=== PATIENT | female | born 1965 | race Caucasian/White ===

== ENCOUNTER 2020-07-29 16:05 | Observation (INO) ==
--- NOTE | 2020-07-29 16:35 | Emergency Department Note ---
History of Present Illness General Chief Complaint: Cardiac Assessment Stated Complaint: PAIN LOWER BACK, CHEST PAIN, DR TROY Time Seen by Provider: 07/29/20 16:21 History of Present Illness Provider Complaint: chest pain Onset (ago): day(s) 3 Duration: intermittent Onset: during exertion Pain Location: substernal Pain Radiation: none Severity: moderate Maximum Pain Intensity: 7 Current Pain Intensity: 7 Quality: + aching Relieved By: + nothing Exacerbated By: + exertion and + inspiration Context: no recent illness, no recent surgery, no recent immobilization, no recent travel and no history of DVT/PE Associated symptoms: no nausea, no vomiting, no diaphoresis, no dyspnea, no syncope, no palpitations, no fever, no cough and no leg swelling Home Medications Medication Instructions Recorded Confirmed Type albuterol sulfate 2 puff INHALATION QID PRN 07/29/20 07/29/20 History alprazolam 1 mg PO QID PRN 07/29/20 07/29/20 History atorvastatin 40 mg PO DAILY 07/29/20 07/29/20 History budesonide-formoterol [Symbicort] 2 puff INHALATION BID 07/29/20 07/29/20 History citalopram 10 mg PO QAM 07/29/20 07/29/20 History citalopram 40 mg PO QAM 07/29/20 07/29/20 History epinephrine 0.3 mg IM Q4H PRN 07/29/20 07/29/20 History losartan 25 mg PO DAILY 07/29/20 07/29/20 History mirtazapine 30 mg PO HS 07/29/20 07/29/20 History montelukast [Singulair] 10 mg PO PM 07/29/20 07/29/20 History pantoprazole [Protonix] 20 mg PO DAILY 07/29/20 07/29/20 History quetiapine [Seroquel] 400 mg PO QPM 07/29/20 07/29/20 History tiotropium bromide [Spiriva with 1 cap INHALATION DAILY 07/29/20 07/29/20 History HandiHaler] topiramate 100 mg PO BID 07/29/20 07/29/20 History zolpidem 10 mg PO HS PRN 07/29/20 07/29/20 History Allergies Allergy/AdvReac Type Severity Reaction Status Date / Time aspirin Allergy Unknown UNKNOWN Unverified 07/29/20 18:09 bee venom protein (honey bee) Allergy Unknown UNKNOWN Unverified 07/29/20 18:09 Cipro Allergy Unknown UNKNOWN Unverified 03/24/17 21:04 ciprofloxacin [Cipro] Allergy Unknown UNKNOWN Unverified 07/29/20 18:09 propoxyphene Allergy Unknown UNKNOWN Unverified 07/29/20 18:10 Past Med/Surg History Medical History (Updated 07/29/20 @ 18:44 by Mando Bello) Anxiety Bipolar 1 disorder COPD (chronic obstructive pulmonary disease) HLD (hyperlipidemia) HTN (hypertension) Surgical History (Updated 07/29/20 @ 16:38 by Mando Bello) No pertinent past surgical history Family History (Updated 07/29/20 @ 16:38 by Mando Bello) Grandmother Myocardial infarction Other Hypertension Social History (Updated 07/29/20 @ 18:15 by Sylwia Toledo MD) Smoking Status: Former smoker Number of Years Since Quit: 4; Review of Systems A total of 10 systems reviewed and were otherwise negative Physical Exam Vital Signs Vital Signs - 24 hr 07/29/20 16:10 07/29/20 16:36 07/29/20 16:43 Temperature 36.7 C Temperature Source Oral Pulse Rate 88 87 Pulse Rate [Finger] Pulse Rate from SpO2 Sensor Pulse Rhythm Regular Pulse Rhythm [Finger] Respiratory Rate 18 24 17 Respiratory Effort / Characteristics Respiratory Pattern Blood Pressure 155/84 H Blood Pressure [Left Arm] Blood Pressure Mean 107 Blood Pressure Mean [Left Arm] Blood Pressure Position [Left Arm] Pulse Oximetry 98 96 Oxygen Delivery Method Room Air Room Air Sepsis Recent Fever Within 48 Hours No Sepsis New/Unexplained Change in Mental Status No Sepsis Action Taken by Nursing No Action Required 07/29/20 17:00 07/29/20 17:07 07/29/20 17:16 Temperature Temperature Source Pulse Rate 92 H 88 104 H Pulse Rate [Finger] 88 Pulse Rate from SpO2 Sensor 90 88 Pulse Rhythm Pulse Rhythm [Finger] Regular Respiratory Rate 24 24 20 Respiratory Effort / Characteristics Short of Breath Respiratory Pattern Tachypnea Blood Pressure 133/82 Blood Pressure [Left Arm] 133/82 Blood Pressure Mean 99 Blood Pressure Mean [Left Arm] 99 Blood Pressure Position [Left Arm] Sitting Pulse Oximetry 95 98 Oxygen Delivery Method Room Air Sepsis Recent Fever Within 48 Hours Sepsis New/Unexplained Change in Mental Status Sepsis Action Taken by Nursing 07/29/20 17:20 07/29/20 17:30 07/29/20 17:40 Temperature Temperature Source Pulse Rate 93 H 91 H 88 Pulse Rate [Finger] Pulse Rate from SpO2 Sensor 91 H 90 88 Pulse Rhythm Pulse Rhythm [Finger] Respiratory Rate 26 H 24 21 Respiratory Effort / Characteristics Respiratory Pattern Blood Pressure Blood Pressure [Left Arm] Blood Pressure Mean Blood Pressure Mean [Left Arm] Blood Pressure Position [Left Arm] Pulse Oximetry 95 97 99 Oxygen Delivery Method Room Air Sepsis Recent Fever Within 48 Hours Sepsis New/Unexplained Change in Mental Status Sepsis Action Taken by Nursing 07/29/20 17:50 07/29/20 18:00 Temperature Temperature Source Pulse Rate 92 H 89 Pulse Rate [Finger] Pulse Rate from SpO2 Sensor 91 H 90 Pulse Rhythm Pulse Rhythm [Finger] Respiratory Rate 19 22 Respiratory Effort / Characteristics Respiratory Pattern Blood Pressure Blood Pressure [Left Arm] Blood Pressure Mean Blood Pressure Mean [Left Arm] Blood Pressure Position [Left Arm] Pulse Oximetry 98 98 Oxygen Delivery Method Sepsis Recent Fever Within 48 Hours Sepsis New/Unexplained Change in Mental Status Sepsis Action Taken by Nursing Physical Exam GENERAL: She is oriented to person, place, and time. She appears well-developed and well-nourished. She does not appear distressed. HENT: Exam performed. -Head: Normocephalic and atraumatic. -Right Ear: External ear normal. No mastoid tenderness. -Left Ear: External ear normal. No mastoid tenderness. -Mouth/Throat: The oropharynx is clear and moist. No trismus in the jaw. No dental abscesses or uvula swelling. No oropharyngeal exudate or tonsillar abscesses. EYES: Conjunctivae and EOM are normal. Pupils are equal, round, and reactive to light. Right eye exhibits no discharge. Left eye exhibits no discharge. No scleral icterus. NECK: Normal range of motion. Neck supple. No JVD present. No spinous process tenderness present. No carotid bruit present. No rigidity. No tracheal deviation and normal range of motion present. No Brudzinski's sign and no Kernig's sign noted. CV: Normal rate, regular rhythm, normal heart sounds and intact distal pulses. There is no peripheral edema. Palpable radial pulses bue. PULM/CHEST: Effort normal and breath sounds normal. No respiratory distress. No stridor. She has no wheezes. She has no rales. -Chest Wall: She exhibits no tenderness. ABD: The abdomen is soft. Bowel sounds are normal. She has no distension. No mass is present. There is no tenderness. There is no rebound, no guarding, no Sanchez's sign and no tenderness at McBurney's point. Rovsig negative MUSC/SKEL: Normal range of motion. There is no peripheral edema, tenderness or deformity. LYMPH: No cervical adenopathy. NEURO: She is alert and oriented to person, place, and time. She has normal strength. No cranial nerve deficit or sensory deficit. Coordination and gait normal. GCS eye subscore is 4. GCS verbal subscore is 5. GCS motor subscore is 6. Cerebellar tests wnl. SKIN: Skin is warm and dry. She is not diaphoretic. PSYCH: She has a normal mood and affect. Behavior is normal. Judgment and thought content normal. Course Course 1621: The patient was evaluated in room B10. A complete history and physical exam was performed. Cardiac monitoring: An order was placed for continuous cardiac monitoring. The monitor shows a rate of 90 with sinus rhythm 1733: Vital signs stable. Labs and imaging within normal limits. Patient was offered inpatient observation versus outpatient follow-up and patient chose inpatient observation for rule out ACS. Dr. Benito [facility] hospitalist team was notified. Medical Decision Making Laboratory Data Result diagrams: 07/29/20 16:35 07/29/20 16:35 Labs: Lab Results 07/29/20 07/29/20 07/29/20 Range/Units 16:35 16:35 16:35 WBC 8.61 (4.8-10.8) K/uL RBC 4.58 (4.2-5.4) M/uL Hgb 13.7 (12.0-16.0) g/dL Hct 42.1 (37-47) % MCV 91.9 (80-100) fL MCH 29.9 (25-34) pg MCHC 32.5 (32-36) g/dL RDW Std Deviation 47.1 H (36.4-46.3) fL RDW Coeff of Allison 14.1 (11.5-14.5) % Plt Count 338 (130-400) K/uL MPV 9.6 (7.4-10.4) fL Immature Gran % (Auto) 0.3 % Neut % (Auto) 62.3 % Lymph % (Auto) 26.2 % [place] % (Auto) 6.0 % Eos % (Auto) 4.6 % Baso % (Auto) 0.6 % Neut # (Auto) 5.35 (1.4-6.5) K/uL Lymph # (Auto) 2.26 (1.2-3.4) K/uL [place] # (Auto) 0.52 (0.11-0.59) K/uL Eos # (Auto) 0.40 (0-0.5) K/uL Baso # (Auto) 0.05 (0-0.2) K/uL Immature Gran # (Auto) 0.03 H (0.00-0.02) K/uL PT 9.9 (9.0-12.0) Seconds INR 1.0 (0.9-1.1) APTT 25.9 (21.0-31.0) Seconds PTT Ratio 1.0 D-Dimer 310 (0-500) ug/L FEU Sodium 142 (136-145) mmol/L Potassium 4.0 (3.5-5.1) mmol/L Chloride 111 H (98-107) mmol/L Carbon Dioxide 27 (21-32) mmol/L Anion Gap 4.0 (3-11) BUN 13 (7-18) mg/dl Creatinine 0.96 (0.6-1.2) mg/dl Est Cr Clr Drug Dosing 82.6 ml/min Est GFR ( Amer) 78.3 Est GFR (Non-Af Amer) 67.5 BUN/Creatinine Ratio 13.2 (10-20) Glucose 98 (70-99) mg/dl Calcium 8.6 (8.5-10.1) mg/dl Troponin I < 0.015 (0-0.045) ng/ml Lipase 144 (73-393) U/L COVID-19 Eval Order SARS-CoV-2, RNA, NAAT (NEGATIVE) 07/29/20 07/29/20 Range/Units 17:20 17:20 WBC (4.8-10.8) K/uL RBC (4.2-5.4) M/uL Hgb (12.0-16.0) g/dL Hct (37-47) % MCV (80-100) fL MCH (25-34) pg MCHC (32-36) g/dL RDW Std Deviation (36.4-46.3) fL RDW Coeff of Allison (11.5-14.5) % Plt Count (130-400) K/uL MPV (7.4-10.4) fL Immature Gran % (Auto) % Neut % (Auto) % Lymph % (Auto) % [place] % (Auto) % Eos % (Auto) % Baso % (Auto) % Neut # (Auto) (1.4-6.5) K/uL Lymph # (Auto) (1.2-3.4) K/uL [place] # (Auto) (0.11-0.59) K/uL Eos # (Auto) (0-0.5) K/uL Baso # (Auto) (0-0.2) K/uL Immature Gran # (Auto) (0.00-0.02) K/uL PT (9.0-12.0) Seconds INR (0.9-1.1) APTT (21.0-31.0) Seconds PTT Ratio D-Dimer (0-500) ug/L FEU Sodium (136-145) mmol/L Potassium (3.5-5.1) mmol/L Chloride (98-107) mmol/L Carbon Dioxide (21-32) mmol/L Anion Gap (3-11) BUN (7-18) mg/dl Creatinine (0.6-1.2) mg/dl Est Cr Clr Drug Dosing ml/min Est GFR ( Amer) Est GFR (Non-Af Amer) BUN/Creatinine Ratio (10-20) Glucose (70-99) mg/dl Calcium (8.5-10.1) mg/dl Troponin I (0-0.045) ng/ml Lipase (73-393) U/L COVID-19 Eval Order Covid19 IDNow [facility] SARS-CoV-2, RNA, NAAT NEGATIVE (NEGATIVE) Imaging Data Chest x-ray: Radiologist's impression: XR chest 2V PA/lateral HISTORY: 55 years-old Female Chest Pain acute atypical chest pain with shortness of breath COMPARISON: Chest radiographs 03/24/2017 TECHNIQUE: PA and lateral views of the chest FINDINGS: Cardiac silhouette is mildly enlarged. No pneumothorax, pleural effusion, airspace consolidation or overt pulmonary edema. Bones of the chest appear grossly intact. Cholecystectomy. IMPRESSION: No acute process. ACT 112: Negative or not required by law. The above report was generated using voice recognition software. It may contain grammatical, syntax or spelling errors. Electronically signed by: Darin Cespedes M.D. 07/29/2020 5:01 PM Dictated: 07/29/201699 Transcribed: 07/29/201699 ECG Data Indication: chest pain Rate (beats per minute): 90 Rhythm: normal sinus Findings: no ST depression, no ST elevation and no prolonged QT MDM Narrative 1621: The patient was evaluated in room B10. A complete history and physical exam was performed. Cardiac monitoring: An order was placed for continuous cardiac monitoring. The monitor shows a rate of 90 with sinus rhythm 1733: Vital signs stable. Labs and imaging within normal limits. Patient was offered inpatient observation versus outpatient follow-up and patient chose inpatient observation for rule out ACS. Dr. Benito [facility] hospitalist team was notified. Impression & Plan Chest pain Discharge Plan Visit Data Chief Complaint: Cardiac Assessment Stated Complaint: PAIN LOWER BACK, CHEST PAIN, DR SIMMONS ED Provider: Mando Bello Discharge Problem: Chest pain Patient Disposition: Being Evaluated by Hospitalist Forms Stand Alone Forms: [facility] Prescriptions Prescriptions: No Action losartan 25 mg Tablet 25 mg PO DAILY RF: 0 pantoprazole [Protonix] 20 mg Tablet,Delayed Release (Dr/Ec) 20 mg PO DAILY RF: 0 atorvastatin 40 mg Tablet 40 mg PO DAILY RF: 0 albuterol sulfate 90 mcg/actuation Hfa Aerosol Inhaler 2 puff INHALATION QID PRN (Reason: Shortness Of Breath Or Wheezing) RF: 0 epinephrine 0.3 mg/0.3 mL Auto-Injector 0.3 mg IM Q4H PRN (Reason: Allergic Reaction) RF: 0 montelukast [Singulair] 10 mg Tablet 10 mg PO PM RF: 0 budesonide-formoterol [Symbicort] 80-4.5 mcg/actuation Hfa Aerosol Inhaler 2 puff INHALATION BID RF: 0 Spiriva with HandiHaler 18 mcg Capsule, W/Inhalation Device 1 cap INHALATION DAILY RF: 0 mirtazapine 30 mg Tablet 30 mg PO HS RF: 0 citalopram 10 mg Tablet 10 mg PO QAM RF: 0 alprazolam 1 mg Tablet 1 mg PO QID PRN (Reason: Anxiety) RF: 0 topiramate 100 mg Tablet 100 mg PO BID RF: 0 zolpidem 10 mg Tablet 10 mg PO HS PRN (Reason: Insomnia) RF: 0 quetiapine [Seroquel] 400 mg Tablet 400 mg PO QPM RF: 0 citalopram 40 mg Tablet 40 mg PO QAM RF: 0 Referrals Referrals: Marilu Kunz PA-C [Primary Care Provider] - Discharge Problem: Chest pain Qualifiers: Chest pain type: unspecified Qualified Code(s): R07.9 - Chest pain, unspecified
[2020-07-29 16:48] LABS: Basophils # (auto) 0.05 K/uL (0-0.2); Basophils % (auto) 0.6 %; Eosinophils % (auto) 4.6 %; Hematocrit (blood only) 42.1 % (37-47); Hemoglobin 13.7 g/dL (12.0-16.0); Immature Granulocytes # (auto) 0.03 K/uL (0.00-0.02); Immature Granulocytes % (auto) 0.3 %; Lymphocytes # (auto) 2.26 K/uL (1.2-3.4); Lymphocytes % (auto) 26.2 %; Mean Corpuscular Hemoglobin 29.9 pg (25-34); Mean Corpuscular Hgb Conc 32.5 g/dL (32-36); Mean Corpuscular Volume 91.9 fL (80-100); Mean Platelet Volume 9.6 fL (7.4-10.4); Monocytes # (auto) 0.52 K/uL (0.11-0.59); Neutrophils # (auto) 5.35 K/uL (1.4-6.5); Neutrophils % (auto) 62.3 %; Platelet Count 338 K/uL (130-400); RDW Coefficient of Variation 14.1 % (11.5-14.5); RDW Standard Deviation 47.1 fL (36.4-46.3); Red Blood Count 4.58 M/uL (4.2-5.4); White Blood Count 8.61 K/uL (4.8-10.8)
--- NOTE | 2020-07-29 17:02 | XRay Report ---
XR chest 2V PA/lateral HISTORY: 55 years-old Female Chest Pain acute atypical chest pain with shortness of breath COMPARISON: Chest radiographs 03/24/2017 TECHNIQUE: PA and lateral views of the chest FINDINGS: Cardiac silhouette is mildly enlarged. No pneumothorax, pleural effusion, airspace consolidation or o vert pulmonary edema. Bones of the chest appear grossly intact. Cholecystectomy. IMPRESSION: No acute process. ACT 112: Negative or not required by law. The above report was generated using voice recognition software. It may contain grammatical, syntax o r spelling errors. Electronically signed by: Darin Cespedes M.D. 07/29/2020 5:01 PM
[2020-07-29 17:04] LABS: D Dimer 310 ug/L FEU (0-500); Partial Thromboplastin Time 25.9 Seconds (21.0-31.0); Prothrombin Time 9.9 Seconds (9.0-12.0)
[2020-07-29 17:09] LABS: BUN Creatinine Ratio 13.2 (10-20); Blood Urea Nitrogen 13 mg/dl (7-18); Calcium 8.6 mg/dl (8.5-10.1); Carbon Dioxide 27 mmol/L (21-32); Chloride 111 mmol/L (98-107); Creatinine Clr Calc Pharmacy 82.6 ml/min; Est GFR (African American) 78.3; Est GFR (Non-African American) 67.5; Glucose 98 mg/dl (70-99); Lipase 144 U/L (73-393); Sodium 142 mmol/L (136-145)
[2020-07-29 17:13] LABS: Troponin I < 0.015 ng/ml (0-0.045)
[2020-07-29] MEDS ORDERED: ALUMINUM/MAGNESIUM SUSP 30 ML UDC PO PRN (17:57)
[2020-07-29] MEDS ORDERED: MAGNESIUM HYDROXIDE SUSP 30 ML UDC PO PRN (17:57)
[2020-07-29] MEDS ORDERED: ONDANSETRON INJ 2 MG/ML 2 ML VIAL IV PRN (17:57)
[2020-07-29] MEDS ORDERED: ACETAMINOPHEN 325 MG TAB PO PRN (17:57)
[2020-07-29] MEDS ORDERED: NITROGLYCERIN SL 0.4 MG/TAB TAB SL PRN (17:57)
[2020-07-29] MEDS ORDERED: ALBUT/IPRATROP 3MG/0.5MG NEB 3 ML VIAL NEB PRN (18:07)
--- NOTE | 2020-07-29 18:34 | History & Physical Report ---
Date of Service July 29, 2020 Assessment & Plan (1) Chest pain on exertion: 55 yo F with hx COPD, HTN, HLD, Bipolar 1 who presented to the ER for multiple days of chest pain, admitted for observation and cardiac workup. Chest Pain - Normal EKG, negative troponin x1, CXR without signs of cardiomegaly, pleural effusion, pulmonary edema. - unlikely to be acute LA. possible unstable angina. - Repeat BMP, Troponin in AM. - dobutamine stress echo ordered for AM given SOB with minimal walking + COPD - lipid panel, A1c ordered - nitro tab with chest pain - daily EKG at 7 am - continue atorvastatin 40 mg and antihypertensives as below (2) SOB (shortness of breath) on exertion: - likely secondary to chest pain with exertion + underlying COPD - continue spiriva, singulair, symbicort - duoneb PRN (3) HLD (hyperlipidemia): - continue statin as above - lipid panel pending - a1c pending (4) HTN (hypertension): - continue losartan 25 mg daily (5) COPD (chronic obstructive pulmonary disease): as above for SOB (6) Anxiety: - continue home citalopram - continue alprazolam 1 mg PO QID PRN (7) Bipolar 1 disorder: - continue mirtazipine 30 mg PO HS, seroquel 400 mg PO HS, topiramate 100 mg PO BID, zolpidem 10 mg PO HS PRN (8) Alcohol abuse: - Patient describes herself as a recovering alcoholic - drinks a fifth of alcohol every other weekend - may benefit from discussion of alcohol cessation in the context of chest pain/worsening heart disease (9) DVT prophylaxis: FEN/GI: Heart healthy, pantoprazole daily DVT Prophylaxis: lovenox Code Status: Full Code Dispo: Med surg with tele, home after workup History of Present Illness 55 yo F with hx HTn, HLD, COPD, Bipolar 1 presenting to ER for 3 days of chest pain that she initially thought was indigestion. This morning was concerned when the pain felt like a pressure, called her doctor for a same day appointment. She was evaluated at the physician's office and sent to the ER for workup. She has not tried anything to improve the pain. She does get short of breath and has chest pain when exerting herself. She is unable to walk up the 21 steps to her apartment without stopping to recover at step 10. She has new symptoms of SOB when laying down for the past 3 days, which is improved by sitting up. She denies any peripheral edema, worsened or new cough, trouble breathing at rest. She does attest that she likes to eat salty foods and "probably overdid it" on (4 days ago) when she put salt on her pizza and drank 4 alcoholic beverages in addition to 5 shots. No significant intervention in ER. Patient was uncomfortable with the option of outpatient cardiac followup, particularly after having one episode of diarrhea in the ER. Admitted for observation and cardiac workup. Primary Care Provider: Marilu Kunz Allergies Allergy/AdvReac Type Severity Reaction Status Date / Time aspirin Allergy Unknown UNKNOWN Unverified 07/29/20 18:09 bee venom protein (honey bee) Allergy Unknown UNKNOWN Unverified 07/29/20 18:09 Cipro Allergy Unknown UNKNOWN Unverified 03/24/17 21:04 ciprofloxacin [Cipro] Allergy Unknown UNKNOWN Unverified 07/29/20 18:09 propoxyphene Allergy Unknown UNKNOWN Unverified 07/29/20 18:10 Home Medications Medication Instructions Recorded Confirmed Type albuterol sulfate 2 puff INHALATION QID PRN 07/29/20 07/29/20 History alprazolam 1 mg PO QID PRN 07/29/20 07/29/20 History atorvastatin 40 mg PO DAILY 07/29/20 07/29/20 History budesonide-formoterol [Symbicort] 2 puff INHALATION BID 07/29/20 07/29/20 History citalopram 10 mg PO QAM 07/29/20 07/29/20 History citalopram 40 mg PO QAM 07/29/20 07/29/20 History epinephrine 0.3 mg IM Q4H PRN 07/29/20 07/29/20 History losartan 25 mg PO DAILY 07/29/20 07/29/20 History mirtazapine 30 mg PO HS 07/29/20 07/29/20 History montelukast [Singulair] 10 mg PO PM 07/29/20 07/29/20 History pantoprazole [Protonix] 20 mg PO DAILY 07/29/20 07/29/20 History quetiapine [Seroquel] 400 mg PO QPM 07/29/20 07/29/20 History tiotropium bromide [Spiriva with 1 cap INHALATION DAILY 07/29/20 07/29/20 History HandiHaler] topiramate 100 mg PO BID 07/29/20 07/29/20 History zolpidem 10 mg PO HS PRN 07/29/20 07/29/20 History Past Med/Surg History Medical History (Updated 07/29/20 @ 18:44 by Mando Bello) Anxiety Bipolar 1 disorder COPD (chronic obstructive pulmonary disease) HLD (hyperlipidemia) HTN (hypertension) Surgical History (Updated 07/29/20 @ 16:38 by Mnado Bello) No pertinent past surgical history Family History (Updated 07/29/20 @ 16:38 by Mando Bello) Grandmother Myocardial infarction Other Hypertension Social History (Updated 07/29/20 @ 18:15 by Sylwia Toledo MD) Smoking Status: Former smoker Cigarettes Per Day: 1PPD for 30 years, quit 4 years ago; Number of Years Since Quit: 4; Second Hand Exposure: No; Do You Dip or Chew Tobacco: No; Tobacco Cessation Education Requested by Patient: No Hx Alcohol Use: Yes Alcohol type: hard liquor Hx Substance Use: No Preferred Language: Wallisian 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 Ability: Effective 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 Battery Required: No Beliefs That Will Affect Care: None Current Living Situation: Alone Other Information That Helps Us Care for You: No Feels Safe at Home: Yes Safety Concerns: Feels Safe At This Time Assistive Devices: CPAP and Glasses Assistive Devices Comment: Glasses at bedside Review of Systems Constitutional: no fever, no chills, no body aches and no weakness Eyes: no diplopia Respiratory: + dyspnea on exertion and + pain on inspiration; no cough Cardiovascular: + chest pain with activity, + dyspnea on exertion, + orthopnea and + palpitations; no radiating jaw, neck or arm pain and no edema Gastrointestinal: + diarrhea/loose stools; no abdominal pain, no nausea, no vomiting, no blood in stools and no melena Musculoskeletal: no back pain Neurologic: no gait abnormality, no falls and no loss of sensation Physical Exam Physical Exam: Constitutional: obese, in no apparent distress, sitting up comfortably in bed. Eyes: EOMI, pupils equal and reactive bilaterally, no scleral icterus Cardiac: RRR, no murmurs, gallops or rubs. Normal S1, S2 Pulm: CTA BL, no wheezes, rhonchi, crackles or rubs, poor inspiratory effort, difficult to auscultate bases of lungs bilaterally. no extra work of breathing on room air. Abd: soft, nontender, nondistended, normal bowel sounds, no rebound or guarding Extremities: 2+ peripheral pulses, no pedal edema Neuro: no focal deficits, moving all 4 limbs, A&Ox3 Results & Data Results & Data ([facility]) Vital Signs (Past 12 Hours) Vital Signs Temp Pulse Pulse Resp BP BP Pulse Ox 07/29/20 18:00 89 22 98 07/29/20 17:50 92 H 19 98 07/29/20 17:40 88 21 99 07/29/20 17:30 91 H 24 97 07/29/20 17:20 93 H 26 H 95 07/29/20 17:16 104 H 20 07/29/20 17:07 88 88 24 133/82 133/82 98 07/29/20 17:00 92 H 24 95 07/29/20 16:43 87 17 07/29/20 16:36 88 24 96 07/29/20 16:10 36.7 C 18 155/84 H 98 Laboratory Results WBC 8.61 K/uL (4.8-10.8) 07/29/20 16:35 RBC 4.58 M/uL (4.2-5.4) 07/29/20 16:35 Hgb 13.7 g/dL (12.0-16.0) 07/29/20 16:35 Hct 42.1 % (37-47) 07/29/20 16:35 MCV 91.9 fL (80-100) 07/29/20 16:35 MCH 29.9 pg (25-34) 07/29/20 16:35 MCHC 32.5 g/dL (32-36) 07/29/20 16:35 RDW Std Deviation 47.1 fL (36.4-46.3) H 07/29/20 16:35 RDW Coeff of Allison 14.1 % (11.5-14.5) 07/29/20 16:35 Plt Count 338 K/uL (130-400) 07/29/20 16:35 MPV 9.6 fL (7.4-10.4) 07/29/20 16:35 Immature Gran % (Auto) 0.3 % 07/29/20 16:35 Neut % (Auto) 62.3 % 07/29/20 16:35 Lymph % (Auto) 26.2 % 07/29/20 16:35 [place] % (Auto) 6.0 % 07/29/20 16:35 Eos % (Auto) 4.6 % 07/29/20 16:35 Baso % (Auto) 0.6 % 07/29/20 16:35 Neut # (Auto) 5.35 K/uL (1.4-6.5) 07/29/20 16:35 Lymph # (Auto) 2.26 K/uL (1.2-3.4) 07/29/20 16:35 [place] # (Auto) 0.52 K/uL (0.11-0.59) 07/29/20 16:35 Eos # (Auto) 0.40 K/uL (0-0.5) 07/29/20 16:35 Baso # (Auto) 0.05 K/uL (0-0.2) 07/29/20 16:35 Immature Gran # (Auto) 0.03 K/uL (0.00-0.02) H 07/29/20 16:35 PT 9.9 Seconds (9.0-12.0) 07/29/20 16:35 INR 1.0 (0.9-1.1) 07/29/20 16:35 APTT 25.9 Seconds (21.0-31.0) 07/29/20 16:35 PTT Ratio 1.0 07/29/20 16:35 D-Dimer 310 ug/L FEU (0-500) 07/29/20 16:35 Sodium 142 mmol/L (136-145) 07/29/20 16:35 Potassium 4.0 mmol/L (3.5-5.1) 07/29/20 16:35 Chloride 111 mmol/L (98-107) H 07/29/20 16:35 Carbon Dioxide 27 mmol/L (21-32) 07/29/20 16:35 Anion Gap 4.0 (3-11) 07/29/20 16:35 BUN 13 mg/dl (7-18) 07/29/20 16:35 Creatinine 0.96 mg/dl (0.6-1.2) 07/29/20 16:35 Est Cr Clr Drug Dosing 82.6 ml/min 07/29/20 16:35 Est GFR ( Amer) 78.3 07/29/20 16:35 Est GFR (Non-Af Amer) 67.5 07/29/20 16:35 BUN/Creatinine Ratio 13.2 (10-20) 07/29/20 16:35 Glucose 98 mg/dl (70-99) 07/29/20 16:35 Calcium 8.6 mg/dl (8.5-10.1) 07/29/20 16:35 Troponin I < 0.015 ng/ml (0-0.045) 07/29/20 16:35 Lipase 144 U/L (73-393) 07/29/20 16:35 COVID-19 Eval Order Covid19 IDNow [facility] 07/29/20 17:20 SARS-CoV-2, RNA, NAAT NEGATIVE (NEGATIVE) 07/29/20 17:20 Supervising Physician Co-Signing Physician Notes I personally saw and examined the patient. I verified all davis points and agree with Resident Physician Dr Sylwia Toledo with the following exceptions and/or additions: 55 year old female with chest pain on exertion for the last 3 days culminating with chest pain at rest today. Associated shortness of breath but no nausea or diaphoresis. Initial chest pressure previously relieved by belching but no relief with this today. Current chest pain free when seen in the ER. O/E Obese, HS 1+2, RRR, no murmurs, Chest CTAB, trace pre-tibial pitting edema b/l, PT/DP pulses intact A/P Atypical chest pain - some typical components including association with shortness of breath and on exertion with relief at rest. Unlikely ACS, HEART score 2. Unable to take aspirin due to throat swelling. Trend troponins overnight. Patient feels she will be able to do treadmill stress echo tomorrow therefore will initially arrange for this but may have to be switched to dobutamine stress echo if unable to complete. Resident Activity Tracking Resident Involvement: Resident Care Provided Care Provided: Adult [facility] Medicine
[2020-07-29] MEDS ORDERED: ALBUTEROL HFA 8 GM INHALER INH PRN (19:51)
[2020-07-29] MEDS ORDERED: ZOLPIDEM TARTRATE 10 MG TAB PO PRN (19:51)
[2020-07-29 19:55] LABS: Alanine Aminotransferase 89 U/L (12-78); Albumin Level 3.7 gm/dl (3.4-5.0); Alkaline Phosphatase 144 U/L (45-117); Aspartate Aminotransferase 68 U/L (15-37); Bilirubin Direct < 0.1 mg/dl (0-0.2); Bilirubin,Total 0.2 mg/dl (0.2-1)
[2020-07-29] MEDS: ALPRAZolam 0.5 MG TABLET PO SCH (21:07)
[2020-07-29] MEDS: MIRTAZAPINE TAB 15 MG TAB PO SCH (21:08)
[2020-07-29] MEDS: QUEtiapine FUMARATE 200 MG TAB PO SCH (21:08)
[2020-07-29] MEDS: MONTELUKAST SODIUM 10 MG TABLET PO SCH (21:08)
[2020-07-29] MEDS: TOPIRAMATE 100 MG TAB PO SCH (21:08)
[2020-07-30 06:59] LABS: Estimated Average Glucose 126 mg/dl
[2020-07-30 07:01] LABS: BUN Creatinine Ratio 13.5 (10-20); Blood Urea Nitrogen 13 mg/dl (7-18); Calcium 8.3 mg/dl (8.5-10.1); Carbon Dioxide 27 mmol/L (21-32); Chloride 110 mmol/L (98-107); Creatinine Clr Calc Pharmacy 81.5 ml/min; Est GFR (African American) 77.3; Est GFR (Non-African American) 66.7; Glucose 105 mg/dl (70-99); Potassium 3.5 mmol/L (3.5-5.1); Sodium 142 mmol/L (136-145)
[2020-07-30 07:06] LABS: Chol HDL Ratio 5; Cholesterol 230 mg/dl (0-200); HDL Cholesterol 47 mg/dl; LDL Cholesterol Calculated 161 mg/dl; Triglycerides 110 mg/dl (0-150); Troponin I < 0.015 ng/ml (0-0.045); VLDL Cholesterol 22 mg/dl
[2020-07-30] MEDS ORDERED: LORazepam 1 MG TAB PO PRN (08:12)
[2020-07-30] MEDS ORDERED: MULTI-VITAMIN INFUSION 10 ML, THIAMINE HCL 100 MG, FOLIC ACID 1 MG in SODIUM CHLORIDE 0... IV ONE (08:45)
[2020-07-30] MEDS ORDERED: PERFLUTREN LIPID MICROSPHERE (DEFINITY) IV ONE (09:11)
[2020-07-30] MEDS ORDERED: METOPROLOL TARTRATE 1 MG/ML VIAL IV ONE (09:27)
[2020-07-30] MEDS ORDERED: ATROPINE SULFATE 0.1 MG/ML 10ML SYR IV ONE (09:27)
[2020-07-30] MEDS ORDERED: DOBUTamine HCL 12.5 MG/ML 20 ML VIAL IV ONE (09:27)
[2020-07-30] MEDS: FOLIC ACID 1 MG TAB PO SCH (09:39)
[2020-07-30] MEDS: ATORVASTATIN 40 MG TAB PO SCH (09:39)
[2020-07-30] MEDS: LOSARTAN POTASSIUM 25 MG TAB PO SCH (09:39)
[2020-07-30] MEDS: CITALOPRAM 20 MG TAB PO SCH (09:39)
[2020-07-30] MEDS: PANTOprazole 40 MG TAB PO SCH (09:40)
[2020-07-30] MEDS: FLUTICASONE/VILANTEROL 100/25MCG 14 PUFFS/INHALER INH SCH (09:40)
[2020-07-30] MEDS: CITALOPRAM 40 MG TAB PO SCH (09:40)
[2020-07-30] MEDS: TOPIRAMATE 100 MG TAB PO SCH ×2 (09:40→20:06)
[2020-07-30] MEDS: UMECLIDINIUM BROMIDE 62.5MCG/BLISTER 7 PUFFS/INHALER INH SCH (09:40)
[2020-07-30] MEDS: ALPRAZolam 0.5 MG TABLET PO SCH ×4 (09:41→22:54)
--- NOTE | 2020-07-30 10:23 | XCELERA ---
[id number] \\[id number]
[2020-07-30 12:00] LABS: Folate (Folic Acid) > 20.00 ng/ml (>5.38); Vitamin B12 473 pg/ml (193-986)
--- NOTE | 2020-07-30 12:04 | Billing Data ---
Date of Service July 29, 2020 Coding Level of Care Code 13628 OBS Care - Level 2
--- NOTE | 2020-07-30 12:17 | XRay Report ---
XR abdomen min 2V HISTORY: 55 years-old Female VOR[facility] for Dr. Mcmahan acute shortness of breath with generalized abdomin al pain COMPARISON: Chest radiographs 07/29/2020 TECHNIQUE: 2 views of the abdomen FINDINGS: Nonobstructive bowel gas pattern. No pneumatosis or pneumoperitoneum. Mild fecal retention. No urolit h or acute fracture identified. Cholecystectomy. IMPRESSION: Nonobstructive bowel gas pattern. ACT 112: Negative or not required by law. The above report was generated using voice recognition software. It may contain grammatical, syntax o r spelling errors. Electronically signed by: Darin Cespedes M.D. 07/30/2020 12:16 PM
[2020-07-30] MEDS: POLYETHYLENE (MIRALAX) 17 GM PACK PO SCH ×2 (12:19→20:04)
--- NOTE | 2020-07-30 14:16 | Hospitalist Progress Note ---
Date of Service July 30, 2020 Assessment & Plan (1) Chest pain on exertion: 55 yo F with hx COPD, HTN, HLD, Bipolar 1 who presented to the ER for multiple days of chest pain, admitted for observation and cardiac workup. #Chest Pain Patient presenting with a chief complaint of chest pain, EKG on admission and since then has been normal, she had negative troponins x3, chest x-ray without significant signs of cardiomegaly, pleural effusion, pulmonary edema. D obutamine stress test was negative, lipid panel was unremarkable with the exception of redemonstration of hyperlipidemia, A1c was 6. Negative ACS/cardiac work-up. -EKG with chest pain #COPD Patient with pulmonary function test demonstrating COPD, most recent PFTs were a year ago, patient is scheduled to follow-up PFTs as an outpatient. - continue spiriva, singulair, symbicort - duoneb PRN #SOB Per patient history, shortness of breath has been increasing progressively over the past 2 months, with an acute increase in symptomology over the last 2 weeks or so. Given negative cardiac work-up, and no history of respiratory pathogens. It is prudent to exclude a pulmonary embolism to that effect will obtain a chest CTA, in the interim we will provide symptomatic care with as needed O2 as indicated and inhalers as described above -Follow-up CTA -As needed O2 -Inhalers as above #Alcohol Abuse Patient describes her self is recovering alcoholic, patient endorses shaking when she stops using alcohol, has never had a seizure before. Per patient history she had 10 alcoholic beverages the other evening, it is unclear whether she drinks on a daily basis or not as her story changed multiple times. To that effect the patient been placed on AWSS protocol. Additionally folate and B12 labs were obtained and were within normal limits. -AWSS protocol test in place -s/p banana bag and folate repletion -Trend daily BMP repeat electrolytes as indicated #Constipation Prior to arrival the patient has not had a bowel movement in greater than a week. Since arrival she had 1 extremely loose bowel movement and one small well-formed bowel movement. Abdominal flatplate obtained this afternoon is suggestive of an element of constipation. To that effect have provided twice daily scheduled MiraLAX. -Twice daily scheduled MiraLAX #Electrolyte disturbances -Replete as indicated #HLD - continue statin as above - a1c 6 -Triglycerides 110, cholesterol 230, LDL 161, VLDL 22, HDL 47 #HTN - continue losartan 25 mg daily #Anxiety - continue home citalopram - continue alprazolam 1 mg PO QID PRN #Bipolar Type 1 - continue mirtazipine 30 mg PO HS, seroquel 400 mg PO HS, topiramate 100 mg PO BID, zolpidem 10 mg PO HS PRN FENa:Heart healthy, pantoprazole daily Code Status:Full DVT PPX: lovenox PT/OT: Not Indicated Dispo: Med [facility] Rafael Mcmahan MD PGY 2, FCM This chart was completed utilizing [employer] voice recognition software. Grammatical errors, random word insertions, pronoun errors, and in complete sentences are an occasional consequence of the system. Any questions or concerns about the content, text, or information contained within the body of this dictation should be addressed directly to the physician for clarification. (2) SOB (shortness of breath) on exertion: (3) HLD (hyperlipidemia): (4) HTN (hypertension): (5) COPD (chronic obstructive pulmonary disease): (6) Anxiety: (7) Bipolar 1 disorder: (8) Alcohol abuse: (9) DVT prophylaxis: Admission and Anticipated Discharge Date Admission Date: July 29, 2020 Supervising Physician Co-Signing Physician Notes I personally examined the patient and verified all davis points of history and exam, discussed case, and agree with decision making with Dr Mcmahan. Dyspnea on exertion started fairly abruptly a few weeks ago. She denies any preceding respiratory symptoms cough fevers chills etc. She notes that around [place] she was doing okay but it was somewhere in the neighborhood of 2 to 3 weeks ago she suddenly started not being able to go up the steps without having to stop to rest etc. She relates that she takes her inhalers regularly 1 daily and 1 twice daily regardless of symptoms, she notes that she takes her albuterol as neededand has been needing it much more often recently. [facility] about a year ago although she is not entirely sure what they showed she believes it showed COPD of some severityand she is due for PFTs and pulmonary appointment in the coming weeks. Vitals noted, in general she is awake and alert pleasant no distress. HEENT normocephalic atraumatic mucous membranes moist. Lungs are clear to auscultation bilaterally somewhat diminished air entry no rales rhonchi or wheezes good effort. Abdomen is soft nondistended nontender no masses organomegaly. Extremities show no cyanosis or clubbing. Dyspnea on exertionfortunately no SD or cardiac cause. After discussion with patient, CT angio checked to rule out PE/subacute PEfortunately this was negative should have a little bit of a nonspecific haziness that could be an atypical infection. She does not really show much as far as signs or symptoms, but given no other clear cause for her fairly abrupt onset of dyspnea on exertionwe will treat for atypicals with azithromycin. Certainly things such as deconditioning or hypoventilation syndromes could be entertained, but given the fairly abrupt onset the seem unlikely. ConstipationMiraLAX DVT prophylaxis Lovenox Otherwise as above Subjective Patient lying in bed this morning in no acute distress having recently returned from her dobutamine stress test. Patient relates she did not like feeling of the dobutamine infusion during the stress test. Briefly reviewed the patient's history patient states for the past 2 months or so she has had progressive deconditioning with an acute exacerbation over the past week. She denies CHF symptoms and reports taking her medicines as prescribed. She does endorse that prior to the 2 bowel movements that she had in the hospital she had not had a bowel movement in over a week. The patient further elaborated on her history of alcoholism. Explaining that she does get the shakes when she stops drinking, denying seizures, endorsing drinking 1/5 of vodka. Physical Exam Physical Exam: General: No acute distress HEENT: Normocephalic atraumatic Neck: Normal vision inspection, trachea midline Cardiac: Regular rate and rhythm I did not appreciate any murmurs rubs or gallops, normal S1, normal S2, negative pedal edema, negative calf tenderness Respiratory: Clear to auscultation bilaterally with symmetrical chest expansion I did not appreciate significant wheezes, rales, rhonchi, normal inspiratory effort GI: Soft, nontender, nondistended, hypoactive bowel sounds MSK: Moves all extremities Neuro: Alert and oriented x4 Results & Data Results & Data ([facility]) Vital Signs (Past 12 Hours) Vital Signs Temp Pulse Pulse Resp BP Pulse Ox 07/30/20 11:07 36.4 C L 67 18 108/73 98 07/30/20 10:00 82 07/30/20 07:15 36.3 C L 76 18 102/70 95 07/30/20 04:05 36.6 C 84 20 108/71 94 Laboratory Results 07/30/20 07/30/20 07/30/20 Range/Units 10:57 05:36 05:36 WBC (4.8-10.8) K/uL RBC (4.2-5.4) M/uL Hgb (12.0-16.0) g/dL Hct (37-47) % MCV (80-100) fL MCH (25-34) pg MCHC (32-36) g/dL RDW Std Deviation (36.4-46.3) fL RDW Coeff of Allison (11.5-14.5) % Plt Count (130-400) K/uL MPV (7.4-10.4) fL Immature Gran % (Auto) % Neut % (Auto) % Lymph % (Auto) % Holt % (Auto) % Eos % (Auto) % Baso % (Auto) % Neut # (Auto) (1.4-6.5) K/uL Lymph # (Auto) (1.2-3.4) K/uL Holt # (Auto) (0.11-0.59) K/uL Eos # (Auto) (0-0.5) K/uL Baso # (Auto) (0-0.2) K/uL Immature Gran # (Auto) (0.00-0.02) K/uL PT (9.0-12.0) Seconds INR (0.9-1.1) APTT (21.0-31.0) Seconds PTT Ratio D-Dimer (0-500) ug/L FEU Sodium 142 (136-145) mmol/L Potassium 3.5 (3.5-5.1) mmol/L Chloride 110 H (98-107) mmol/L Carbon Dioxide 27 (21-32) mmol/L Anion Gap 5.0 (3-11) BUN 13 (7-18) mg/dl Creatinine 0.97 (0.6-1.2) mg/dl Est Cr Clr Drug Dosing 81.5 ml/min Est GFR ( Amer) 77.3 Est GFR (Non-Af Amer) 66.7 BUN/Creatinine Ratio 13.5 (10-20) Glucose 105 H (70-99) mg/dl Estimat Average Glucose 126 mg/dl Hemoglobin A1c 6.0 H (4.5-5.6) % Calcium 8.3 L (8.5-10.1) mg/dl Total Bilirubin (0.2-1) mg/dl Direct Bilirubin (0-0.2) mg/dl AST (15-37) U/L ALT (12-78) U/L Alkaline Phosphatase (45-117) U/L Troponin I < 0.015 (0-0.045) ng/ml Total Protein (6.4-8.2) gm/dl Albumin (3.4-5.0) gm/dl Triglycerides 110 (0-150) mg/dl Cholesterol 230 H (0-200) mg/dl LDL Cholesterol, Calc 161 mg/dl VLDL Cholesterol, Calc 22 mg/dl HDL Cholesterol 47 mg/dl Cholesterol/HDL Ratio 5 Lipase (73-393) U/L Vitamin B12 473 (193-986) pg/ml Folate > 20.00 (>5.38) ng/ml COVID-19 Eval Order SARS-CoV-2, RNA, NAAT (NEGATIVE) 07/29/20 07/29/20 07/29/20 Range/Units 22:11 17:20 17:20 WBC (4.8-10.8) K/uL RBC (4.2-5.4) M/uL Hgb (12.0-16.0) g/dL Hct (37-47) % MCV (80-100) fL MCH (25-34) pg MCHC (32-36) g/dL RDW Std Deviation (36.4-46.3) fL RDW Coeff of Allison (11.5-14.5) % Plt Count (130-400) K/uL MPV (7.4-10.4) fL Immature Gran % (Auto) % Neut % (Auto) % Lymph % (Auto) % Holt % (Auto) % Eos % (Auto) % Baso % (Auto) % Neut # (Auto) (1.4-6.5) K/uL Lymph # (Auto) (1.2-3.4) K/uL Holt # (Auto) (0.11-0.59) K/uL Eos # (Auto) (0-0.5) K/uL Baso # (Auto) (0-0.2) K/uL Immature Gran # (Auto) (0.00-0.02) K/uL PT (9.0-12.0) Seconds INR (0.9-1.1) APTT (21.0-31.0) Seconds PTT Ratio D-Dimer (0-500) ug/L FEU Sodium (136-145) mmol/L Potassium (3.5-5.1) mmol/L Chloride (98-107) mmol/L Carbon Dioxide (21-32) mmol/L Anion Gap (3-11) BUN (7-18) mg/dl Creatinine (0.6-1.2) mg/dl Est Cr Clr Drug Dosing ml/min Est GFR ( Amer) Est GFR (Non-Af Amer) BUN/Creatinine Ratio (10-20) Glucose (70-99) mg/dl Estimat Average Glucose mg/dl Hemoglobin A1c (4.5-5.6) % Calcium (8.5-10.1) mg/dl Total Bilirubin (0.2-1) mg/dl Direct Bilirubin (0-0.2) mg/dl AST (15-37) U/L ALT (12-78) U/L Alkaline Phosphatase (45-117) U/L Troponin I < 0.015 (0-0.045) ng/ml Total Protein (6.4-8.2) gm/dl Albumin (3.4-5.0) gm/dl Triglycerides (0-150) mg/dl Cholesterol (0-200) mg/dl LDL Cholesterol, Calc mg/dl VLDL Cholesterol, Calc mg/dl HDL Cholesterol mg/dl Cholesterol/HDL Ratio Lipase (73-393) U/L Vitamin B12 (193-986) pg/ml Folate (>5.38) ng/ml COVID-19 Eval Order Covid19 IDNow atMLAC SARS-CoV-2, RNA, NAAT NEGATIVE (NEGATIVE) 07/29/20 07/29/20 07/29/20 Range/Units 16:35 16:35 16:35 WBC (4.8-10.8) K/uL RBC (4.2-5.4) M/uL Hgb (12.0-16.0) g/dL Hct (37-47) % MCV (80-100) fL MCH (25-34) pg MCHC (32-36) g/dL RDW Std Deviation (36.4-46.3) fL RDW Coeff of Allison (11.5-14.5) % Plt Count (130-400) K/uL MPV (7.4-10.4) fL Immature Gran % (Auto) % Neut % (Auto) % Lymph % (Auto) % Holt % (Auto) % Eos % (Auto) % Baso % (Auto) % Neut # (Auto) (1.4-6.5) K/uL Lymph # (Auto) (1.2-3.4) K/uL Holt # (Auto) (0.11-0.59) K/uL Eos # (Auto) (0-0.5) K/uL Baso # (Auto) (0-0.2) K/uL Immature Gran # (Auto) (0.00-0.02) K/uL PT 9.9 (9.0-12.0) Seconds INR 1.0 (0.9-1.1) APTT 25.9 (21.0-31.0) Seconds PTT Ratio 1.0 D-Dimer 310 (0-500) ug/L FEU Sodium 142 (136-145) mmol/L Potassium 4.0 (3.5-5.1) mmol/L Chloride 111 H (98-107) mmol/L Carbon Dioxide 27 (21-32) mmol/L Anion Gap 4.0 (3-11) BUN 13 (7-18) mg/dl Creatinine 0.96 (0.6-1.2) mg/dl Est Cr Clr Drug Dosing 82.6 ml/min Est GFR ( Amer) 78.3 Est GFR (Non-Af Amer) 67.5 BUN/Creatinine Ratio 13.2 (10-20) Glucose 98 (70-99) mg/dl Estimat Average Glucose mg/dl Hemoglobin A1c (4.5-5.6) % Calcium 8.6 (8.5-10.1) mg/dl Total Bilirubin 0.2 (0.2-1) mg/dl Direct Bilirubin < 0.1 (0-0.2) mg/dl AST 68 H (15-37) U/L ALT 89 H (12-78) U/L Alkaline Phosphatase 144 H (45-117) U/L Troponin I < 0.015 (0-0.045) ng/ml Total Protein 8.0 (6.4-8.2) gm/dl Albumin 3.7 (3.4-5.0) gm/dl Triglycerides (0-150) mg/dl Cholesterol (0-200) mg/dl LDL Cholesterol, Calc mg/dl VLDL Cholesterol, Calc mg/dl HDL Cholesterol mg/dl Cholesterol/HDL Ratio Lipase 144 (73-393) U/L Vitamin B12 (193-986) pg/ml Folate (>5.38) ng/ml COVID-19 Eval Order SARS-CoV-2, RNA, NAAT (NEGATIVE) 07/29/20 Range/Units 16:35 WBC 8.61 (4.8-10.8) K/uL RBC 4.58 (4.2-5.4) M/uL Hgb 13.7 (12.0-16.0) g/dL Hct 42.1 (37-47) % MCV 91.9 (80-100) fL MCH 29.9 (25-34) pg MCHC 32.5 (32-36) g/dL RDW Std Deviation 47.1 H (36.4-46.3) fL RDW Coeff of Allison 14.1 (11.5-14.5) % Plt Count 338 (130-400) K/uL MPV 9.6 (7.4-10.4) fL Immature Gran % (Auto) 0.3 % Neut % (Auto) 62.3 % Lymph % (Auto) 26.2 % Holt % (Auto) 6.0 % Eos % (Auto) 4.6 % Baso % (Auto) 0.6 % Neut # (Auto) 5.35 (1.4-6.5) K/uL Lymph # (Auto) 2.26 (1.2-3.4) K/uL Holt # (Auto) 0.52 (0.11-0.59) K/uL Eos # (Auto) 0.40 (0-0.5) K/uL Baso # (Auto) 0.05 (0-0.2) K/uL Immature Gran # (Auto) 0.03 H (0.00-0.02) K/uL PT (9.0-12.0) Seconds INR (0.9-1.1) APTT (21.0-31.0) Seconds PTT Ratio D-Dimer (0-500) ug/L FEU Sodium (136-145) mmol/L Potassium (3.5-5.1) mmol/L Chloride (98-107) mmol/L Carbon Dioxide (21-32) mmol/L Anion Gap (3-11) BUN (7-18) mg/dl Creatinine (0.6-1.2) mg/dl Est Cr Clr Drug Dosing ml/min Est GFR ( Amer) Est GFR (Non-Af Amer) BUN/Creatinine Ratio (10-20) Glucose (70-99) mg/dl Estimat Average Glucose mg/dl Hemoglobin A1c (4.5-5.6) % Calcium (8.5-10.1) mg/dl Total Bilirubin (0.2-1) mg/dl Direct Bilirubin (0-0.2) mg/dl AST (15-37) U/L ALT (12-78) U/L Alkaline Phosphatase (45-117) U/L Troponin I (0-0.045) ng/ml Total Protein (6.4-8.2) gm/dl Albumin (3.4-5.0) gm/dl Triglycerides (0-150) mg/dl Cholesterol (0-200) mg/dl LDL Cholesterol, Calc mg/dl VLDL Cholesterol, Calc mg/dl HDL Cholesterol mg/dl Cholesterol/HDL Ratio Lipase (73-393) U/L Vitamin B12 (193-986) pg/ml Folate (>5.38) ng/ml COVID-19 Eval Order SARS-CoV-2, RNA, NAAT (NEGATIVE) Medications Administered Current Inpatient Medications Al Hydrox/Mg Hydrox/Simethicone (Aluminum/Magnesium Susp 30 Ml Udc) 15 ml PO Q4H PRN PRN Reason: Dyspepsia Stop: 08/28/20 17:56 Albuterol (Albut/Ipratrop 3mg/0.5mg Neb 3 Ml Vial) 3 ml NEB BID PRN PRN Reason: Shortness Of Breath Stop: 08/28/20 18:06 Albuterol (Albuterol Hfa 8 Gm Inhaler) 2 puffs INH QID PRN PRN Reason: Shortness Of Breath Or Wheezing Stop: 08/28/20 19:50 Alprazolam (Alprazolam 0.5 Mg Tablet) 1 mg PO QID [facility] Stop: 08/28/20 20:59 Last Admin: 07/30/20 12:26 Dose: 1 mg Documented by: Atorvastatin Calcium (Atorvastatin 40 Mg Tab) 40 mg PO DAILY [facility] Stop: 08/29/20 08:59 Last Admin: 07/30/20 09:39 Dose: 40 mg Documented by: Citalopram Hydrobromide (Citalopram 20 Mg Tab) 10 mg PO QAM [facility] Stop: 08/29/20 08:59 Last Admin: 07/30/20 09:39 Dose: 10 mg Documented by: Citalopram Hydrobromide (Citalopram 40 Mg Tab) 40 mg PO QAM [facility] Stop: 08/29/20 08:59 Last Admin: 07/30/20 09:40 Dose: 40 mg Documented by: Fluticasone/Vilanterol (Fluticasone/Vilanterol 100/25mcg 14 Puffs/Inhaler) 1 puffs INH DAILY [facility]; Protocol Stop: 08/29/20 08:59 Last Admin: 07/30/20 09:40 Dose: 1 puffs Documented by: Folic Acid (Folic Acid 1 Mg Tab) 1 mg PO QAM [facility] Stop: 08/29/20 08:59 Last Admin: 07/30/20 09:39 Dose: 1 mg Documented by: Lorazepam (Lorazepam 1 Mg Tab) 1 mg PO ONE PRN; Protocol PRN Reason: EtoH Withdrawal AWSS 6-10 Losartan Potassium (Losartan Potassium 25 Mg Tab) 25 mg PO DAILY [facility] Stop: 08/29/20 08:59 Last Admin: 07/30/20 09:39 Dose: 25 mg Documented by: Magnesium Hydroxide (Magnesium Hydroxide Susp 30 Ml Udc) 30 ml PO Q12H PRN PRN Reason: Constipation Stop: 08/28/20 17:56 Mirtazapine (Mirtazapine Tab 15 Mg Tab) 30 mg PO HS [facility] Stop: 08/28/20 20:59 Last Admin: 07/29/20 21:08 Dose: 30 mg Documented by: Montelukast Sodium (Montelukast Sodium 10 Mg Tablet) 10 mg PO PM [facility] Stop: 08/28/20 20:59 Last Admin: 07/29/20 21:08 Dose: 10 mg Documented by: Nitroglycerin (Nitroglycerin Sl 0.4 Mg/Tab Tab) 0.4 mg SL UD PRN PRN Reason: Chest Pain Stop: 08/28/20 17:56 Ondansetron HCl (Ondansetron Inj 2 Mg/Ml 2 Ml Vial) 4 mg IV Q6H PRN PRN Reason: Nausea Stop: 08/28/20 17:56 Pantoprazole Sodium (Pantoprazole 40 Mg Tab) 40 mg PO DAILY [facility] Stop: 08/29/20 08:59 Last Admin: 07/30/20 09:40 Dose: 40 mg Documented by: Polyethylene Glycol (Polyethylene (Miralax) 17 Gm Pack) 17 gm PO BID [facility] Stop: 08/29/20 10:29 Last Admin: 07/30/20 12:19 Dose: 17 gm Documented by: Quetiapine Fumarate (Quetiapine Fumarate 200 Mg Tab) 400 mg PO QPM [facility] Stop: 08/28/20 20:59 Last Admin: 07/29/20 21:08 Dose: 400 mg Documented by: Topiramate (Topiramate 100 Mg Tab) 100 mg PO BID [facility] Stop: 08/28/20 20:59 Last Admin: 07/30/20 09:40 Dose: 100 mg Documented by: Umeclidinium Doss (Umeclidinium Doss 62.5mcg/Blister 7 Puffs/Inhaler) 1 puffs INH DAILY [facility] Stop: 08/29/20 08:59 Last Admin: 07/30/20 09:40 Dose: 1 puffs Documented by: Zolpidem Tartrate (Zolpidem Tartrate 10 Mg Tab) 10 mg PO HS PRN PRN Reason: Insomnia Stop: 08/28/20 19:50 Resident Activity Tracking Resident Involvement: Resident Care Provided Care Provided: Adult Hospital Medicine
[2020-07-30] MEDS ORDERED: OPTIRAY 320 125ml IV ONE (17:20)
--- NOTE | 2020-07-30 17:48 | CT Scan Report ---
CHEST CTA for PULMONARY ARTERIES CT DOSE: 592.77 mGy.cm HISTORY: Shortness of breath. TECHNIQUE: Multiaxial CT images of the chest were performed following the intravenous administration of contrast to evaluate the pulmonary arteries. Maximal intensity projection images were also obtaine d. A dose lowering technique was utilized adhering to the principles of ALARA. COMPARISON STUDY: None. FINDINGS: Limited views of the upper abdomen demonstrate hepatomegaly with fatty change. The spleen d emonstrates a normal echotexture. Trace right pleural effusion. No pericardial effusion. The heart is borderline enlarged. Normal esophagus. No mediastinal or hilar lymphadenopathy. Normal caliber thora cic aorta with no evidence for dissection. No filling defects within the pulmonary arteries to sugges t a pulmonary embolus. No suspicious lytic or blastic osseous lesions. No pneumothorax. Mild central bronchial wall thickening. No focal lung consolidations to suggest pneumonia. There is a 4 mm subpleu ral nodule within the superior segment of the right lower lobe on image 162. IMPRESSION: 1. No evidence for pulmonary embolus. 2. Mild central bronchial wall thickening. This could represent a mild bronchitis. 3. Trace right pleural effusion. 4. A 4 mm subpleural nodule within the right lower lobe. Please refer to the chart below for recommen ded follow-up. 5. Hepatomegaly demonstrating fatty change. Please refer to below summary of Fleischner criteria recommendations for follow-up of incidental CT n odules (Felicity Gallegos, Guidelines for management of small pulmonary nodules detected on CT scans: A sta tement from the Fleischner Society, Radiology 237: [phone].) SOLID NODULES Solitary nodule size: <6 mm * Low risk patients: no follow-up needed * high risk patients: optional CT at 12 months Solitary nodule size: 6-8 mm * Low risk patients: follow-up at 6-12 months, then consider further follow-up at 18-24 months * high risk patients: initial follow-up CT at 6-12 months and then at 18-24 months if no change Solitary nodule size: >8 mm * either low or high risk patients - consider follow-up CT at 3 months, and/or CT-PET, and/or biopsy Multiple nodules size: <6 mm * Low risk patients: no routine follow-up * high risk patients: optional CT at 12 months Multiple nodules size: 6-8 mm * Low risk patients: follow-up at 3-6 months, then consider further follow-up at 18-24 months * high risk patients: follow-up at 3-6 months, then at 18-24 months if no change Multiple nodules size: >8 mm * Low risk patients: follow-up at 3-6 months, then consider further follow-up at 18-24 months * high risk patients: follow-up at 3-6 months, then at 18-24 months if no change Note: newly detected indeterminate nodule in persons 35 years of age or older. * Low risk patients: minimal or absent history of smoking and/or other known risk factors * high risk patients: history of smoking or of other known risk factors (e.g. first degree relative with lung cancer, or exposure to asbestos, radon, uranium) * if a nodule up to 8 mm is partly solid or is ground glass further follow-up is required after 24 m onths to exclude possible slow growing adenocarcinoma (PRESTON) SUBSOLID NODULES Solitary pure ground-glass nodule * nodule size <6 mm - no CT follow-up required * nodule size >=6 mm - follow-up CT at 6-12 months, then every 2 years until 5 years Solitary part-solid nodule * nodule size <6 mm - no CT follow-up required * nodule size >=6 mm - follow-up CT at 3-6 months. If unchanged, and solid component remains <6 mm, then annual follow-up for 5 years Multiple subsolid nodules * nodule size <6 mm - follow-up CT at 3-6 months, consider further follow-up at 2 and 4 years if sta ble * nodule size >=6 mm - follow-up CT at 3-6 months, subsequent management based on the most suspiciou s nodule(s) ACT 112: Negative or not required by law. Electronically signed by: Delon Coombs M.D. 07/30/2020 5:47 PM
[2020-07-30] MEDS ORDERED: AZITHROMYCIN 250 MG TAB PO ONE (18:00)
--- NOTE | 2020-07-30 18:47 | Billing Data ---
Date of Service July 30, 2020 Coding Level of Care Code 10427 Subseq Obs Care Lvl 3
[2020-07-30] MEDS: QUEtiapine FUMARATE 200 MG TAB PO SCH (20:05)
[2020-07-30] MEDS: MIRTAZAPINE TAB 15 MG TAB PO SCH (20:05)
[2020-07-30] MEDS: MONTELUKAST SODIUM 10 MG TABLET PO SCH (20:05)
--- NOTE | 2020-07-31 05:47 | Electrocardiogram Report ---
Test Reason : Blood Pressure : / mmHG Vent. Rate : 090 BPM Atrial Rate : 090 BPM P-R Int : 162 ms QRS Dur : 094 ms QT Int : 378 ms P-R-T Axes : 046 032 037 degrees QTc Int : 462 ms Normal sinus rhythm Normal ECG When compared with ECG of 24-MAR-2017 20:34, No significant change was found Confirmed by Nnamdi Pleitez ([id number]) on 07/31/2020 5:47:15 AM Referred By: Marilu Kunz Confirmed By:Nnamdi Pleitez
[2020-07-31 06:30] LABS: Basophils # (auto) 0.04 K/uL (0-0.2); Basophils % (auto) 0.6 %; Eosinophils % (auto) 6.9 %; Hematocrit (blood only) 40.4 % (37-47); Immature Granulocytes # (auto) 0.04 K/uL (0.00-0.02); Immature Granulocytes % (auto) 0.6 %; Lymphocytes # (auto) 2.29 K/uL (1.2-3.4); Lymphocytes % (auto) 31.8 %; Mean Corpuscular Hemoglobin 29.7 pg (25-34); Mean Corpuscular Hgb Conc 32.2 g/dL (32-36); Mean Corpuscular Volume 92.2 fL (80-100); Mean Platelet Volume 9.5 fL (7.4-10.4); Monocytes # (auto) 0.35 K/uL (0.11-0.59); Monocytes % (auto) 4.9 %; Neutrophils # (auto) 3.99 K/uL (1.4-6.5); Neutrophils % (auto) 55.2 %; Platelet Count 282 K/uL (130-400); RDW Standard Deviation 47.6 fL (36.4-46.3); Red Blood Count 4.38 M/uL (4.2-5.4); White Blood Count 7.21 K/uL (4.8-10.8)
[2020-07-31 07:00] LABS: BUN Creatinine Ratio 11.9 (10-20); Calcium 8.5 mg/dl (8.5-10.1); Creatinine Clr Calc Pharmacy 64.6 ml/min; Est GFR (African American) 58.6; Est GFR (Non-African American) 50.5; Potassium 3.3 mmol/L (3.5-5.1)
[2020-07-31] MEDS: TOPIRAMATE 100 MG TAB PO SCH (07:53)
[2020-07-31] MEDS: CITALOPRAM 40 MG TAB PO SCH (07:53)
[2020-07-31] MEDS: PANTOprazole 40 MG TAB PO SCH (07:53)
[2020-07-31] MEDS: CITALOPRAM 20 MG TAB PO SCH (07:53)
[2020-07-31] MEDS: UMECLIDINIUM BROMIDE 62.5MCG/BLISTER 7 PUFFS/INHALER INH SCH (07:54)
[2020-07-31] MEDS: FLUTICASONE/VILANTEROL 100/25MCG 14 PUFFS/INHALER INH SCH (07:54)
[2020-07-31] MEDS: ATORVASTATIN 40 MG TAB PO SCH (07:55)
[2020-07-31] MEDS: LOSARTAN POTASSIUM 25 MG TAB PO SCH (07:55)
[2020-07-31] MEDS: FOLIC ACID 1 MG TAB PO SCH (07:55)
[2020-07-31] MEDS: POLYETHYLENE (MIRALAX) 17 GM PACK PO SCH (07:57)
[2020-07-31] MEDS: ALPRAZolam 0.5 MG TABLET PO SCH ×3 (08:03→16:07)
[2020-07-31] MEDS: POTASSIUM CHLORIDE CRTAB 20 MEQ TABCR PO SCH ×3 (08:46→12:16)
[2020-07-31] MEDS ORDERED: AZITHROMYCIN 250 MG TAB PO SCH (09:00)
[2020-07-31] MEDS ORDERED: ENOXAPARIN INJ 40 MG/0.4 ML SYR SQ SCH (09:00)
--- NOTE | 2020-07-31 14:08 | Discharge Summary ---
Date of Service July 31, 2020 Admission HPI Per Admitting Provider 55 yo F with hx HTn, HLD, COPD, Bipolar 1 presenting to ER for 3 days of chest pain that she initially thought was indigestion. This morning was concerned when the pain felt like a pressure, called her doctor for a same day appointment. She was evaluated at the physician's office and sent to the ER for workup. She has not tried anything to improve the pain. She does get short of breath and has chest pain when exerting herself. She is unable to walk up the 21 steps to her apartment without stopping to recover at step 10. She has new symptoms of SOB when laying down for the past 3 days, which is improved by sitting up. She denies any peripheral edema, worsened or new cough, trouble breathing at rest. She does attest that she likes to eat salty foods and "probably overdid it" on (4 days ago) when she put salt on her pizza and drank 4 alcoholic beverages in addition to 5 shots. No significant intervention in ER. Patient was uncomfortable with the option of outpatient cardiac followup, particularly after having one episode of diarrhea in the ER. Admitted for observation and cardiac workup. Admission Exam Per Admitting Provider Constitutional: obese, in no apparent distress, sitting up comfortably in bed. Eyes: EOMI, pupils equal and reactive bilaterally, no scleral icterus Cardiac: RRR, no murmurs, gallops or rubs. Normal S1, S2 Pulm: CTA BL, no wheezes, rhonchi, crackles or rubs, poor inspiratory effort, difficult to auscultate bases of lungs bilaterally. no extra work of breathing on room air. Abd: soft, nontender, nondistended, normal bowel sounds, no rebound or guarding Extremities: 2+ peripheral pulses, no pedal edema Neuro: no focal deficits, moving all 4 limbs, A&Ox3 Principal Diagnosis Acute on chronic COPD exacerbation complicated by chest pain concerning for ACS, history of substance abuse, bipolar type 1, and constipation Discharge Exam General: No acute distress HEENT: Normocephalic atraumatic Neck: Normal vision inspection, trachea midline Cardiac: Regular rate and rhythm I did not appreciate any murmurs rubs or gallops, normal S1, normal S2, negative pedal edema, negative calf tenderness Respiratory: Clear to auscultation bilaterally with symmetrical chest expansion I did not appreciate significant wheezes, rales, rhonchi, normal inspiratory effort GI: Soft, nontender, nondistended, hypoactive bowel sounds MSK: Moves all extremities Neuro: Alert and oriented x4 Discharge Data Allergies Allergy/AdvReac Type Severity Reaction Status Date / Time aspirin Allergy Unknown UNKNOWN Unverified 07/29/20 18:09 bee venom protein (honey bee) Allergy Unknown UNKNOWN Unverified 07/29/20 18:09 Cipro Allergy Unknown UNKNOWN Unverified 03/24/17 21:04 ciprofloxacin [Cipro] Allergy Unknown UNKNOWN Unverified 07/29/20 18:09 propoxyphene Allergy Unknown UNKNOWN Unverified 07/29/20 18:10 Consultations 07/29/20 17:22 ED Decision to Admit Stat Ordered Studies 07/30/20 16:52 CT angio chest PE protocol Urgent Hospital Course (1) Chest pain on exertion: 55 yo F with hx COPD, HTN, HLD, Bipolar 1 who presented to the ER for multiple days of chest pain, admitted for observation and cardiac workup. #Chest Pain Patient presenting with a chief complaint of chest pain, EKG on admission and since then has been normal, she had negative troponins x3, chest x-ray without significant signs of cardiomegaly, pleural effusion, pulmonary edema. Dobutamine stress test was negative, lipid panel was unremarkable with the exception of redemonstration of hyperlipidemia, A1c was 6. Negative ACS/cardiac work-up. Patient did not have additional chest pain throughout the duration of her admission. -EKG with chest pain #Acute on chronic COPD exacerbation Patient with pulmonary function test demonstrating COPD, most recent PFTs were a year ago, patient is scheduled to follow-up PFTs as an outpatient. CTA obtained on 07/30 was concerning for infection consistent with COPD exacerbation. Patient was started on azithromycin received 2 doses while hospitalized and will be discharged to complete 3 more days of antibiotic therapy with azithromycin and 5 days of prednisone therapy with a 50 mg burst pack - continue spiriva, singulair, symbicort - duoneb PRN #SOB Per patient history, shortness of breath has been increasing progressively over the past 2 months, with an acute increase in symptomology over the last 2 weeks or so. Given negative cardiac work-up, and no history of respiratory pathogens. It was prudent to exclude a pulmonary embolism to that effect will a CTA was obtained and demonstrated to be negative, however concerning for an infectious process. See above -Inhalers as above #Alcohol Abuse Patient describes her self is recovering alcoholic, patient endorses shaking when she stops using alcohol, has never had a seizure before. Per patient history she had 10 alcoholic beverages the other evening, it is unclear whether she drinks on a daily basis or not as her story changed multiple times. To that effect the patient been placed on AWSS protocol. Additionally folate and B12 labs were obtained and were within normal limits. Patient did not have any significant alcohol withdrawal symptoms while hospitalized #Constipation Prior to arrival the patient has not had a bowel movement in greater than a week. Since arrival she had 1 extremely loose bowel movement and one small well-formed bowel movement. Abdominal flatplate obtained this afternoon is suggestive of an element of constipation. To that effect have provided twice daily scheduled MiraLAX. Recommend patient continue MiraLAX therapy as an outpatient. I did she monitor her bowels, should she go 2 days without a bowel movement she should consider resuming MiraLAX therapy. #Electrolyte disturbances -Repleted as indicated #HLD - continued statin as above - a1c 6 -Triglycerides 110, cholesterol 230, LDL 161, VLDL 22, HDL 47 #HTN - continued losartan 25 mg daily #Anxiety - continued home citalopram - continued alprazolam 1 mg PO QID PRN #Bipolar Type 1 - continued mirtazipine 30 mg PO HS, seroquel 400 mg PO HS, topiramate 100 mg PO BID, zolpidem 10 mg PO HS PRN FENa:Heart healthy, pantoprazole daily Code Status:Full DVT PPX: lovenox PT/OT: Not Indicated Dispo: Home Rafael Mcmahan MD PGY 2, [facility] This chart was completed utilizing [employer] voice recognition software. Grammatical errors, random word insertions, pronoun errors, and in complete sentences are an occasional consequence of the system. Any questions or concerns about the content, text, or information contained within the body of this dictation should be addressed directly to the physician for clarification. (2) SOB (shortness of breath) on exertion: - likely secondary to chest pain with exertion + underlying COPD - continue spiriva, singulair, symbicort - duoneb PRN (3) HLD (hyperlipidemia): - continue statin as above - lipid panel pending - a1c pending (4) HTN (hypertension): - continue losartan 25 mg daily (5) COPD (chronic obstructive pulmonary disease): as above for SOB (6) Anxiety: - continue home citalopram - continue alprazolam 1 mg PO QID PRN (7) Bipolar 1 disorder: - continue mirtazipine 30 mg PO HS, seroquel 400 mg PO HS, topiramate 100 mg PO BID, zolpidem 10 mg PO HS PRN (8) Alcohol abuse: - Patient describes herself as a recovering alcoholic - drinks a fifth of alcohol every other weekend - may benefit from discussion of alcohol cessation in the context of chest pain/worsening heart disease (9) DVT prophylaxis: FEN/GI: Heart healthy, pantoprazole daily DVT Prophylaxis: lovenox Code Status: Full Code Dispo: Med surg with tele, home after workup Total Time Total Time Spent Total Time Spent (In Minutes): <30 Discharge Plan Discharge Items Patient Disposition: Home - Self-Care Reason For Visit: CHEST PAIN Discharge Diagnosis: Acute on chronic COPD exacerbation complicated by chest pain concerning for ACS, history of substance abuse, bipolar type 1, and constipation Activity: Resume your previous activity Non-emergency contact: Primary Care Provider Call non-emergency contact if: you have any medication questions, your pain is worsening and your temperature is above 101.5 Follow-up/Referrals: Marilu Kunz PA-C [Primary Care Provider] - 08/07/20 2:30 pm (If you need to change this appointment, please call [phone].) Diet: Regular Addtl Attending Provider Instructions: Care instructions: You were admitted to [facility] for treatment of chest pain concerning for cardiac origin you were subsequently diagnosed with acute exacerbation of your chronic obstructive pulmonary disease. You were given an extensive work-up for cardiac origin all of which proved to be negative. A CT scan was obtained of your lungs demonstrating an area concerning for infection this with your respiratory symptoms collectively as recently as a a COPD exacerbation. To treat your symptoms with we started you on a medication called azithromycin. While hospitalized you received 2 doses, you should take a total of 3 more doses for total of 5 days of antibiotic therapy. Additionally will provide you with a dose of burst prednisone 50 mg to be taken once per day for 5 days. These medications have been called into the [facility] on [facility] in [place]. Given that your symptoms are quite significant and recommend follow-up and close contact with your primary care provider within a week of discharge. A discharge summary will be sent to your primary care physician to ensure continuity of care. Please bring this discharge summary with you to your next office appointment so that your provider can review it at that time. Follow-up appointments: - Keep all your follow-up appointments as already scheduled. If you cannot make an appointment, notify your provider. - Please call to request a follow-up appointment with your primary care physician within one week of discharge. Please let us know if you are unable to obtain an appointment Medications: - Your medication list has been reviewed and reconciled upon discharge to ensure accuracy and continuity of care. - You are provided with a list of all your current medications at this time. Please review this list closely and make note of any changes. - Please take all of your medications exactly as prescribed. - Tell your primary care provider if you cannot afford your medications. - Call your primary care provider if you are having any side effects or any other problems. - Call your primary care provider before taking any over the counter medications or supplements, including herbals and vitamins, because some of these may interact with your current medications and/or make your symptoms worse. Symptoms: Please call your primary care provider for symptoms including, but not limited to: fevers (temperatures greater than 100.4), chills, intractable nausea or vomiting, diarrhea, rash, shortness of breath, bleeding, pain, or if you experience any worsening of the symptoms that brought you to the hospital. For EMERGENCY and VERY SERIOUS health-related issues, such as chest pain, shortness of breath, or sudden onset of the symptoms that brought you to the hospital, you may need to call 911 or go directly to the Emergency Room It has been our privilege to take care of you during your hospital stay. And Above All Else Feel Better! Best Wishes, Rafael Mcmahan MD PGY2 Resident, Family & Community Medicine [facility] Residency at [facility] - [address], [address] MC: [address] [place] [address], [place] [address] Pending Studies at Discharge: No Stand-Alone Forms: My [facility], Smoking Cessation Medications and DC Order Prescriptions: New azithromycin 250 mg tablet 250 mg PO DAILY 3 Days Qty: 3 RF: 0 prednisone 50 mg tablet 50 mg PO DAILY 5 Days Qty: 5 RF: 0 Continued losartan 25 mg Tablet 25 mg PO DAILY RF: 0 pantoprazole [Protonix] 20 mg Tablet,Delayed Release (Dr/Ec) 20 mg PO DAILY RF: 0 atorvastatin 40 mg Tablet 40 mg PO DAILY RF: 0 albuterol sulfate 90 mcg/actuation Hfa Aerosol Inhaler 2 puff INHALATION QID PRN (Reason: Shortness Of Breath Or Wheezing) RF: 0 epinephrine 0.3 mg/0.3 mL Auto-Injector 0.3 mg IM Q4H PRN (Reason: Allergic Reaction) RF: 0 montelukast [Singulair] 10 mg Tablet 10 mg PO PM RF: 0 budesonide-formoterol [Symbicort] 80-4.5 mcg/actuation Hfa Aerosol Inhaler 2 puff INHALATION BID RF: 0 Spiriva with HandiHaler 18 mcg Capsule, W/Inhalation Device 1 cap INHALATION DAILY RF: 0 mirtazapine 30 mg Tablet 30 mg PO HS RF: 0 citalopram 10 mg Tablet 10 mg PO QAM RF: 0 alprazolam 1 mg Tablet 1 mg PO QID PRN (Reason: Anxiety) RF: 0 topiramate 100 mg Tablet 100 mg PO BID RF: 0 zolpidem 10 mg Tablet 10 mg PO HS PRN (Reason: Insomnia) RF: 0 quetiapine [Seroquel] 400 mg Tablet 400 mg PO QPM RF: 0 citalopram 40 mg Tablet 40 mg PO QAM RF: 0 Discharge Orders: Discharge Order (Routine); Ordered 07/31/20 Ordered By: Rafael Roberts/Other Patient Handouts: 5 Steps for Eating Healthier, A1C Admission Data Admit Date/Time: 07/29/20 17:59 Attending Provider: Carlton Giordano Admit Provider: Sylwia Toledo Primary Care Provider: Marilu Kunz Other Providers: Raphael Benito Supervising Physician Co-Signing Physician Notes I personally examined the patient and verified all davis points of history and exam, discussed case, and agree with decision making with Dr Mcmahan. Feeling on the better side of the same. Does have a little bit of cough and congestion. No new symptoms. Vitals noted, in general she is awake and alert pleasant no distress. HEENT normocephalic atraumatic mucous membranes moist. Breathing unlabored no accessory muscle use good effort. Skin shows no rashes no pallor or icterus. Neuro shows no focal deficits. Dyspnea on exertionextensive work-up is essentially ruled out severe life- threatening pathology. Her cardiac work-up shows no AZ, no evidence for unstable angina/coronary ischemia, and no nidus for CHF. Her pulmonary work-up shows no pulmonary parenchymal catastrophes, no PEs, and her vitals have remained quite stable. In this respect while her CT was not overwhelming as far as infection, the fact that it did show inflammatory changes and an infection would have an abrupt onset like her symptoms, does make this our working diagnosis. In that respect we will send her on a course of azithromycin and prednisone. I discussed with her openly and plainly that this is not an abundantly clear diagnosisthat the onset of her symptoms and the dyspnea on exertion would fit, but the general lack of other infectious symptoms does leave me suspicious, but with that said we have essentially ruled out serious pathology, and very reasonable next step would be to treat for the infection that the CT suggests, and then have close follow-up from there. Given that she actually has follow-up with her pulmonary physician in August this is about perfect timing. She is comfortable with the plan and we will discharge her home on Zithromax and prednisone. ConstipationMiraLAX DVT prophylaxis Lovenox Otherwise as above, stable for home Resident Activity Tracking Resident Involvement: Resident Care Provided Care Provided: Adult [facility] Medicine
--- NOTE | 2020-07-31 15:59 | Billing Data ---
Date of Service July 31, 2020 Coding Level of Care Code 48040 OBS Care - Discharge
== END 2020-07-31 16:48 | disposition home or self-care (01) ==
LOC: 2N 16:05 → ED 16:05 → SUATTDRO 17:59 → 2N 19:18

== ENCOUNTER 2021-08-22 09:50 | Inpatient (IN) ==
--- NOTE | 2021-08-22 10:01 | Emergency Department Note ---
Impression & Plan Polyarticular joint involvement, Rash and nonspecific skin eruption, HLD (hyperlipidemia), COPD (chronic obstructive pulmonary disease) ED Provider Note NAME: JUDITH HUNT AGE: 56 SEX: F : 1965 ARRIVES VIA: Walk-In INFORMANT: Patient, ED PROVIDER(S): Abdoulaye Rowell MD Chief Complaint: Leg pain, inability to walk, rash HPI: Patient presents with the above complaints. The patient states that she had some symptoms that began yesterday and noted that she had some pain and swelling to the right ankle and foot with associated left knee swelling and left elbow swelling. The patient states she was seen at [facility] yesterday diagnosed with cellulitis and subsequently discharged. The patient wa s told return if she developed any worsening or concerning symptoms and thus presented here to [facility]. Patient states that she was having difficulty with walking secondary to pain. Patient does feel short of breath and has a prior history of smoking but is not done so in some time. Patient is on vaccinated for COVID has had a productive cough. Patient denies any history of DVT or PE. No recent surgeries. The patient did not chicken picker her prescriptions from her [place] emergency department visit. Patient denies any known heart history. Patient was also concerned that she noticed a rash over her bilateral lower extremities. Patient did not take anything for pain at home. The patient denies any known allergies or changes in medications other than the most recent medication she received in the emergency department to clear fill but is unsure as to what that medication was. Patient does have a known allergy to Cipro, aspirin, and bee stings. ROS: See HPI for pertinent positives and negatives. A total of 10 systems were reviewed and otherwise negative. Past medical history: See below Surgical history: See below Social history: See below Physical Exam: GENERAL: NAD, wearing a mask, non-toxic. EYE EXAM: Normal conjunctiva. PERRL, no anisocoria and EOM's grossly intact w/o pain. OROPHARYNX: Moist mucus membranes. Grossly normal dentition. NECK: Supple, no nuchal rigidity, no adenopathy, non-tender. No signs of meningismus. LUNGS: Clear to auscultation. Normal chest wall mechanics. HEART: NSR, no MRG. ABDOMEN: Abdomen soft, non-tender, normo-active bowel sounds, no masses, no rebound or guarding. BACK: No CVA TTP. SKIN: Nonblanching nonraised nonpruritic well-circumscribed circular rash anywhere from 0.25 to 1 cm over the bilateral lower extremities, nontender. UPPER EXTREMITIES: Upper extremities are grossly normal. LOWER EXTREMITIES: Mild swelling to the right ankle with associated redness over the medial aspect of the distal right foot and right first digit, no obvious crepitus or drainage. Mild TTP. NEURO EXAM: A&O x3, cranial nerves II-XII grossly intact, normal speech, moves all 4 extremities on command w/o issue. Differential diagnoses: Cellulitis, abscess, MRSA infection, DVT, necrotizing fasciitis, dermatitis, drug eruption, allergic reaction, as well as other pathologies. Course: Patient was seen and evaluated the bedside. Full history physical exam was performed. EKG interpreted by me Normal sinus rhythm, rate of 92, normal MI and QRS, normal axis, and no obvious ST changes. Imaging Studies: See Below Cardiac monitoring: An order was placed for continuous cardiac monitoring. The monitor shows a rate of 88 with sinus rhythm. MDM: Patient was seen due to concern for some polyarticular pain and associated rash. Blood work was obtained along with an EKG troponin chest x-ray and D-dimer as the patient also had complained of some shortness of breath. Patient is a former smoker. Patient was treated with antibiotics due to concern for cellulitis of the right foot. Blood work is grossly unremarkable she does have mild elevations in the inflammatory markers but white count is normal. Patient's D-dimer was elevated so CT angiography was performed. No obvious findings of any PE at this time. Did try to ambulate the patient but she was unable to do so well. I did speak the on-call hospitalist KILO Lares and the patient was admitted by Dr. Ray. Past Med/Surg History Medical History (Updated 08/23/21 @ 14:08 by Abdoulaye Rowell MD) Anxiety Asthma Bipolar 1 disorder Chest pain COPD (chronic obstructive pulmonary disease) HLD (hyperlipidemia) HTN (hypertension) Surgical History No pertinent past surgical history Family History Grandmother Myocardial infarction Other Hypertension Social History Smoking Status: Former smoker Number of Years Since Quit: 4; Second Hand Exposure: No; Do You Dip or Chew Tobacco: No; Tobacco Cessation Education Requested by Patient: No Hx Alcohol Use: Yes Alcohol type: hard liquor Hx Substance Use: No Preferred Language: Belarusian 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 Ability: Effective 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 Beliefs That Will Affect Care: None Current Living Situation: Significant Other Other Information That Helps Us Care for You: No Feels Safe at Home: Yes Assistive Devices: None Allergies Allergies Allergy/AdvReac Type Severity Reaction Status Date / Time aspirin Allergy Unknown UNKNOWN Unverified 08/22/21 12:23 bee venom protein (honey bee) Allergy Unknown UNKNOWN Unverified 08/22/21 12:23 Cipro Allergy Unknown UNKNOWN Unverified 03/24/17 21:04 ciprofloxacin [Cipro] Allergy Unknown UNKNOWN Unverified 08/22/21 12:23 propoxyphene Allergy Unknown UNKNOWN Unverified 08/22/21 12:23 Home Meds Home Medications Medication Instructions Recorded Confirmed albuterol sulfate 90 mcg/actuation 2 puff INHALATION QID PRN 07/29/20 08/22/21 aerosol inhaler alprazolam 1 mg tablet 1 mg PO QID PRN 07/29/20 08/22/21 atorvastatin 40 mg tablet 40 mg PO DAILY 07/29/20 08/22/21 citalopram 10 mg tablet 10 mg PO QAM 07/29/20 08/22/21 citalopram 40 mg tablet 40 mg PO QAM 07/29/20 08/22/21 epinephrine 0.3 mg/0.3 mL 0.3 mg IM Q4H PRN 07/29/20 08/22/21 injection, auto-injector losartan 25 mg tablet 25 mg PO DAILY 07/29/20 08/22/21 mirtazapine 30 mg tablet 30 mg PO HS 07/29/20 08/22/21 montelukast 10 mg tablet 10 mg PO PM 07/29/20 08/22/21 (Singulair) pantoprazole 20 mg tablet,delayed 20 mg PO DAILY 07/29/20 08/22/21 release (Protonix) quetiapine 400 mg tablet (Seroquel) 400 mg PO QPM 07/29/20 08/22/21 topiramate 100 mg tablet 100 mg PO QAM 07/29/20 08/22/21 zolpidem 10 mg tablet 10 mg PO HS PRN 07/29/20 08/22/21 ergocalciferol (vitamin D2) 1,250 50,000 unit PO WK 08/22/21 08/22/21 mcg (50,000 unit) capsule fluticasone fur. 200 mcg-umeclid 1 inh INHALATION DAILY 08/22/21 08/22/21 62.5 mcg-vilant 25 mcg inhalat.powder (Trelegy Ellipta) folic acid 800 mcg tablet 800 mg PO DIRECTED 08/22/21 08/22/21 mepolizumab 100 mg/mL subcutaneous 0 mg SUBCUT MONTHLY 08/22/21 08/22/21 auto-injector (Nucala) thiamine mononitrate (vit B1) 100 100 mg PO BID 08/22/21 08/22/21 mg tablet topiramate 100 mg tablet 150 mg PO QPM 08/22/21 08/22/21 Results & Data (ED) Vital Signs Vital Signs - 24 hr 08/22/21 15:00 Pulse Rate [Left Radial] 73 Pulse Rhythm [Left Radial] Regular Pulse Strength [Left Radial] Normal Respiratory Rate 20 Respiratory Effort / Characteristics Non-Labored Respiratory Depth Normal Respiratory Pattern Regular Blood Pressure [Left Arm] 131/78 Blood Pressure Mean [Left Arm] 95 Blood Pressure Position [Left Arm] Lying Pulse Oximetry 98 Oxygen Delivery Method Room Air Home Medications Current Medication List: was personally reviewed by me Laboratory Data Attestation: I reviewed the patient's lab results. Result diagrams: 08/23/21 05:48 08/23/21 05:48 Lab Results 08/22/21 08/22/21 08/22/21 Range/Units 10:35 10:35 10:35 WBC 8.21 (4.8-10.8) K/uL RBC 4.59 (4.2-5.4) M/uL Hgb 13.3 (12.0-16.0) g/dL Hct 42.3 (37-47) % MCV 92.2 (80-100) fL MCH 29.0 (25-34) pg MCHC 31.4 L (32-36) g/dL RDW Std Deviation 49.6 H (36.4-46.3) fL RDW Coeff of Allison 14.5 (11.5-14.5) % Plt Count 303 (130-400) K/uL MPV 10.2 (7.4-10.4) fL Immature Gran % (Auto) 0.5 % Neut % (Auto) 58.5 % Lymph % (Auto) 33.0 % [place] % (Auto) 6.7 % Eos % (Auto) 0.9 % Baso % (Auto) 0.4 % Neut # (Auto) 4.81 (1.4-6.5) K/uL Lymph # (Auto) 2.71 (1.2-3.4) K/uL [place] # (Auto) 0.55 (0.11-0.59) K/uL Eos # (Auto) 0.07 (0-0.5) K/uL Baso # (Auto) 0.03 (0-0.2) K/uL Immature Gran # (Auto) 0.04 H (0.00-0.02) K/uL ESR 56 H (0-30) mm/hr PT (9.0-12.0) Seconds INR (0.9-1.1) D-Dimer (0-500) ug/L FEU Sodium 139 (136-145) mmol/L Potassium 3.8 (3.5-5.1) mmol/L Chloride 109 H (98-107) mmol/L Carbon Dioxide 22 (21-32) mmol/L Anion Gap 8 (3-11) BUN 10 (6-23) mg/dl Creatinine 0.83 (0.6-1.2) mg/dl Est Cr Clr Drug Dosing 89.1 ml/min Est GFR ( Amer) 92.7 ml/min Est GFR (Non-Af Amer) 79.9 ml/min BUN/Creatinine Ratio 12.0 (10-20) Glucose 96 (70-99(Fasting)) mg/dl Uric Acid 4.3 (2.6-7.2) mg/dl Calcium 9.0 (8.5-10.1) mg/dl Magnesium 2.2 (1.7-2.4) mg/dl Total Bilirubin 0.7 (0.2-1.0) mg/dl AST 34 (13-39) U/L ALT 39 (7-52) U/L Alkaline Phosphatase 91 (34-104) U/L Troponin I < 0.03 (0-0.04) ng/ml C-Reactive Protein 3.39 H (0-0.5) mg/dl Total Protein 7.9 (6.0-8.3) gm/dl Albumin 4.0 (3.4-5.0) gm/dl Globulin 3.9 (2.5-4.0) gm/dl Albumin/Globulin Ratio 1.0 (0.9-2) Procalcitonin (0-0.5) ng/ml TSH (0.300-4.500) uIu/ml IgG (635-1741) mg/dl IgA (70-400) mg/dl IgM (45-281) mg/dl Lyme Disease IgG Ab (Negative) Lyme Disease IgM Ab (Negative) Hepatitis C Antibody (Neg) SARS-CoV-2, RNA, NAAT (NEGATIVE) 08/22/21 08/22/21 08/22/21 Range/Units 10:35 10:35 10:35 WBC (4.8-10.8) K/uL RBC (4.2-5.4) M/uL Hgb (12.0-16.0) g/dL Hct (37-47) % MCV (80-100) fL MCH (25-34) pg MCHC (32-36) g/dL RDW Std Deviation (36.4-46.3) fL RDW Coeff of Allison (11.5-14.5) % Plt Count (130-400) K/uL MPV (7.4-10.4) fL Immature Gran % (Auto) % Neut % (Auto) % Lymph % (Auto) % [place] % (Auto) % Eos % (Auto) % Baso % (Auto) % Neut # (Auto) (1.4-6.5) K/uL Lymph # (Auto) (1.2-3.4) K/uL [place] # (Auto) (0.11-0.59) K/uL Eos # (Auto) (0-0.5) K/uL Baso # (Auto) (0-0.2) K/uL Immature Gran # (Auto) (0.00-0.02) K/uL ESR (0-30) mm/hr PT (9.0-12.0) Seconds INR (0.9-1.1) D-Dimer (0-500) ug/L FEU Sodium (136-145) mmol/L Potassium (3.5-5.1) mmol/L Chloride (98-107) mmol/L Carbon Dioxide (21-32) mmol/L Anion Gap (3-11) BUN (6-23) mg/dl Creatinine (0.6-1.2) mg/dl Est Cr Clr Drug Dosing ml/min Est GFR ( Amer) ml/min Est GFR (Non-Af Amer) ml/min BUN/Creatinine Ratio (10-20) Glucose (70-99(Fasting)) mg/dl Uric Acid (2.6-7.2) mg/dl Calcium (8.5-10.1) mg/dl Magnesium (1.7-2.4) mg/dl Total Bilirubin (0.2-1.0) mg/dl AST (13-39) U/L ALT (7-52) U/L Alkaline Phosphatase (34-104) U/L Troponin I (0-0.04) ng/ml C-Reactive Protein (0-0.5) mg/dl Total Protein (6.0-8.3) gm/dl Albumin (3.4-5.0) gm/dl Globulin (2.5-4.0) gm/dl Albumin/Globulin Ratio (0.9-2) Procalcitonin < 0.05 (0-0.5) ng/ml TSH 1.496 (0.300-4.500) uIu/ml IgG (635-1741) mg/dl IgA (70-400) mg/dl IgM (45-281) mg/dl Lyme Disease IgG Ab Negative (Negative) Lyme Disease IgM Ab Equivocal A (Negative) Hepatitis C Antibody Neg (Neg) SARS-CoV-2, RNA, NAAT (NEGATIVE) 08/22/21 08/22/21 08/22/21 Range/Units 10:35 10:40 10:59 WBC (4.8-10.8) K/uL RBC (4.2-5.4) M/uL Hgb (12.0-16.0) g/dL Hct (37-47) % MCV (80-100) fL MCH (25-34) pg MCHC (32-36) g/dL RDW Std Deviation (36.4-46.3) fL RDW Coeff of Allison (11.5-14.5) % Plt Count (130-400) K/uL MPV (7.4-10.4) fL Immature Gran % (Auto) % Neut % (Auto) % Lymph % (Auto) % [place] % (Auto) % Eos % (Auto) % Baso % (Auto) % Neut # (Auto) (1.4-6.5) K/uL Lymph # (Auto) (1.2-3.4) K/uL [place] # (Auto) (0.11-0.59) K/uL Eos # (Auto) (0-0.5) K/uL Baso # (Auto) (0-0.2) K/uL Immature Gran # (Auto) (0.00-0.02) K/uL ESR (0-30) mm/hr PT 11.0 (9.0-12.0) Seconds INR 1.0 (0.9-1.1) D-Dimer 6350 H* (0-500) ug/L FEU Sodium (136-145) mmol/L Potassium (3.5-5.1) mmol/L Chloride (98-107) mmol/L Carbon Dioxide (21-32) mmol/L Anion Gap (3-11) BUN (6-23) mg/dl Creatinine (0.6-1.2) mg/dl Est Cr Clr Drug Dosing ml/min Est GFR ( Amer) ml/min Est GFR (Non-Af Amer) ml/min BUN/Creatinine Ratio (10-20) Glucose (70-99(Fasting)) mg/dl Uric Acid (2.6-7.2) mg/dl Calcium (8.5-10.1) mg/dl Magnesium (1.7-2.4) mg/dl Total Bilirubin (0.2-1.0) mg/dl AST (13-39) U/L ALT (7-52) U/L Alkaline Phosphatase (34-104) U/L Troponin I (0-0.04) ng/ml C-Reactive Protein (0-0.5) mg/dl Total Protein (6.0-8.3) gm/dl Albumin (3.4-5.0) gm/dl Globulin (2.5-4.0) gm/dl Albumin/Globulin Ratio (0.9-2) Procalcitonin (0-0.5) ng/ml TSH (0.300-4.500) uIu/ml IgG 1312.9 (635-1741) mg/dl IgA 641.5 H (70-400) mg/dl IgM 92.1 (45-281) mg/dl Lyme Disease IgG Ab (Negative) Lyme Disease IgM Ab (Negative) Hepatitis C Antibody (Neg) SARS-CoV-2, RNA, NAAT NEGATIVE (NEGATIVE) Administered Medications Acetaminophen (Acetaminophen 325 Mg Tab) 650 mg PO Q4H PRN PRN Reason: pain/fever Stop: 09/21/21 18:42 Last Admin: 08/22/21 19:49 Dose: 650 mg Documented by: [id number] Alprazolam (Alprazolam 0.5 Mg Tablet) 1 mg PO QID PRN PRN Reason: Anxiety Stop: 09/21/21 18:42 Last Admin: 08/23/21 12:13 Dose: 1 mg Documented by: [id number] Atorvastatin Calcium (Atorvastatin 40 Mg Tab) 40 mg PO DAILY [facility] Stop: 09/22/21 08:59 Last Admin: 08/23/21 07:49 Dose: 40 mg Documented by: [id number] Citalopram Hydrobromide (Citalopram 40 Mg Tab) 40 mg PO QAM [facility] Stop: 09/22/21 08:59 Last Admin: 08/23/21 07:50 Dose: 40 mg Documented by: [id number] Citalopram Hydrobromide (Citalopram 20 Mg Tab) 10 mg PO QAM [facility] Stop: 09/22/21 08:59 Last Admin: 08/23/21 07:50 Dose: 10 mg Documented by: [id number] Enoxaparin Sodium (Enoxaparin Inj 40 Mg/0.4 Ml Syr) 40 mg SQ QAM [facility] Stop: 09/22/21 08:59 Last Admin: 08/23/21 07:50 Dose: 40 mg Documented by: [id number] Fluticasone Furoate (Fluticasone Furoate 100mcg 14 Puffs/Inhaler) 1 puffs INH DAILY [facility] Stop: 09/22/21 08:59 Last Admin: 08/23/21 07:50 Dose: 1 puffs Documented by: [id number] Thiamine HCl 100 mg/ Syringe 10 mls @ 2 mls/min IV QAM [facility] Stop: 09/21/21 19:59 Last Admin: 08/23/21 07:50 Dose: 2 mls/min Documented by: [id number] Admin: 08/22/21 20:32 Dose: 2 mls/min Documented by: [id number] Doxycycline Hyclate 100 mg/ (Dextrose) 110 mls @ 50 mls/hr IV Q12 [facility]; Protocol Stop: 09/02/21 11:29 Last Admin: 08/23/21 12:13 Dose: 50 mls/hr Documented by: [id number] Losartan Potassium (Losartan Potassium 25 Mg Tab) 25 mg PO DAILY [facility] Stop: 09/22/21 08:59 Last Admin: 08/23/21 07:49 Dose: 25 mg Documented by: [id number] Mirtazapine (Mirtazapine Tab 15 Mg Tab) 30 mg PO HS [facility] Stop: 09/21/21 20:59 Last Admin: 08/22/21 20:32 Dose: 30 mg Documented by: [id number] Montelukast Sodium (Montelukast Sodium 10 Mg Tablet) 10 mg PO PM [facility] Stop: 09/21/21 20:59 Last Admin: 08/22/21 20:32 Dose: 10 mg Documented by: [id number] Pantoprazole Sodium (Pantoprazole 40 Mg Tab) 40 mg PO DAILY [facility] Stop: 09/22/21 08:59 Last Admin: 08/23/21 07:49 Dose: 40 mg Documented by: [id number] Quetiapine Fumarate (Quetiapine Fumarate 200 Mg Tab) 400 mg PO QPM [facility] Stop: 09/21/21 20:59 Last Admin: 08/22/21 20:33 Dose: 400 mg Documented by: [id number] Topiramate (Topiramate 50 Mg Tab) 150 mg PO QPM [facility] Stop: 09/21/21 20:59 Last Admin: 08/22/21 20:32 Dose: 150 mg Documented by: [id number] Topiramate (Topiramate 100 Mg Tab) 100 mg PO QAM [facility] Stop: 09/22/21 08:59 Last Admin: 08/23/21 07:49 Dose: 100 mg Documented by: [id number] Umeclidinium/Vilanterol (Umeclidinium/Vilanterol 62.5/25mcg 7 Puffs/Inhaler) 1 puffs INH DAILY [facility] Stop: 09/22/21 08:59 Last Admin: 08/23/21 07:49 Dose: 1 puffs Documented by: [id number] Zolpidem Tartrate (Zolpidem Tartrate 10 Mg Tab) 10 mg PO HS PRN PRN Reason: Insomnia Stop: 09/21/21 20:39 Last Admin: 08/22/21 20:50 Dose: 10 mg Documented by: [id number] Discontinued Medications Sodium Chloride (Nss) 500 mls @ 999 mls/hr IV .Q31M [facility] Stop: 08/22/21 11:00 Last Infusion: 08/22/21 11:18 Dose: 0 mls/hr Documented by: [id number] Admin: 08/22/21 10:38 Dose: 999 mls/hr Documented by: [id number] Ceftriaxone Sodium (Rocephin) 2,000 mg in 70 mls @ 140 mls/hr IV NOW STA Stop: 08/22/21 12:59 Last Infusion: 08/22/21 13:55 Dose: 0 mls/hr Documented by: [id number] Admin: 08/22/21 12:47 Dose: 140 mls/hr Documented by: [id number] Ioversol (Optiray 320 125ml) 121 ml IV ONCE ONE Stop: 08/22/21 12:41 Last Admin: 08/22/21 12:40 Dose: 121 ml Documented by: [id number] Lidocaine/Epinephrine (Lidocaine 2%/Epinephrine 1:100,000 20ml) 20 ml INFIL ONE ONE Stop: 08/22/21 19:16 Last Admin: 08/22/21 20:54 Dose: Not Given Documented by: [id number] Methylprednisolone (Methylprednisolone 125 Mg/2 Ml Vial) 60 mg IV NOW STA Stop: 08/22/21 12:36 Last Admin: 08/22/21 12:47 Dose: 60 mg Documented by: [id number] Morphine Sulfate (Morphine Sulfate 4 Mg/Ml 1 Ml Carp\Vial) 4 mg IV NOW STA Stop: 08/22/21 10:25 Last Admin: 08/22/21 10:38 Dose: 4 mg Documented by: [id number] Prednisone (Prednisone 50 Mg Tab) 50 mg PO QAM [facility] Stop: 09/22/21 08:59 Last Admin: 08/23/21 07:49 Dose: 50 mg Documented by: [id number] Imaging Data Radiologist's Impression: Chest X-Ray 08/22/21 10:24 XR chest 1V portable HISTORY: Shortness of breath. COMPARISON: Chest CTA 07/30/2020. FINDINGS: No pneumothorax. No pleural fusions. The cardiac silhouette remains mildly enlarged. No new focal lung consolidations to suggest pneumonia. No evidence for pulmonary edema. IMPRESSION: No significant change compared to the prior study. No acute process. ACT 112: Negative or not required by law. Electronically signed by: Delon Coombs M.D. 08/22/2021 11:29 AM Venous Doppler Study 08/22/21 10:24 BILATERAL LOWER EXTREMITY VENOUS DOPPLER HISTORY: R>L leg swelling/pain, SOB COMPARISON STUDY: None. FINDINGS: There is normal compressibility, flow, and augmentation within the bilateral lower extremity deep venous systems. IMPRESSION: No DVT within the right or left lower extremity. ACT 112: Negative or not required by law. Electronically signed by: Delon Coombs M.D. 08/22/2021 12:17 PM Chest CTA 08/22/21 12:29 CT angio chest PE protocol CT DOSE: 777.36 mGy.cm HISTORY: 56 years-old Female with PE. Acute shortness of breath with chest pain TECHNIQUE: Multiple CTA images of the chest were obtained after the intravenous administration of 121 ml Optiray. Coronal and sagittal MIPS were obtained from the axial data set and were submitted for review. All measurements were obtained according to NASCET criteria. A dose lowering technique was utilized adhering to the principles of ALARA. COMPARISON: CTA chest 07/30/2020 FINDINGS: CTA: Heart is mildly enlarged. No pericardial effusion. No thoracic aortic aneurysm or dissection. Bovine morphology of the thoracic aortic arch with patency of the imaged great vessels. No pulmonary emboli are identified. CT CHEST: No dominant thyroid nodule is seen. No pathologically adenopathy by CT size criteria. Unchanged 4 mm subpleural solid nodule within the superior segment right lower lobe, image 181. Mild bibasilar predominant groundglass densities suggest atelectasis. There is no pneumothorax, pleural effusion or focal airspace consolidation. Hepatomegaly with hepatic steatosis. Mild bronchial wall thickening. The spleen appears enlarged. Cholecystectomy. Unremarkable soft tissues. The osseous structures appear intact. IMPRESSION: 1. Cardiomegaly without acute intrathoracic abnormality. 2. No pulmonary emboli. 3. Bronchial wall thickening redemonstrated which may represent bronchitis versus reactive airway disease. 4. Hepatic steatosis. ACT 112: Negative or not required by law. The above report was generated using voice recognition software. It may contain grammatical, syntax or spelling errors. Electronically signed by: Domingo Cespedes M.D. 08/22/2021 1:06 PM Ankle MRI 08/22/21 14:51 MR ankle RT wo con CLINICAL HISTORY: 56 years-old Female with unable to bear weight, pain with flexion of toes-. Acute pain of the right foot and ankle without known injury COMPARISON: Right foot MRI of same day TECHNIQUE: Multiplanar, multi sequence MRI of the right ankle was performed without contrast. FINDINGS: Mildly motion degraded exam. LATERAL LIGAMENT COMPLEX: Attenuation of the anterior talofibular ligament suggestive of chronic sprain. The calcaneofibular ligament and posterior talofibular ligaments are intact. SYNDESMOTIC LIGAMENTS: The anterior-inferior tibiofibular ligament, interosseous membrane and posterior-inferior tibiofibular ligaments are intact. DELTOID LIGAMENT COMPLEX: The superficial and deep components of the deltoid ligament are intact. ANTERIOR TENDONS: The tibialis anterior, extensor hallucis longus and extensor digitorum longus tendons are normal in position, morphology and signal. LATERAL TENDONS: The peroneus longus tendinous intact. High-grade chronic appearing split tear of the peroneus brevis extends for a length of 3.4 cm within the inframalleolar segment. MEDIAL TENDONS: The posterior tibialis, flexor digitorum longus and flexor hallucis longus tendons are intact. PLANTAR FASCIA: The medial and lateral bundles of the plantar fascia are normal in morphology and signal. There is no evidence of acute plantar fasciitis or tear. No evidence of plantar fascial nodules. ACHILLES TENDON: The Achilles tendon is normal in position, morphology and signal. No associated bursitis. SINUS TARSI: There is normal fat signal within the sinus tarsi. The interosseous and cervical ligaments are normal. The navicular-calcaneal (spring) ligament iswithout acute abnormality. TARSAL TUNNEL: There are no obstructing lesions within the tarsal tunnel. BONE MARROW: Bone marrow is normal in signal without evidence of fracture, marrow contusion or marrow occupying lesion. SOFT TISSUES: There is moderate circumferential subcutaneous edema of the ankle extending into the foot, most pronounced dorsally. No abscess. Intramuscular signal is within normal limits. IMPRESSION: 1. Motion degraded exam. No acute fracture or marrow edema. 2. Moderate diffuse subcutaneous edema. This may represent cellulitis, venous stasis or lymphedema. 3. Chronic appearing high-grade split tear of the inframalleolar segment of the peroneus brevis tendon. ACT 112: Negative or not required by law. The above report was generated using voice recognition software. It may contain grammatical, syntax or spelling errors. Electronically signed by: Domingo Cespedes M.D. 08/22/2021 5:59 PM Foot MRI 08/22/21 14:51 MR foot RT w/o con HISTORY: 56 years-old Female unable to bear weight, pain with flexion acute pa in and swelling of the right foot COMPARISON: None TECHNIQUE: Multiplanar multisequence MRI of the right foot was obtained without the use of IV contrast. FINDINGS: Motion degraded exam. Moderate subcutaneous edema is most pronounced dorsally. No fluid collection to suggest abscess. Bone marrow signal is within normal limits. No acute fracture, dislocation or osseous erosion. The Lisfranc ligament is identified and appears intact. No evidence of perineural fibrosis (Cedeno neuroma). The imaged flexor and extensor tendons appear unremarkable. The plantar plates appear to be within normal limits. Minimal osteoarthritis of the forefoot. IMPRESSION: 1. Moderate subcutaneous edema, most pronounced dorsally. Findings may be secondary to cellulitis, venous stasis or lymphedema. No abscess. 2. No acute fracture or bony erosion. 3. No acute ligamentous or tendinous injury identified. ACT 112: Negative or not required by law. The above report was generated using voice recognition software. It may contain grammatical, syntax or spelling errors. Electronically signed by: Domingo Cespedes M.D. 08/22/2021 5:00 PM Discharge Plan Visit Data Chief Complaint: Swelling/Edema to Extremity Stated Complaint: LEGS SWOLLEN, ELBOW SWOLLEN ED Provider: Abdoulaye Rowell Discharge Problem: Polyarticular joint involvement, Rash and nonspecific skin eruption, HLD (hyperlipidemia), COPD (chronic obstructive pulmonary disease) Patient Disposition: Admitted As Inpatient Discharge Instructions Interventions: ED Discharge Assessment Last Done: 08/22/21 18:03
[2021-08-22] MEDS ORDERED: MoRPHine SULFATE 4 MG/ML 1 ML CARP\\VIAL IV STA (10:24)
[2021-08-22] MEDS ORDERED: SODIUM CHLORIDE 0.9% 500 ML IV SCH (10:30)
[2021-08-22 10:53] LABS: Basophils # (auto) 0.03 K/uL (0-0.2); Basophils % (auto) 0.4 %; Eosinophils # (auto) 0.07 K/uL (0-0.5); Eosinophils % (auto) 0.9 %; Hematocrit (blood only) 42.3 % (37-47); Hemoglobin 13.3 g/dL (12.0-16.0); Immature Granulocytes # (auto) 0.04 K/uL (0.00-0.02); Immature Granulocytes % (auto) 0.5 %; Lymphocytes # (auto) 2.71 K/uL (1.2-3.4); Mean Corpuscular Hgb Conc 31.4 g/dL (32-36); Mean Corpuscular Volume 92.2 fL (80-100); Mean Platelet Volume 10.2 fL (7.4-10.4); Monocytes # (auto) 0.55 K/uL (0.11-0.59); Monocytes % (auto) 6.7 %; Neutrophils # (auto) 4.81 K/uL (1.4-6.5); Neutrophils % (auto) 58.5 %; Platelet Count 303 K/uL (130-400); RDW Coefficient of Variation 14.5 % (11.5-14.5); RDW Standard Deviation 49.6 fL (36.4-46.3); Red Blood Count 4.59 M/uL (4.2-5.4); White Blood Count 8.21 K/uL (4.8-10.8)
--- NOTE | 2021-08-22 11:30 | XRay Report ---
XR chest 1V portable HISTORY: Shortness of breath. COMPARISON: Chest CTA 07/30/2020. FINDINGS: No pneumothorax. No pleural fusions. The cardiac silhouette remains mildly enlarged. No new focal lung consolidations to suggest pneumonia. No evidence for pulmonary edema. IMPRESSION: No significant change compared to the prior study. No acute process. ACT 112: Negative or not required by law. Electronically signed by: Delon Coombs M.D. 08/22/2021 11:29 AM
[2021-08-22 11:34] LABS: D Dimer 6350 ug/L FEU (0-500)
[2021-08-22 11:40] LABS: Troponin I < 0.03 ng/ml (0-0.04)
[2021-08-22 11:44] LABS: Alanine Aminotransferase 39 U/L (7-52); Alkaline Phosphatase 91 U/L (34-104); Anion Gap 8 (3-11); Bilirubin,Total 0.7 mg/dl (0.2-1.0); Blood Urea Nitrogen 10 mg/dl (6-23); C Reactive Protein 3.39 mg/dl (0-0.5); Carbon Dioxide 22 mmol/L (21-32); Chloride 109 mmol/L (98-107); Creatinine Clr Calc Pharmacy 89.1 ml/min; Est GFR (African American) 92.7 ml/min; Est GFR (Non-African American) 79.9 ml/min; Globulin 3.9 gm/dl (2.5-4.0); Glucose 96 mg/dl (70-99(Fasting)); Magnesium 2.2 mg/dl (1.7-2.4); Sodium 139 mmol/L (136-145); Total Protein 7.9 gm/dl (6.0-8.3); Uric Acid 4.3 mg/dl (2.6-7.2)
[2021-08-22 11:56] LABS: Aspartate Aminotransferase 34 U/L (13-39); Potassium 3.8 mmol/L (3.5-5.1)
--- NOTE | 2021-08-22 12:18 | Ultrasound Report ---
BILATERAL LOWER EXTREMITY VENOUS DOPPLER HISTORY: R>L leg swelling/pain, SOB COMPARISON STUDY: None. FINDINGS: There is normal compressibility, flow, and augmentation within the bilateral lower extremit y deep venous systems. IMPRESSION: No DVT within the right or left lower extremity. ACT 112: Negative or not required by law. Electronically signed by: Delon Coombs M.D. 08/22/2021 12:17 PM
[2021-08-22] MEDS ORDERED: cefTRIAXone SODIUM 2,000 MG/70 ML BAG IV STA (12:30)
[2021-08-22] MEDS ORDERED: methylPREDNISolone 125 MG/2 ML VIAL IV STA (12:35)
[2021-08-22] MEDS ORDERED: OPTIRAY 320 125ml IV ONE (12:40)
--- NOTE | 2021-08-22 13:07 | CT Scan Report ---
CT angio chest PE protocol CT DOSE: 777.36 mGy.cm HISTORY: 56 years-old Female with PE. Acute shortness of breath with chest pain TECHNIQUE: Multiple CTA images of the chest were obtained after the intravenous administration of 121 ml Optiray. Coronal and sagittal MIPS were obtained from the axial data set and were submitted for review. All measurements were obtained according to NASCET criteria. A dose lowering technique was u tilized adhering to the principles of ALARA. COMPARISON: CTA chest 07/30/2020 FINDINGS: CTA: Heart is mildly enlarged. No pericardial effusion. No thoracic aortic aneurysm or dissection. Bovine morphology of the thoracic aortic arch with patency of the imaged great vessels. No pulmonary emboli are identified. CT CHEST: No dominant thyroid nodule is seen. No pathologically adenopathy by CT size criteria. Unchanged 4 mm subpleural solid nodule within the superior segment right lower lobe, image 181. Mild bibasilar predo minant groundglass densities suggest atelectasis. There is no pneumothorax, pleural effusion or focal airspace consolidation. Hepatomegaly with hepatic steatosis. Mild bronchial wall thickening. The spleen appears enlarged. Cho lecystectomy. Unremarkable soft tissues. The osseous structures appear intact. IMPRESSION: 1. Cardiomegaly without acute intrathoracic abnormality. 2. No pulmonary emboli. 3. Bronchial wall thickening redemonstrated which may represent bronchitis versus reactive airway dis ease. 4. Hepatic steatosis. ACT 112: Negative or not required by law. The above report was generated using voice recognition software. It may contain grammatical, syntax o r spelling errors. Electronically signed by: Domingo Cespedes M.D. 08/22/2021 1:06 PM
--- NOTE | 2021-08-22 15:23 | History & Physical Report ---
Date of Service August 22, 2021 Assessment & Plan (1) Polyarticular joint involvement: Plan: Patient with what appears to be alteration in joint pains - 08/21/21- noted left knee pain, swelling, and redness- last week at some point her left elbow was also involved - DDX: Gout vs. Psuedogout vs. infectious vs. PMR or other arthritic disease vs. vasculitic with joint involvement - Today patient presents with severe pain to right foot and ankle - Consult Rheumatology- Appreciate Rheumatology assistance - ESR, CRP elevated- uric acid 4.3 - Continue steroid- will place on Prednisone 50mg orally daily - Hold on further abx - WBC normal - MRI foot and ankle (2) Rash and nonspecific skin eruption: Plan: Unsure of etiology with this at this time - Hold further ABX and follow with steroid dosing - Vasculitic type rash high on differential- appreciate Rheumatology - consider punch biopsy - Appreciate Rheumatology assistance - Hep C, G&C urine, ANNABELLA - further labs per rheum (3) GERD (gastroesophageal reflux disease): Plan: Continue PPI (4) Alcohol abuse: Plan: CIWAS with Benzo for Score >6 - continue thiamine (5) Bipolar 1 disorder: Plan: Continue Seroquel, topiramate, (6) COPD (chronic obstructive pulmonary disease): Plan: Asthma component- no PFTs on record - Continue albuterol and Trelegy Ellipta or equivalent (7) HLD (hyperlipidemia): Plan: Continue Atorvastatin History of Present Illness Primary Care Provider: Marilu Kunz 56 YOF with past medical history: COPD, HTN, HLD, Bipolar I, Lt knee pain, Asthma, Insomnia, GERD, Bee sting allergy (carries epi-pen), ETOH abuse. Patient comes to the [facility] today following evaluation at [facility]SH yesterday for left knee pain and swelling- she reports being given dose of antibiotic and discharged. She did not package pick up this prescription or take any further doses. Today she comes to the [facility] for complaints of pain to her right foot and new onset rash. This occurred at ~0300 this morning where she felt like her right foot was on fire- she was unable to bear weight on this. She then noticed a rash that occurs on both of her legs and ends around her umbilicus, her buttocks, sparing the rest of the trunk, arms, face. In the EMD she had routine labs performed to include ESr, CRP, PCT and D-dimer. Her D-dimer was elevated to 6350- she then received CT scan of the chest and bilateral lower Doppler scans that were both negative for VTE/PE. She was given 1 dose of Rocephin 2GM for concern of cellulitis of the right foot and 60mg IV Methylpred. Hospitalist service was consulted for evaluation: The patient right foot is warm with good pulses, but has erythema along the first toe through the metatarsal. There is some surrounding edema, she has pain through the majority of her plantar section of her foot as well as the superior part of her foot. She has decreased ROM with her toes as well as pain with flexion and extension along both superior and plantar surfaces. This is localized to this area only. She has round, macular rash, non painful, non-blanching, reddish in color without purpura, ecchymosis appearing to inside of her right foot, it is not circumferential and not on the soles of foot or palms of hands. This has not been associated with any fevers, further ulcerations in mouth or other areas of skin, she has not had any pulmonary complaints, and her CTA of her chest is unremarkable. Patient COVID test is: NEGATIVE Allergies Allergy/AdvReac Type Severity Reaction Status Date / Time aspirin Allergy Unknown UNKNOWN Unverified 08/22/21 12:23 bee venom protein (honey bee) Allergy Unknown UNKNOWN Unverified 08/22/21 12:23 Cipro Allergy Unknown UNKNOWN Unverified 03/24/17 21:04 ciprofloxacin [Cipro] Allergy Unknown UNKNOWN Unverified 08/22/21 12:23 propoxyphene Allergy Unknown UNKNOWN Unverified 08/22/21 12:23 Home Medications Medication Instructions Recorded Confirmed Type albuterol sulfate 90 mcg/actuation 2 puff INHALATION QID PRN 07/29/20 08/22/21 History aerosol inhaler alprazolam 1 mg tablet 1 mg PO QID PRN 07/29/20 08/22/21 History atorvastatin 40 mg tablet 40 mg PO DAILY 07/29/20 08/22/21 History citalopram 10 mg tablet 10 mg PO QAM 07/29/20 08/22/21 History citalopram 40 mg tablet 40 mg PO QAM 07/29/20 08/22/21 History epinephrine 0.3 mg/0.3 mL 0.3 mg IM Q4H PRN 07/29/20 08/22/21 History injection, auto-injector losartan 25 mg tablet 25 mg PO DAILY 07/29/20 08/22/21 History mirtazapine 30 mg tablet 30 mg PO HS 07/29/20 08/22/21 History montelukast 10 mg tablet 10 mg PO PM 07/29/20 08/22/21 History (Singulair) pantoprazole 20 mg tablet,delayed 20 mg PO DAILY 07/29/20 08/22/21 History release (Protonix) quetiapine 400 mg tablet (Seroquel) 400 mg PO QPM 07/29/20 08/22/21 History topiramate 100 mg tablet 100 mg PO QAM 07/29/20 08/22/21 History zolpidem 10 mg tablet 10 mg PO HS PRN 07/29/20 08/22/21 History ergocalciferol (vitamin D2) 1,250 50,000 unit PO WK 08/22/21 08/22/21 History mcg (50,000 unit) capsule fluticasone fur. 200 mcg-umeclid 1 inh INHALATION DAILY 08/22/21 08/22/21 History 62.5 mcg-vilant 25 mcg inhalat.powder (Trelegy Ellipta) folic acid 800 mcg tablet 800 mg PO DIRECTED 08/22/21 08/22/21 History mepolizumab 100 mg/mL subcutaneous 0 mg SUBCUT MONTHLY 08/22/21 08/22/21 History auto-injector (Nucala) thiamine mononitrate (vit B1) 100 100 mg PO BID 08/22/21 08/22/21 History mg tablet topiramate 100 mg tablet 150 mg PO QPM 08/22/21 08/22/21 History Past Med/Surg History Medical History (Updated 08/22/21 @ 19:34 by Yulia Ray MD) Anxiety Asthma Bipolar 1 disorder Chest pain COPD (chronic obstructive pulmonary disease) HLD (hyperlipidemia) HTN (hypertension) Surgical History No pertinent past surgical history Family History Grandmother Myocardial infarction Other Hypertension Social History Smoking Status: Former smoker Number of Years Since Quit: 4; Second Hand Exposure: No; Do You Dip or Chew Tobacco: No; Tobacco Cessation Education Requested by Patient: No Hx Alcohol Use: Yes Alcohol type: hard liquor Hx Substance Use: No Preferred Language: Ethiopian 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 Ability: Effective Television Inspector Required: No Beliefs That Will Affect Care: None Current Living Situation: Significant Other Other Information That Helps Us Care for You: No Feels Safe at Home: Yes Assistive Devices: None Review of Systems Review of Systems: REVIEW OF SYSTEMS: Constitutional: No fever, sweats or chills Eyes: No diplopia, no worsening or blurred vision ENT: normal hearing, no trouble swallowing Respiratory: No cough, sputum, dyspnea at rest or on exertion Cardiovascular: No chest pain, tightness or palpitations Abdomen: No pain, nausea, vomiting, diarrhea or constipation Musculoskeletal: (+) joint pain to right foot, left knee yesterday (resolved), left elbow (resolved) Neurologic: No weakness, numbness/tingling, or balance problems Psychiatric: No anxiety or depression Skin: No rash or itch Physical Exam Physical Exam: PHYSICAL EXAM: General: awake, alert, no apparent distress Head: Normocephalic, atraumatic ENT: PERRL, EOMI, no pharyngeal exudate, mucous membranes moist Neuro: AAO x 3, speech clear and appropriate, strength intact bilaterally 5/5, sensation intact and equal all extremities and dermatomes, no pronator drift Chest: equal rise and fall of the chest, no accessory muscle use, no heaves or thrills, Clear to auscultation, on room air, Cardiac: Regular rate and rhythm, telemetry reviewed, skin warm dry, cap refill <3 seconds, peripheral pulses +2 no JVD, no murmur, trace edema to lower extremities GI: NABS x 4 quadrants, soft, nontender to palpation, no rebound, guarding or tenderness : Spontaneously voiding, no pain, no CVA tenderness, Psych: Normal mood and affect MSK: Right foot and ankle pain, erythema around metatarsal, bruising to medial aspect, trace edema, pain along the plantar surface and tendon. pain with flexion and extension of toes, unable to bear weight Skin: rash as described above bilateral lower extremity to umbilicus. Results & Data Results & Data ([facility]) Vital Signs (Past 12 Hours) Vital Signs Temp Pulse Pulse Resp BP BP Pulse Ox 08/22/21 13:00 80 18 121/74 97 08/22/21 11:50 81 20 118/76 98 08/22/21 10:24 68 20 95 08/22/21 09:54 36.3 C L 117 H 22 170/96 H 98 Laboratory Results Abnormal lab results 08/22/21 08/22/21 08/22/21 Range/Units 10:35 10:35 10:35 MCHC 31.4 L (32-36) g/dL RDW Std Deviation 49.6 H (36.4-46.3) fL Immature Gran # (Auto) 0.04 H (0.00-0.02) K/uL ESR 56 H (0-30) mm/hr D-Dimer (0-500) ug/L FEU Chloride 109 H (98-107) mmol/L C-Reactive Protein 3.39 H (0-0.5) mg/dl 08/22/21 Range/Units 10:59 MCHC (32-36) g/dL RDW Std Deviation (36.4-46.3) fL Immature Gran # (Auto) (0.00-0.02) K/uL ESR (0-30) mm/hr D-Dimer 6350 H* (0-500) ug/L FEU Chloride (98-107) mmol/L C-Reactive Protein (0-0.5) mg/dl Diagnostic Findings Chest X-Ray 08/22/21 10:24 XR chest 1V portable HISTORY: Shortness of breath. COMPARISON: Chest CTA 07/30/2020. FINDINGS: No pneumothorax. No pleural fusions. The cardiac silhouette remains mildly enlarged. No new focal lung consolidations to suggest pneumonia. No evidence for pulmonary edema. IMPRESSION: No significant change compared to the prior study. No acute process. ACT 112: Negative or not required by law. Electronically signed by: Delon Coombs M.D. 08/22/2021 11:29 AM Venous Doppler Study 08/22/21 10:24 BILATERAL LOWER EXTREMITY VENOUS DOPPLER HISTORY: R>L leg swelling/pain, SOB COMPARISON STUDY: None. FINDINGS: There is normal compressibility, flow, and augmentation within the bilateral lower extremity deep venous systems. IMPRESSION: No DVT within the right or left lower extremity. ACT 112: Negative or not required by law. Electronically signed by: Delon Coombs M.D. 08/22/2021 12:17 PM Chest CTA 08/22/21 12:29 CT angio chest PE protocol CT DOSE: 777.36 mGy.cm HISTORY: 56 years-old Female with PE. Acute shortness of breath with chest pain TECHNIQUE: Multiple CTA images of the chest were obtained after the intravenous administration of 121 ml Optiray. Coronal and sagittal MIPS were obtained from the axial data set and were submitted for review. All measurements were obtained according to NASCET criteria. A dose lowering technique was utilized adhering to the principles of ALARA. COMPARISON: CTA chest 07/30/2020 FINDINGS: CTA: Heart is mildly enlarged. No pericardial effusion. No thoracic aortic aneurysm or dissection. Bovine morphology of the thoracic aortic arch with patency of the imaged great vessels. No pulmonary emboli are identified. CT CHEST: No dominant thyroid nodule is seen. No pathologically adenopathy by CT size criteria. Unchanged 4 mm subpleural solid nodule within the superior segment right lower lobe, image 181. Mild bibasilar predominant groundglass densities suggest atelectasis. There is no pneumothorax, pleural effusion or focal airspace consolidation. Hepatomegaly with hepatic steatosis. Mild bronchial wall thickening. The spleen appears enlarged. Cholecystectomy. Unremarkable soft tissues. The osseous structures appear intact. IMPRESSION: 1. Cardiomegaly without acute intrathoracic abnormality. 2. No pulmonary emboli. 3. Bronchial wall thickening redemonstrated which may represent bronchitis versus reactive airway disease. 4. Hepatic steatosis. ACT 112: Negative or not required by law. The above report was generated using voice recognition software. It may contain grammatical, syntax or spelling errors. Electronically signed by: Domingo Cespedes M.D. 08/22/2021 1:06 PM MR foot RT w/o con HISTORY: 56 years-old Female unable to bear weight, pain with flexion acute pain and swelling of the right foot COMPARISON: None TECHNIQUE: Multiplanar multisequence MRI of the right foot was obtained without the use of IV contrast. FINDINGS: Motion degraded exam. Moderate subcutaneous edema is most pronounced dorsally. No fluid collection to suggest abscess. Bone marrow signal is within normal limits. No acute fracture, dislocation or osseous erosion. The Lisfranc ligament is identified and appears intact. No evidence of perineural fibrosis (Cedeno neuroma). The imaged flexor and extensor tendons appear unremarkable. The plantar plates appear to be within normal limits. Minimal osteoarthritis of the forefoot. IMPRESSION: 1. Moderate subcutaneous edema, most pronounced dorsally. Findings may be secondary to cellulitis, venous stasis or lymphedema. No abscess. 2. No acute fracture or bony erosion. 3. No acute ligamentous or tendinous injury identified. ACT 112: Negative or not required by law. The above report was generated using voice recognition software. It may contain grammatical, syntax or spelling errors. Electronically signed by: Domingo Cespedes M.D. 08/22/2021 5:00 PM MR ankle RT wo con CLINICAL HISTORY: 56 years-old Female with unable to bear weight, pain with flexion of toes-. Acute pain of the right foot and ankle without known injury COMPARISON: Right foot MRI of same day TECHNIQUE: Multiplanar, multi sequence MRI of the right ankle was performed without contrast. FINDINGS: Mildly motion degraded exam. LATERAL LIGAMENT COMPLEX: Attenuation of the anterior talofibular ligament suggestive of chronic sprain. The calcaneofibular ligament and posterior talofibular ligaments are intact. SYNDESMOTIC LIGAMENTS: The anterior-inferior tibiofibular ligament, interosseous membrane and posterior-inferior tibiofibular ligaments are intact. DELTOID LIGAMENT COMPLEX: The superficial and deep components of the deltoid ligament are intact. ANTERIOR TENDONS: The tibialis anterior, extensor hallucis longus and extensor digitorum longus tendons are normal in position, morphology and signal. LATERAL TENDONS: The peroneus longus tendinous intact. High-grade chronic appearing split tear of the peroneus brevis extends for a length of 3.4 cm within the inframalleolar segment. MEDIAL TENDONS: The posterior tibialis, flexor digitorum longus and flexor hallucis longus tendons are intact. PLANTAR FASCIA: The medial and lateral bundles of the plantar fascia are normal in morphology and signal. There is no evidence of acute plantar fasciitis or tear. No evidence of plantar fascial nodules. ACHILLES TENDON: The Achilles tendon is normal in position, morphology and signal. No associated bursitis. SINUS TARSI: There is normal fat signal within the sinus tarsi. The interosseous and cervical ligaments are normal. The navicular-calcaneal (spring) ligament iswithout acute abnormality. TARSAL TUNNEL: There are no obstructing lesions within the tarsal tunnel. BONE MARROW: Bone marrow is normal in signal without evidence of fracture, marrow contusion or marrow occupying lesion. SOFT TISSUES: There is moderate circumferential subcutaneous edema of the ankle extending into the foot, most pronounced dorsally. No abscess. Intramuscular signal is within normal limits. IMPRESSION: 1. Motion degraded exam. No acute fracture or marrow edema. 2. Moderate diffuse subcutaneous edema. This may represent cellulitis, venous stasis or lymphedema. 3. Chronic appearing high-grade split tear of the inframalleolar segment of the peroneus brevis tendon. ACT 112: Negative or not required by law. The above report was generated using voice recognition software. It may contain grammatical, syntax or spelling errors. Electronically signed by: Domingo Cespedes M.D. 08/22/2021 5:59 PM Medications Administered Home Medications albuterol sulfate 90 mcg/actuation aerosol inhaler 2 puff INHALATION QID PRN 07/29/20 [History Confirmed 08/22/21] alprazolam 1 mg tablet 1 mg PO QID PRN 07/29/20 [History Confirmed 08/22/21] atorvastatin 40 mg tablet 40 mg PO DAILY 07/29/20 [History Confirmed 08/22/21] citalopram 10 mg tablet 10 mg PO QAM 07/29/20 [History Confirmed 08/22/21] citalopram 40 mg tablet 40 mg PO QAM 07/29/20 [History Confirmed 08/22/21] epinephrine 0.3 mg/0.3 mL injection, auto-injector 0.3 mg IM Q4H PRN 07/29/20 [History Confirmed 08/22/21] losartan 25 mg tablet 25 mg PO DAILY 07/29/20 [History Confirmed 08/22/21] mirtazapine 30 mg tablet 30 mg PO HS 07/29/20 [History Confirmed 08/22/21] montelukast 10 mg tablet (Singulair) 10 mg PO PM 07/29/20 [History Confirmed 08/22/21] pantoprazole 20 mg tablet,delayed release (Protonix) 20 mg PO DAILY 07/29/20 [History Confirmed 08/22/21] quetiapine 400 mg tablet (Seroquel) 400 mg PO QPM 07/29/20 [History Confirmed 08/22/21] topiramate 100 mg tablet 100 mg PO QAM 07/29/20 [History Confirmed 08/22/21] zolpidem 10 mg tablet 10 mg PO HS PRN 07/29/20 [History Confirmed 08/22/21] ergocalciferol (vitamin D2) 1,250 mcg (50,000 unit) capsule 50,000 unit PO WK 08/22/21 [History Confirmed 08/22/21] fluticasone fur. 200 mcg-umeclid 62.5 mcg-vilant 25 mcg inhalat.powder (Trelegy Ellipta) 1 inh INHALATION DAILY 08/22/21 [History Confirmed 08/22/21] folic acid 800 mcg tablet 800 mg PO DIRECTED 08/22/21 [History Confirmed 08/22/21] mepolizumab 100 mg/mL subcutaneous auto-injector (Nucala) 0 mg SUBCUT MONTHLY 08/22/21 [History Confirmed 08/22/21] thiamine mononitrate (vit B1) 100 mg tablet 100 mg PO BID 08/22/21 [History Confirmed 08/22/21] topiramate 100 mg tablet 150 mg PO QPM 08/22/21 [History Confirmed 08/22/21] Discontinued Medications Sodium Chloride (Nss) 500 mls @ 999 mls/hr IV .Q31M MATHEW Stop: 08/22/21 11:00 Last Infusion: 08/22/21 11:18 Dose: 0 mls/hr Documented by: [id number] Admin: 08/22/21 10:38 Dose: 999 mls/hr Documented by: [id number] Ceftriaxone Sodium (Rocephin) 2,000 mg in 70 mls @ 140 mls/hr IV NOW STA Stop: 08/22/21 12:59 Last Infusion: 08/22/21 13:55 Dose: 0 mls/hr Documented by: [id number] Admin: 08/22/21 12:47 Dose: 140 mls/hr Documented by: [id number] Ioversol (Optiray 320 125ml) 121 ml IV ONCE ONE Stop: 08/22/21 12:41 Last Admin: 08/22/21 12:40 Dose: 121 ml Documented by: [id number] Methylprednisolone (Methylprednisolone 125 Mg/2 Ml Vial) 60 mg IV NOW STA Stop: 08/22/21 12:36 Last Admin: 08/22/21 12:47 Dose: 60 mg Documented by: [id number] Morphine Sulfate (Morphine Sulfate 4 Mg/Ml 1 Ml Carp\Vial) 4 mg IV NOW STA Stop: 08/22/21 10:25 Last Admin: 08/22/21 10:38 Dose: 4 mg Documented by: [id number] Additional Comments: Normal sinus rhythm Prolonged QT Abnormal ECG When compared with ECG of 29-JUL-2020 16:18, No significant change was found Code Status & VTE Plan Code Status CODE: FULL VTE: SCDS, Lovenox Supervising Physician Co-Signing Physician Notes 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 No fvers/chills. SH ehad a swollen red knee yesterday and went to the [facility] and was treated with IV abx for cellulitis and today her knee feels much better, is not red but still a bit painful and swollen. The rash on her legs is not itchy at all. History and ROS reviewed as above Vitals reviewed NAD, AAOx3 Anicteric sclerae, EOMI RRR no mgr CTAB no wcr ABd +BS soft NT ND Ext +edema nonpitting in right foot and ankle with severe +TTP over foot and ankle, very mild erythema; left knee with small joint effusion, no erythema, +TTP over MJL and LJL, FROM Skin: scattered macular darkly erythematous, nonblanching circular lesions, varying from 0.5-1cm in diameter, nontender 56 yo female here with possible gout vs pseudogout with migratory arthritis that is severe in nature with pain, swelling, erythema consistent w/ crystalline arthritis. 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 PG Care Time/CCT Total # of Minutes Spent Total Time Spent with Patient: Total time spent is greater than 50% in coordination of care (as documented) at patient's floor/unit and/or counseling patient: Coding Level of Care Code 85293 Initial Inpt Care Lvl 3 Diagnoses Polyarticular joint involvement R29.898 Rash and nonspecific skin eruption R21 GERD (gastroesophageal reflux disease) K21.9 Alcohol abuse F10.10 Bipolar 1 disorder F31.9 COPD (chronic obstructive pulmonary disease) J44.9 HLD (hyperlipidemia) E78.5
[2021-08-22 16:09] LABS: Procalcitonin < 0.05 ng/ml (0-0.5)
--- NOTE | 2021-08-22 16:32 | Electrocardiogram Report ---
Test Reason : Blood Pressure : / mmHG Vent. Rate : 092 BPM Atrial Rate : 092 BPM P-R Int : 170 ms QRS Dur : 092 ms QT Int : 398 ms P-R-T Axes : 047 031 042 degrees QTc Int : 492 ms Normal sinus rhythm Prolonged QT Abnormal ECG When compared with ECG of 29-JUL-2020 16:18, QT has lengthened Confirmed by Cyrus Smith ([id number]) on 08/22/2021 4:31:47 PM Referred By: Confirmed By:Cyrus Smith
--- NOTE | 2021-08-22 17:01 | Magnetic Resonance Report ---
MR foot RT w/o con HISTORY: 56 years-old Female unable to bear weight, pain with flexion acute pain and swelling of the right foot COMPARISON: None TECHNIQUE: Multiplanar multisequence MRI of the right foot was obtained without the use of IV contras t. FINDINGS: Motion degraded exam. Moderate subcutaneous edema is most pronounced dorsally. No fluid collection to suggest abscess. Bone marrow signal is within normal limits. No acute fracture, dislocation or osseo us erosion. The Lisfranc ligament is identified and appears intact. No evidence of perineural fibrosi s (Cedeno neuroma). The imaged flexor and extensor tendons appear unremarkable. The plantar plates ap pear to be within normal limits. Minimal osteoarthritis of the forefoot. IMPRESSION: 1. Moderate subcutaneous edema, most pronounced dorsally. Findings may be secondary to cellulitis, ve nous stasis or lymphedema. No abscess. 2. No acute fracture or bony erosion. 3. No acute ligamentous or tendinous injury identified. ACT 112: Negative or not required by law. The above report was generated using voice recognition software. It may contain grammatical, syntax o r spelling errors. Electronically signed by: Domingo Cespedes M.D. 08/22/2021 5:00 PM
[2021-08-22 17:49] LABS: Lyme Ab IgG w/WB Rflx Negative (Negative)
--- NOTE | 2021-08-22 18:00 | Magnetic Resonance Report ---
MR ankle RT wo con CLINICAL HISTORY: 56 years-old Female with unable to bear weight, pain with flexion of toes-. Acute pain of the right foot and ankle without known injury COMPARISON: Right foot MRI of same day TECHNIQUE: Multiplanar, multi sequence MRI of the right ankle was performed without contrast. FINDINGS: Mildly motion degraded exam. LATERAL LIGAMENT COMPLEX: Attenuation of the anterior talofibular ligament suggestive of chronic spra in. The calcaneofibular ligament and posterior talofibular ligaments are intact. SYNDESMOTIC LIGAMENTS: The anterior-inferior tibiofibular ligament, interosseous membrane and posteri or-inferior tibiofibular ligaments are intact. DELTOID LIGAMENT COMPLEX: The superficial and deep components of the deltoid ligament are intact. ANTERIOR TENDONS: The tibialis anterior, extensor hallucis longus and extensor digitorum longus tendo ns are normal in position, morphology and signal. LATERAL TENDONS: The peroneus longus tendinous intact. High-grade chronic appearing split tear of the peroneus brevis extends for a length of 3.4 cm within the inframalleolar segment. MEDIAL TENDONS: The posterior tibialis, flexor digitorum longus and flexor hallucis longus tendons ar e intact. PLANTAR FASCIA: The medial and lateral bundles of the plantar fascia are normal in morphology and sig nal. There is no evidence of acute plantar fasciitis or tear. No evidence of plantar fascial nodule s. ACHILLES TENDON: The Achilles tendon is normal in position, morphology and signal. No associated burs itis. SINUS TARSI: There is normal fat signal within the sinus tarsi. The interosseous and cervical ligamen ts are normal. The navicular-calcaneal (spring) ligament iswithout acute abnormality. TARSAL TUNNEL: There are no obstructing lesions within the tarsal tunnel. BONE MARROW: Bone marrow is normal in signal without evidence of fracture, marrow contusion or marrow occupying lesion. SOFT TISSUES: There is moderate circumferential subcutaneous edema of the ankle extending into the fo ot, most pronounced dorsally. No abscess. Intramuscular signal is within normal limits. IMPRESSION: 1. Motion degraded exam. No acute fracture or marrow edema. 2. Moderate diffuse subcutaneous edema. This may represent cellulitis, venous stasis or lymphedema. 3. Chronic appearing high-grade split tear of the inframalleolar segment of the peroneus brevis tendo n. ACT 112: Negative or not required by law. The above report was generated using voice recognition software. It may contain grammatical, syntax o r spelling errors. Electronically signed by: Domingo Cespedes M.D. 08/22/2021 5:59 PM
[2021-08-22 18:01] LABS: Lyme Ab IgM w/WB Rflx Equivocal (Negative)
--- NOTE | 2021-08-22 18:08 | Rheumatology Consultation ---
Rheumatology Consultation DOS August 22, 2021 Reason for Consultation Polyarticular arthritis and lower extremity rash Assessment & Plan (1) Rash and nonspecific skin eruption: Appears consistent with an LCV rash which can be from drug reaction vs infection (2) Polyarticular joint involvement: concerning for either infectious (reactive)vs crystalline arthropathy vs systemic. Uric acid can be low in an acute flare 1. Agree with checking hepatitis C status -- returned negative 2. Please consider checking the following labs: cryoglobulins, C3, C4, Ch50, R F, CCP, serum immunoglobulins, ANCA, ANNABELLA and dsDNA. Please obtain urinalysis 3. Treat with steroids as you are with plan to taper (40mg IV tomorrow, then 40 mg daily for 3 days then decrease by 10 mg every 3 days 4. Can consult dermatology to biopsy rash History of Present Illness History of Present Illness 56 year old woman who was in her usual state of health until 2 days prior to admission when she developed acute onset of left elbow and left knee pain. She had redness of her left knee. She presented at an outside ED and reports that she had x-rays of the left knee done, diagnosed with cellulitis, given 1 dose of oral antibiotics and sent home with a prescription of antibiotics. At 3 am this morning, she woke up with pain and swelling of her right foot. She also noted a rash that started on her lower legs and has extended to her abdomen and buttock. The rash is nonpruritic. Left knee is not as painful and left elbow is improved. Right foot is the main issue as she can hardly bare weight. This has never happened before. Has history of chronic left knee pain from an injury in high school. Typically uses Tylenol containing product for pain control. No family history of inflammatory arthritis. Notes that her daughter gets psoriasis but she has no personal history of psoriasis. No history of rashes, fevers, chills, weight loss, night sweats or oral ulcers. Denies drug use. Reports history of blood transfusion when she had her son many years ago. Allergies Allergy/AdvReac Type Severity Reaction Status Date / Time aspirin Allergy Unknown UNKNOWN Unverified 08/22/21 12:23 bee venom protein (honey bee) Allergy Unknown UNKNOWN Unverified 08/22/21 12:23 Cipro Allergy Unknown UNKNOWN Unverified 03/24/17 21:04 ciprofloxacin [Cipro] Allergy Unknown UNKNOWN Unverified 08/22/21 12:23 propoxyphene Allergy Unknown UNKNOWN Unverified 08/22/21 12:23 Home Medications Medication Instructions Recorded Confirmed Type albuterol sulfate 90 mcg/actuation 2 puff INHALATION QID PRN 07/29/20 08/22/21 History aerosol inhaler alprazolam 1 mg tablet 1 mg PO QID PRN 07/29/20 08/22/21 History atorvastatin 40 mg tablet 40 mg PO DAILY 07/29/20 08/22/21 History citalopram 10 mg tablet 10 mg PO QAM 07/29/20 08/22/21 History citalopram 40 mg tablet 40 mg PO QAM 07/29/20 08/22/21 History epinephrine 0.3 mg/0.3 mL 0.3 mg IM Q4H PRN 07/29/20 08/22/21 History injection, auto-injector losartan 25 mg tablet 25 mg PO DAILY 07/29/20 08/22/21 History mirtazapine 30 mg tablet 30 mg PO HS 07/29/20 08/22/21 History montelukast 10 mg tablet 10 mg PO PM 07/29/20 08/22/21 History (Singulair) pantoprazole 20 mg tablet,delayed 20 mg PO DAILY 07/29/20 08/22/21 History release (Protonix) quetiapine 400 mg tablet (Seroquel) 400 mg PO QPM 07/29/20 08/22/21 History topiramate 100 mg tablet 100 mg PO QAM 07/29/20 08/22/21 History zolpidem 10 mg tablet 10 mg PO HS PRN 07/29/20 08/22/21 History ergocalciferol (vitamin D2) 1,250 50,000 unit PO WK 08/22/21 08/22/21 History mcg (50,000 unit) capsule fluticasone fur. 200 mcg-umeclid 1 inh INHALATION DAILY 08/22/21 08/22/21 History 62.5 mcg-vilant 25 mcg inhalat.powder (Trelegy Ellipta) folic acid 800 mcg tablet 800 mg PO DIRECTED 08/22/21 08/22/21 History mepolizumab 100 mg/mL subcutaneous 0 mg SUBCUT MONTHLY 08/22/21 08/22/21 History auto-injector (Nucala) thiamine mononitrate (vit B1) 100 100 mg PO BID 08/22/21 08/22/21 History mg tablet topiramate 100 mg tablet 150 mg PO QPM 08/22/21 08/22/21 History Patient History Medical History (Updated 08/22/21 @ 19:34 by Yulia Ray MD) Anxiety Asthma Bipolar 1 disorder Chest pain COPD (chronic obstructive pulmonary disease) HLD (hyperlipidemia) HTN (hypertension) Surgical History No pertinent past surgical history Family History Grandmother Myocardial infarction Other Hypertension Social History Smoking Status: Former smoker Number of Years Since Quit: 4; Second Hand Exposure: No; Do You Dip or Chew Tobacco: No; Tobacco Cessation Education Requested by Patient: No Hx Alcohol Use: Yes Alcohol type: hard liquor Hx Substance Use: No Preferred Language: [place] Citizen 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 Ability: Effective Garage Supervisor Required: No Beliefs That Will Affect Care: None Current Living Situation: Significant Other Other Information That Helps Us Care for You: No Feels Safe at Home: Yes Assistive Devices: None Review of Systems Review of Systems: As per HPI Physical Exam Physical Exam: Gen: sitting up in bed in no acute distress ENT: no oral ulcers Neck: supple with out LAD CV: tachycardic Resp: clear to auscultation MSK: mild erythema and warmth of left knee, soft tissue swelling of right foot extending to the right ankle, exquisite tenderness of right 1st MTP with overlying erythematous rash along the lateral aspect of the toe SKIN: nonblanching erythematous macules of varying sizes on lower legs, abdomen, and buttock; no Raynaud's or nail pitting. No onycholysis Results & Data ([facility]) Vital Signs (Past 12 Hours) Vital Signs Temp Pulse Pulse Resp BP BP Pulse Ox 08/22/21 17:00 88 20 98 08/22/21 15:00 73 20 131/78 98 08/22/21 13:00 80 18 121/74 97 08/22/21 11:50 81 20 118/76 98 08/22/21 10:24 68 20 95 08/22/21 09:54 36.3 C L 117 H 22 170/96 H 98 Laboratory Results Sed 56 CRP 3.39 d-dimer 6350 uric acid 4.33 procalcinotin <0.05 TSH 1.496 Normal CBC and CMP Diagnostic Findings CTA LE dopplers MRI of right foot
[2021-08-22] MEDS ORDERED: ALBUTEROL HFA 8 GM INHALER INH PRN (18:43)
[2021-08-22] MEDS ORDERED: ACETAMINOPHEN 325 MG TAB PO PRN (18:43)
[2021-08-22] MEDS ORDERED: LORazepam 2 MG/1 ML VIAL IV PRN (18:43)
[2021-08-22] MEDS ORDERED: LIDOCAINE 2%/EPINEPHRINE 1:100,000 20ML INFIL ONE (19:15)
[2021-08-22 19:28] LABS: Immunoglobulin A 641.5 mg/dl (70-400); Immunoglobulin G 1312.9 mg/dl (635-1741); Immunoglobulin M 92.1 mg/dl (45-281)
[2021-08-22] MEDS: MONTELUKAST SODIUM 10 MG TABLET PO SCH (20:32)
[2021-08-22] MEDS: MIRTAZAPINE TAB 15 MG TAB PO SCH (20:32)
[2021-08-22] MEDS: THIAMINE HCL 100 MG in SYRINGE 9 ML IV SCH (20:32)
[2021-08-22] MEDS: TOPIRAMATE 50 MG TAB PO SCH (20:32)
[2021-08-22] MEDS: QUEtiapine FUMARATE 200 MG TAB PO SCH (20:33)
--- NOTE | 2021-08-22 20:40 | Procedure Note ---
Procedure Note Date of Service August 22, 2021 Note Procedure: DERM PUNCH BIOPSY Indication: New onset non blanchable macular rash Performed by: Terry BOATENG ([facility])- Direct Supervision by Dr. Ray Consent was obtained by Dr. Ray and the patient. Time out was performed and the patient was identified. Patient was able to participate in self identification and procedure. The site was cleansed with CHG allowed to dry. The site was then injected with 2ML of lidocaine 2% with epinephrine 1:100,000. The site was then biopsied to include macular area and normal tissue border with a 6mm skin punch biopsy tool. This was inserted with twisting motion down t approx 3-4mm with return of sample and fat underlying. The site was then closed with 2 4.o sutures and covered with gauze. Patient tolerated the procedure well. No immediate complications noted. Supervising Physician Co-Signing Physician Notes KILO Supervision note: I have personally seen and examined the patient and discussed and verified the davis points of the procedure along with the plan with KILO Mason with the following exceptions and/or additions:none. I was present and supervised the entire procedure Coding [facility] Procedure Codes (Charges) Indication for Procedure Indication for procedure: macular rash with concern for vasculitis
--- NOTE | 2021-08-22 20:44 | Billing Data ---
Date of Service August 22, 2021 Coding Level of Care Code 85212 Initial Inpt Care Lvl 3 CPT Codes Punch Biopsy of 1 Lesion - 30770 ([id number]) Comment see procedure note from Terry Mason on 08/22/21
[2021-08-22] MEDS: ZOLPIDEM TARTRATE 10 MG TAB PO PRN (20:50)
[2021-08-22 21:49] LABS: Appearance Urine Clear (Clear); Bilirubin Urine Negative (Negative); Blood Urine Negative (Negative); Color Urine Yellow; Glucose Urine UA Negative (Negative); Ketones Urine Negative (Negative); Leukocyte Esterase Urine Negative (Negative); Nitrite Urine Negative (Negative); Protein Urine Negative (Negative); Urobilinogen Urine Negative (Negative); pH Urine 8.5 (4.5-7.5)
[2021-08-23 06:10] LABS: Basophils # (auto) 0.02 K/uL (0-0.2); Basophils % (auto) 0.2 %; Eosinophils # (auto) 0.02 K/uL (0-0.5); Eosinophils % (auto) 0.2 %; Hematocrit (blood only) 40.1 % (37-47); Hemoglobin 12.4 g/dL (12.0-16.0); Immature Granulocytes # (auto) 0.01 K/uL (0.00-0.02); Immature Granulocytes % (auto) 0.1 %; Lymphocytes # (auto) 2.21 K/uL (1.2-3.4); Lymphocytes % (auto) 26.7 %; Mean Corpuscular Hemoglobin 28.8 pg (25-34); Mean Corpuscular Hgb Conc 30.9 g/dL (32-36); Mean Platelet Volume 9.6 fL (7.4-10.4); Monocytes % (auto) 7.3 %; Neutrophils # (auto) 5.41 K/uL (1.4-6.5); Neutrophils % (auto) 65.5 %; Platelet Count 347 K/uL (130-400); RDW Coefficient of Variation 14.5 % (11.5-14.5); RDW Standard Deviation 49.7 fL (36.4-46.3); Red Blood Count 4.31 M/uL (4.2-5.4); White Blood Count 8.27 K/uL (4.8-10.8)
[2021-08-23 06:35] LABS: Albumin Globulin Ratio 1.1 (0.9-2); Albumin Level 3.9 gm/dl (3.4-5.0); BUN Creatinine Ratio 14.5 (10-20); Bilirubin Direct 0.1 mg/dl (0-0.2); Bilirubin,Total 0.6 mg/dl (0.2-1.0); Calcium 8.9 mg/dl (8.5-10.1); Creatinine Clr Calc Pharmacy 90.8 ml/min; Est GFR (African American) 92.7 ml/min; Est GFR (Non-African American) 79.9 ml/min; Globulin 3.7 gm/dl (2.5-4.0); Magnesium 2.3 mg/dl (1.7-2.4); Potassium 3.5 mmol/L (3.5-5.1); Total Protein 7.6 gm/dl (6.0-8.3)
[2021-08-23] MEDS: LOSARTAN POTASSIUM 25 MG TAB PO SCH (07:49)
[2021-08-23] MEDS: ATORVASTATIN 40 MG TAB PO SCH (07:49)
[2021-08-23] MEDS: UMECLIDINIUM/VILANTEROL 62.5/25MCG 7 PUFFS/INHALER INH SCH (07:49)
[2021-08-23] MEDS: TOPIRAMATE 100 MG TAB PO SCH (07:49)
[2021-08-23] MEDS: PANTOprazole 40 MG TAB PO SCH (07:49)
[2021-08-23] MEDS: ENOXAPARIN INJ 40 MG/0.4 ML SYR SQ SCH (07:50)
[2021-08-23] MEDS: CITALOPRAM 40 MG TAB PO SCH (07:50)
[2021-08-23] MEDS: FLUTICASONE FUROATE 100MCG 14 PUFFS/INHALER INH SCH (07:50)
[2021-08-23] MEDS: CITALOPRAM 20 MG TAB PO SCH (07:50)
[2021-08-23] MEDS: THIAMINE HCL 100 MG in SYRINGE 9 ML IV SCH (07:50)
[2021-08-23] MEDS ORDERED: predniSONE 50 MG TAB PO SCH (09:00)
--- NOTE | 2021-08-23 11:18 | Hospitalist Progress Note ---
Date of Service August 23, 2021 Assessment & Plan (1) Polyarticular joint involvement: Plan: Patient with what appears to be alteration in joint pains - 08/21/21- noted left knee pain, swelling, and redness- last week at some point her left elbow was also involved (all resolved) - now with with severe pain to right foot and ankle - exact etiology unclear - Rheumatology consulted- further labs drawn (cryoglobulins, C3, C4, Ch50, RF, CCP, serum immunoglobulins, ANCA, ANNABELLA and dsDNA)-- Appreciate assistance - ESR: 56, CRP: 3.39, uric acid 4.3 - skin bx obtained- pathology pending - Continue steroid taper as recommended by rheumatology (then 40 mg daily for 3 days then decrease by 10 mg every 3 days)-- changed to 40mg to start on 08/24 - MRI foot and ankle showing edema but not other pathology - Lyme IgM has come back equivocal. At this time, Western blot pending. Will initiate doxycycline and continue to monitor clinically (2) Rash and nonspecific skin eruption: Plan: Unsure of etiology with this at this time - punch biopsy obtained. Pathology pending - Appreciate Rheumatology assistance - Hep C negative - patient is not sexually active but G&C urine (pending) - ANNABELLA pending - does not appear to be classic erythema migrans but does have equivocal IgM. Doxycycline being initiated as outlined above - Somewhat resembles erythema multiforme - continue to follow clinically (3) GERD (gastroesophageal reflux disease): Plan: Continue PPI (4) Alcohol abuse: Plan: CIWAS with Benzo for Score >6 - continue thiamine - drinks usually on weekends and last drink was 2 weeks ago. Not highly suspicious for Acute ETOH Withdrawal (5) Bipolar 1 disorder: Plan: Continue Seroquel, topiramate, (6) COPD (chronic obstructive pulmonary disease): Plan: Asthma component- no PFTs on record - Continue albuterol and Trelegy Ellipta or equivalent (7) HLD (hyperlipidemia): Plan: Continue Atorvastatin Plan: plan of care to be d/w Dr. Giordano. Further orders as warranted. Admission and Anticipated Discharge Date Admission Date: August 22, 2021 Supervising Physician Co-Signing Physician Notes chart reviewed, case d/w Ramandeep Michel PAC - agree w above Subjective Patient seen on daily rounds today. 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 Has since migrated to the right toe. Pain so severe that she is not able to bear weight. Also has progressive rash. The rash does not itch and is nonpainful. Denies fevers or chills. Punch biopsy obtainedpending Seen by rheumatology who has recommended tapering course of prednisone. Despite this, patient reports no change in her pain Labs obtained. Her IgM Lyme has come back equivocal. No known history of tick bite. Denies neck pain or fevers. Review of Systems Review of Systems: All systems reviewed and are unremarkable except as noted in HPI and below Denies fevers, chills, headache, nasal congestion, sore throat, cough, chest pain, shortness of breath, palpitations, orthopnea, PND, abdominal pain, nausea, vomiting, diarrhea, constipation, dysuria, hematuria, frequency, back pain, easy bruising or bleeding Physical Exam Physical Exam: General: Resting comfortably in her hospital bed. She does not appear ill or toxic. NAD. HEENT: Head is AT/NC. Buccal mucosa is moist and pink Neck: No JVD. Negative hepatojugular reflex Cardiac: RRR without M/G/R Lungs: CTA without W/R/R Abdomen: Normoactive X4. Soft and nontender in all quadrants. Extremities: Patient with edema of the right great toe. Appears to have some bruising in this region. Neuro: A&O X4. Cranial nerves II through XII are grossly intact. No focal neuro deficits Skin: Multiple lesions scattered on her bilateral legs and to the buttock. These are various sizes but macular and erythematous. They do not xiomara. 2 of these lesions appear to potentially have central clearing. There are no rolled edges. Skin is flat. Psych: Appropriate affect. Pleasant and cooperative Results & Data Results & Data ([facility]) Vital Signs (Past 12 Hours) Vital Signs Temp Pulse Pulse Resp BP Pulse Ox 08/23/21 08:00 36.3 C L 84 16 127/76 98 08/23/21 02:36 87 12 95 Diagnostic Findings 08/23/21 05:48 08/23/21 05:48 PG Care Time/CCT Total # of Minutes Spent Total Time Spent with Patient: Total time spent is greater than 50% in coordination of care (as documented) at patient's floor/unit and/or counseling patient: Coding Level of Care Code 63012 Subseq Hosp Care Lvl 2 Diagnoses Polyarticular joint involvement R29.898 Rash and nonspecific skin eruption R21 GERD (gastroesophageal reflux disease) K21.9 Alcohol abuse F10.10 Bipolar 1 disorder F31.9 COPD (chronic obstructive pulmonary disease) J44.9 HLD (hyperlipidemia) E78.5
[2021-08-23] MEDS: DOXYCYCLINE HYCLATE 100 MG in DEXTROSE 5% 100 ML IV SCH ×2 (12:13→20:22)
[2021-08-23] MEDS: ALPRAZolam 0.5 MG TABLET PO PRN ×2 (12:13→20:21)
[2021-08-23] MEDS: MIRTAZAPINE TAB 15 MG TAB PO SCH (20:20)
[2021-08-23] MEDS: MONTELUKAST SODIUM 10 MG TABLET PO SCH (20:20)
[2021-08-23] MEDS: QUEtiapine FUMARATE 200 MG TAB PO SCH (20:20)
[2021-08-23] MEDS: TOPIRAMATE 50 MG TAB PO SCH (20:21)
[2021-08-23] MEDS: ZOLPIDEM TARTRATE 10 MG TAB PO PRN (20:22)
[2021-08-24 07:11] LABS: Basophils # (auto) 0.03 K/uL (0-0.2); Basophils % (auto) 0.4 %; Eosinophils # (auto) 0.06 K/uL (0-0.5); Eosinophils % (auto) 0.8 %; Hematocrit (blood only) 38.9 % (37-47); Hemoglobin 12.2 g/dL (12.0-16.0); Immature Granulocytes # (auto) 0.04 K/uL (0.00-0.02); Immature Granulocytes % (auto) 0.5 %; Lymphocytes # (auto) 2.67 K/uL (1.2-3.4); Mean Corpuscular Hemoglobin 29.3 pg (25-34); Mean Corpuscular Hgb Conc 31.4 g/dL (32-36); Mean Corpuscular Volume 93.3 fL (80-100); Mean Platelet Volume 10.5 fL (7.4-10.4); Monocytes # (auto) 0.59 K/uL (0.11-0.59); Monocytes % (auto) 7.5 %; Neutrophils # (auto) 4.47 K/uL (1.4-6.5); Neutrophils % (auto) 56.8 %; Platelet Count 353 K/uL (130-400); RDW Coefficient of Variation 14.6 % (11.5-14.5); RDW Standard Deviation 49.3 fL (36.4-46.3); Red Blood Count 4.17 M/uL (4.2-5.4); White Blood Count 7.86 K/uL (4.8-10.8)
[2021-08-24 07:34] LABS: BUN Creatinine Ratio 20.5 (10-20); Creatinine Clr Calc Pharmacy 90.8 ml/min; Est GFR (African American) 92.7 ml/min; Est GFR (Non-African American) 79.9 ml/min; Magnesium 2.2 mg/dl (1.7-2.4)
[2021-08-24] MEDS: ATORVASTATIN 40 MG TAB PO SCH (08:02)
[2021-08-24] MEDS: CITALOPRAM 20 MG TAB PO SCH (08:02)
[2021-08-24] MEDS: POTASSIUM CHLORIDE CRTAB 20 MEQ TABCR PO SCH ×2 (08:02→13:29)
[2021-08-24] MEDS: TOPIRAMATE 100 MG TAB PO SCH (08:02)
[2021-08-24] MEDS: CITALOPRAM 40 MG TAB PO SCH (08:02)
[2021-08-24] MEDS: PANTOprazole 40 MG TAB PO SCH (08:02)
[2021-08-24] MEDS: LOSARTAN POTASSIUM 25 MG TAB PO SCH (08:02)
[2021-08-24] MEDS: THIAMINE HCL 100 MG in SYRINGE 9 ML IV SCH (08:03)
[2021-08-24] MEDS: ENOXAPARIN INJ 40 MG/0.4 ML SYR SQ SCH (08:03)
[2021-08-24] MEDS: DOXYCYCLINE HYCLATE 100 MG in DEXTROSE 5% 100 ML IV SCH (08:03)
[2021-08-24] MEDS: FLUTICASONE FUROATE 100MCG 14 PUFFS/INHALER INH SCH (08:03)
[2021-08-24] MEDS: UMECLIDINIUM/VILANTEROL 62.5/25MCG 7 PUFFS/INHALER INH SCH (08:03)
[2021-08-24] MEDS: predniSONE 20 MG TAB PO SCH (08:04)
--- NOTE | 2021-08-24 10:29 | Hospitalist Progress Note ---
Date of Service August 24, 2021 Assessment & Plan (1) Polyarticular joint involvement: Plan: Patient with what appears to be alteration in joint pains - 08/21/21- started with pain/erythema and edema of the left knee and left ankle (self limiting and now resolved) - presented on 08/22 with severe pain to right foot and ankle-- seems to be somewhat improved - exact etiology unclear - Rheumatology consulted- further labs drawn (cryoglobulins, C3, C4, Ch50, RF, CCP, serum immunoglobulins, ANCA, ANNABELLA and dsDNA)-- Appreciate assistance - ESR: 56, CRP: 3.39, uric acid 4.3 (although uric acid would be normal and an acute gout flare as the uric acid crystals would be elevated within the joint space, this does not seem consistent with gout as no improvement with prednisone) - skin bx obtained- pathology pending - Continue steroid taper as recommended by rheumatology (then 40 mg daily for 3 days then decrease by 10 mg every 3 days)-- changed to 40mg to start on 08/24 - MRI foot and ankle showing edema but not other pathology - Lyme IgM has come back equivocal. Western blot pending. Now on Doxycycline (2) Rash and nonspecific skin eruption: Plan: Unsure of etiology with this at this time - does not seem consistent with erythema migrans. Looks more vasculitis or consistent with multiforme? - punch biopsy obtained. Pathology pending - Appreciate Rheumatology assistance - phone consult done with dermatology (pictures sent via [employer] with patient's consent). No added recommendations as this time - Hep C negative - patient is not sexually active but G&C urine (pending) - ANNABELLA pending - does not appear to be classic erythema migrans but does have equivocal IgM. Now on doxycycline - continue to follow clinically (3) Hypokalemia: Plan: - supplement with FU labs in am to trend (4) GERD (gastroesophageal reflux disease): Plan: Continue PPI (5) Alcohol abuse: Plan: CIWAS with Benzo for Score >6 - continue thiamine - drinks usually on weekends and last drink was 2 weeks ago. Not highly suspicious for Acute ETOH Withdrawal (6) Bipolar 1 disorder: Plan: Continue Seroquel, topiramate, (7) COPD (chronic obstructive pulmonary disease): Plan: Asthma component- no PFTs on record - Continue albuterol and Trelegy Ellipta or equivalent (8) HLD (hyperlipidemia): Plan: Continue Atorvastatin Plan: plan of care to be d/w Dr. Higgins. Further orders as warranted. Admission and Anticipated Discharge Date Admission Date: August 22, 2021 Subjective Patient seen on daily rounds today. She vocalizes no significant complaints or concerns. Did have a period of what she describes as night sweats last night. She did not have a fever but felt as if she "broke a fever". She does report that the pain in her right foot seems to be slightly improved today. It is no longer a constant pain but seems to wax and wane. Still with difficulty bearing weight when it "flares". Today is the first day that she has not developed any "new lesions" in terms of the rash. She denies chest pain, shortness of breath, abdominal pain, nausea or vomiting. Review of Systems Review of Systems: All systems reviewed and are unremarkable except as noted in HPI and below Denies fevers, chills, headache, nasal congestion, sore throat, cough, chest pain, shortness of breath, palpitations, orthopnea, PND, abdominal pain, nausea, vomiting, diarrhea, constipation, dysuria, hematuria, frequency, back pain, easy bruising or bleeding Physical Exam Physical Exam: General: Resting comfortably in her hospital bed. She does not appear ill or toxic. NAD. HEENT: Head is AT/NC. Buccal mucosa is moist and pink Neck: No JVD. Negative hepatojugular reflex Cardiac: RRR without M/G/R Lungs: CTA without W/R/R Abdomen: Normoactive X4. Soft and nontender in all quadrants. Extremities: Patient with edema of the right great toe although improved compared to yesterday. Appears to have some bruising in this region. Neuro: A&O X4. Cranial nerves II through XII are grossly intact. No focal neuro deficits Skin: Multiple lesions scattered on her bilateral legs and to the buttock. These are various sizes but macular and erythematous. They do not xiomara. 2 of these lesions appear to potentially have central clearing (which today seem to have more of an obvious central clearing compared to yesterday). There are no rolled edges. Skin is flat and not palpable Psych: Appropriate affect. Pleasant and cooperative Results & Data Results & Data ([facility]) Vital Signs (Past 12 Hours) Vital Signs Temp Pulse Resp BP BP Pulse Ox 08/24/21 08:05 36.7 C 93 H 16 133/80 98 08/23/21 22:40 36.7 C 97 H 20 103/65 95 PG Care Time/CCT Total # of Minutes Spent Total Time Spent with Patient: Total time spent is greater than 50% in coordination of care (as documented) at patient's floor/unit and/or counseling patient: Coding Level of Care Code 14462 Subseq Hosp Care Lvl 2 Diagnoses Polyarticular joint involvement R29.898 Rash and nonspecific skin eruption R21 GERD (gastroesophageal reflux disease) K21.9 Alcohol abuse F10.10 Bipolar 1 disorder F31.9 COPD (chronic obstructive pulmonary disease) J44.9 COPD type: unspecified COPD HLD (hyperlipidemia) E78.5 Hyperlipidemia type: unspecified Hypokalemia E87.6 (1) COPD (chronic obstructive pulmonary disease) COPD type: unspecified COPD Qualified Code(s): J44.9 - Chronic obstructive pulmonary disease, unspecified (2) HLD (hyperlipidemia) Hyperlipidemia type: unspecified Qualified Code(s): E78.5 - Hyperlipidemia, unspecified
[2021-08-24] MEDS: traMADol HCL 50 MG TABLET PO PRN ×2 (10:42→17:18)
[2021-08-24] MEDS: ALPRAZolam 0.5 MG TABLET PO PRN ×2 (13:27→20:40)
[2021-08-24] MEDS: cefTRIAXone SODIUM 2,000 MG in DEXTROSE 5% 50 ML IV SCH (14:27)
[2021-08-24 15:23] LABS: Influenza A virus by PCR Negative (Neg); Influenza B virus by PCR Negative (Neg); RSV by PCR Negative (Neg); SARS CoV2 RNA(COVID-19) InHosp NEGATIVE (Negative)
[2021-08-24] MEDS: MONTELUKAST SODIUM 10 MG TABLET PO SCH (20:39)
[2021-08-24] MEDS: ZOLPIDEM TARTRATE 10 MG TAB PO PRN (20:40)
[2021-08-24] MEDS: TOPIRAMATE 50 MG TAB PO SCH (20:40)
[2021-08-24] MEDS: QUEtiapine FUMARATE 200 MG TAB PO SCH (20:40)
[2021-08-24] MEDS: MIRTAZAPINE TAB 15 MG TAB PO SCH (20:40)
[2021-08-25] MEDS: traMADol HCL 50 MG TABLET PO PRN ×3 (03:20→20:27)
[2021-08-25 06:31] LABS: Basophils # (auto) 0.03 K/uL (0-0.2); Basophils % (auto) 0.3 %; Eosinophils # (auto) 0.06 K/uL (0-0.5); Eosinophils % (auto) 0.7 %; Hematocrit (blood only) 37.2 % (37-47); Hemoglobin 11.5 g/dL (12.0-16.0); Immature Granulocytes # (auto) 0.06 K/uL (0.00-0.02); Immature Granulocytes % (auto) 0.7 %; Lymphocytes % (auto) 35.4 %; Mean Corpuscular Hemoglobin 28.9 pg (25-34); Mean Corpuscular Hgb Conc 30.9 g/dL (32-36); Mean Corpuscular Volume 93.5 fL (80-100); Mean Platelet Volume 9.5 fL (7.4-10.4); Monocytes # (auto) 0.56 K/uL (0.11-0.59); Monocytes % (auto) 6.4 %; Neutrophils # (auto) 4.94 K/uL (1.4-6.5); Neutrophils % (auto) 56.5 %; Platelet Count 343 K/uL (130-400); RDW Coefficient of Variation 14.7 % (11.5-14.5); Red Blood Count 3.98 M/uL (4.2-5.4); White Blood Count 8.75 K/uL (4.8-10.8)
[2021-08-25 06:57] LABS: BUN Creatinine Ratio 18.5 (10-20); Calcium 7.7 mg/dl (8.5-10.1); Creatinine Clr Calc Pharmacy 93.1 ml/min; Est GFR (African American) 95.4 ml/min; Est GFR (Non-African American) 82.3 ml/min; Potassium 3.4 mmol/L (3.5-5.1)
[2021-08-25] MEDS ORDERED: POTASSIUM CHLORIDE CRTAB 20 MEQ TABCR PO STA (07:41)
--- NOTE | 2021-08-25 07:42 | Hospitalist Progress Note ---
Date of Service August 25, 2021 Assessment & Plan (1) Polyarticular joint involvement: Plan: Patient with what appears to be alteration in joint pains - 08/21/21- started with pain/erythema and edema of the left knee and left ankle (self limiting and now resolved) - presented on 08/22 with severe pain to right foot and ankle-- now migrating to the lateral surface - exact etiology unclear but does have equivocal igm - Rheumatology consulted appreciate assistance- further labs drawn (cryoglobulins, C3, C4, Ch50, RF, CCP, serum immunoglobulins, ANCA, ANNABELLA and dsDNA) - ESR: 56, CRP: 3.39, uric acid 4.3 (although uric acid would be normal and an acute gout flare as the uric acid crystals would be elevated within the joint space, this does not seem consistent with gout as no improvement with prednisone) - skin bx obtained- pathology pending - MRI foot and ankle showing SQ edema but not other pathology - Lyme IgM has come back equivocal. Western blot pending. 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 Did reach back out to Rheumatology regarding this. Dr. Stockton recommends Solumedrol IV and with transition to PO, would convert to methylprednisolone 32mg x3 days and decreasing by 4mg Q3days until seen in FU. She is willing to see patient in followup next Wednesday @9:20 or 2:00 (2) Rash and nonspecific skin eruption: Plan: Unsure of etiology with this at this time - does not seem consistent with erythema migrans. Looks more vasculitic or consistent with multiforme? 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 Pathology pending - Appreciate Rheumatology assistance - phone consult done with dermatology (pictures sent via [employer] with patient's consent). No added recommendations as this time - Hep C negative - patient is not sexually active but G&C urine (pending). Empirically on Rocephin - not highly suspicious of HSP- UA negative. no renal involvement - ANNABELLA pending - does not appear to be classic erythema migrans but does have equivocal IgM. Now on Rocephin - continue to follow clinically (3) Hypokalemia: Plan: - supplement with FU labs in am to trend (4) GERD (gastroesophageal reflux disease): Plan: Continue PPI (5) Alcohol abuse: Plan: CIWAS with Benzo for Score >6 - continue thiamine - drinks usually on weekends and last drink was 2 weeks ago. Not highly suspicious for Acute ETOH Withdrawal (6) Bipolar 1 disorder: Plan: Continue Seroquel, topiramate, (7) COPD (chronic obstructive pulmonary disease): Plan: Asthma component- no PFTs on record - Continue albuterol and Trelegy Ellipta or equivalent (8) HLD (hyperlipidemia): Plan: Continue Atorvastatin Plan: plan of care to be d/w Dr. Higgins. Further orders as warranted. Admission and Anticipated Discharge Date Admission Date: August 22, 2021 Subjective Patient seen on daily rounds today. Overall reports of the rash is improving but she still having significant pain in her foot. Now the pain has migrated to the lateral surface of her foot. Still unable to bear weight. Still having sweats but denies fevers. Denies chest pain, shortness of breath, abdominal pain, GI/ symptomatology. Review of Systems Review of Systems: All systems reviewed and are unremarkable except as noted in HPI and below Denies fevers, chills, headache, nasal congestion, sore throat, cough, chest pain, shortness of breath, palpitations, orthopnea, PND, abdominal pain, nausea, vomiting, diarrhea, constipation, dysuria, hematuria, frequency, back pain, easy bruising or bleeding Physical Exam Physical Exam: General: Resting comfortably in her hospital bed. She does not appear ill or toxic. NAD. HEENT: Head is AT/NC. Buccal mucosa is moist and pink Neck: No JVD. Negative hepatojugular reflex Cardiac: RRR without M/G/R Lungs: CTA without W/R/R Abdomen: Normoactive X4. Soft and nontender in all quadrants. Extremities: Patient with edema of the right great toe although improved compared to yesterday. Appears to have some bruising in this region. Neuro: A&O X4. Cranial nerves II through XII are grossly intact. No focal neuro deficits Skin: Multiple lesions scattered on her bilateral legs and to the buttock. These are various sizes but macular and erythematous. These seem to be improving in terms of fading in color. They are not palpable. They do not xiomara. 2 of these lesions appear to potentially have central clearing. There are no rolled edges. Skin is flat and not palpable Psych: Appropriate affect. Pleasant and cooperative Results & Data Results & Data ([facility]) Vital Signs (Past 12 Hours) Vital Signs Temp Pulse Resp BP Pulse Ox 08/25/21 07:19 36.5 C 76 16 94/57 L 97 08/24/21 22:00 36.7 C 79 20 99/61 L 96 PG Care Time/CCT Total # of Minutes Spent Total Time Spent with Patient: Total time spent is greater than 50% in coordination of care (as documented) at patient's floor/unit and/or counseling patient: Coding Level of Care Code 38737 Subseq Hosp Care Lvl 2 Diagnoses Polyarticular joint involvement R29.898 Rash and nonspecific skin eruption R21 Hypokalemia E87.6 GERD (gastroesophageal reflux disease) K21.9 Alcohol abuse F10.10 Bipolar 1 disorder F31.9 COPD (chronic obstructive pulmonary disease) J44.9 COPD type: unspecified COPD HLD (hyperlipidemia) E78.5 Hyperlipidemia type: unspecified (1) HLD (hyperlipidemia) Hyperlipidemia type: unspecified Qualified Code(s): E78.5 - Hyperlipidemia, unspecified (2) COPD (chronic obstructive pulmonary disease) COPD type: unspecified COPD Qualified Code(s): J44.9 - Chronic obstructive pulmonary disease, unspecified
[2021-08-25] MEDS: UMECLIDINIUM/VILANTEROL 62.5/25MCG 7 PUFFS/INHALER INH SCH (08:34)
[2021-08-25] MEDS: ENOXAPARIN INJ 40 MG/0.4 ML SYR SQ SCH (08:34)
[2021-08-25] MEDS: FLUTICASONE FUROATE 100MCG 14 PUFFS/INHALER INH SCH (08:34)
[2021-08-25] MEDS: CITALOPRAM 20 MG TAB PO SCH (08:34)
[2021-08-25] MEDS: TOPIRAMATE 100 MG TAB PO SCH (08:35)
[2021-08-25] MEDS: CITALOPRAM 40 MG TAB PO SCH (08:35)
[2021-08-25] MEDS: predniSONE 20 MG TAB PO SCH (08:35)
[2021-08-25] MEDS: LOSARTAN POTASSIUM 25 MG TAB PO SCH (08:35)
[2021-08-25] MEDS: ATORVASTATIN 40 MG TAB PO SCH (08:35)
[2021-08-25] MEDS: PANTOprazole 40 MG TAB PO SCH (08:35)
[2021-08-25] MEDS: ALPRAZolam 0.5 MG TABLET PO PRN ×3 (08:38→20:28)
[2021-08-25] MEDS: THIAMINE HCL 100 MG in SYRINGE 9 ML IV SCH (09:23)
[2021-08-25] MEDS ORDERED: methylPREDNISolone 60 MG in SYRINGE 0 ML IV STA (10:50)
[2021-08-25] MEDS: cefTRIAXone SODIUM 2,000 MG in DEXTROSE 5% 50 ML IV SCH (13:14)
[2021-08-25 14:31] LABS: GC (Neis gonorrhoeae) RNA NOT DETECTED (NOT DETECTED)
[2021-08-25] MEDS: TOPIRAMATE 50 MG TAB PO SCH (20:26)
[2021-08-25] MEDS: MONTELUKAST SODIUM 10 MG TABLET PO SCH (20:26)
[2021-08-25] MEDS: QUEtiapine FUMARATE 200 MG TAB PO SCH (20:26)
[2021-08-25] MEDS: MIRTAZAPINE TAB 15 MG TAB PO SCH (20:26)
[2021-08-25] MEDS: ZOLPIDEM TARTRATE 10 MG TAB PO PRN (20:27)
[2021-08-26] MEDS: traMADol HCL 50 MG TABLET PO PRN ×4 (01:47→21:09)
[2021-08-26 06:13] LABS: Basophils # (auto) 0.03 K/uL (0-0.2); Basophils % (auto) 0.3 %; Eosinophils # (auto) 0.04 K/uL (0-0.5); Eosinophils % (auto) 0.4 %; Hemoglobin 11.8 g/dL (12.0-16.0); Immature Granulocytes # (auto) 0.08 K/uL (0.00-0.02); Immature Granulocytes % (auto) 0.7 %; Lymphocytes # (auto) 2.81 K/uL (1.2-3.4); Lymphocytes % (auto) 25.4 %; Mean Corpuscular Hemoglobin 29.5 pg (25-34); Mean Corpuscular Hgb Conc 31.9 g/dL (32-36); Mean Corpuscular Volume 92.5 fL (80-100); Mean Platelet Volume 9.8 fL (7.4-10.4); Monocytes # (auto) 0.64 K/uL (0.11-0.59); Monocytes % (auto) 5.8 %; Neutrophils # (auto) 7.46 K/uL (1.4-6.5); Neutrophils % (auto) 67.4 %; Platelet Count 368 K/uL (130-400); RDW Coefficient of Variation 14.3 % (11.5-14.5); RDW Standard Deviation 48.4 fL (36.4-46.3); White Blood Count 11.06 K/uL (4.8-10.8)
[2021-08-26 06:31] LABS: BUN Creatinine Ratio 17.2 (10-20); Calcium 8.7 mg/dl (8.5-10.1); Creatinine Clr Calc Pharmacy 86.7 ml/min; Est GFR (African American) 87.5 ml/min; Est GFR (Non-African American) 75.5 ml/min; Magnesium 2.2 mg/dl (1.7-2.4); Potassium 3.7 mmol/L (3.5-5.1)
[2021-08-26] MEDS: LOSARTAN POTASSIUM 25 MG TAB PO SCH (08:49)
[2021-08-26] MEDS: CITALOPRAM 20 MG TAB PO SCH (08:49)
[2021-08-26] MEDS: CITALOPRAM 40 MG TAB PO SCH (08:50)
[2021-08-26] MEDS: ATORVASTATIN 40 MG TAB PO SCH (08:50)
[2021-08-26] MEDS: PANTOprazole 40 MG TAB PO SCH (08:50)
[2021-08-26] MEDS: ENOXAPARIN INJ 40 MG/0.4 ML SYR SQ SCH (08:50)
[2021-08-26] MEDS: THIAMINE HCL 100 MG in SYRINGE 9 ML IV SCH (08:50)
[2021-08-26] MEDS: UMECLIDINIUM/VILANTEROL 62.5/25MCG 7 PUFFS/INHALER INH SCH (08:50)
[2021-08-26] MEDS: TOPIRAMATE 100 MG TAB PO SCH (08:50)
[2021-08-26] MEDS: methylPREDNISolone 60 MG in SYRINGE 0 ML IV SCH (08:50)
[2021-08-26] MEDS: FLUTICASONE FUROATE 100MCG 14 PUFFS/INHALER INH SCH (08:50)
[2021-08-26] MEDS ORDERED: COLCHICINE 0.6 MG TAB PO ONE ×2 (09:09→10:30)
--- NOTE | 2021-08-26 09:47 | Hospitalist Progress Note ---
Date of Service August 26, 2021 Assessment & Plan (1) Polyarticular joint involvement: Plan: Patient with what appears to be alteration in joint pains - 08/21/21- started with pain/erythema and edema of the left knee and left ankle (self limiting and now resolved) - presented on 08/22 with severe pain to right foot and ankle-- now migrating to the lateral surface - exact etiology unclear but does have equivocal igm - Rheumatology consulted appreciate assistance- further labs drawn (cryoglobulins, C3, C4, Ch50, RF, CCP, serum immunoglobulins, ANCA, ANNABELLA and dsDNA) - ESR: 56, CRP: 3.39, uric acid 4.3 (although uric acid would be normal and an acute gout flare as the uric acid crystals would be elevated within the joint space, this does not seem consistent with gout as no improvement with prednisone) - skin bx obtained- pathology pending - MRI foot and ankle showing SQ edema but not other pathology - Lyme IgM has come back equivocal. Western blot pending. Empirically on Rocephin upfront to cover for Lyme and disseminated gonococcal disease but this has since come back negative. Transition to oral doxycycline --If Western blot comes back positive, will need 21 days of treatment. If negative, can discontinue Doxy - has been on prednisone but with persistent pain and inability to WB-- dose increased. Did reach back out to Rheumatology regarding this. Dr. Stockton recommends Solumedrol IV and with transition to PO, would convert to methylprednisolone 32mg x3 days and decreasing by 4mg Q3days until seen in FU. She is willing to see patient in followup next Wednesday @9:20 or 2:00 - despite increased steroid dose, patient vocalizes no change in symptomatology; however, objectively I do see improvement. There is not nearly as much edema. The petechial lesions on the medial surface of the great toe have resolved. There does seem to be mild edema on the top of the foot but this could be from gravitational pull from migration of edema from the toe - I had a loss in terms of how to improve her joint pain. Will order a dose of colchicine although again, does not seem classic pain from gout or pseudogout. I have reached out to orthopedics again to ask for guidance. Awaiting recommendations. - Patient still unable to bear weight. Cannot discharge her with the inability to bear weight (2) Rash and nonspecific skin eruption: Plan: Unsure of etiology with this at this time - did not seem consistent with erythema migrans. Looks more vasculitic or consistent with multiforme? 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 Consistent with leukocytoclastic vasculitis - Appreciate Rheumatology assistance - phone consult done with dermatology (pictures sent via [employer] with patient's consent). No added recommendations as this time - Hep C negative - patient is not sexually active but G&C urine obtained and empirically on Rocephin--gonorrhea: Negative - not highly suspicious of HSP- UA negative. no renal involvement. At any rate, Tx for HSP is steroids (for which she is already on) - ANNABELLA pending - rash improving (3) Hypokalemia: Plan: - replaced/resolved (4) GERD (gastroesophageal reflux disease): Plan: Continue PPI (5) Alcohol abuse: Plan: CIWAS with Benzo for Score >6 - continue thiamine - drinks usually on weekends and last drink was 2 weeks ago. Not highly suspicious for Acute ETOH Withdrawal (6) Bipolar 1 disorder: Plan: Continue Seroquel, topiramate, (7) COPD (chronic obstructive pulmonary disease): Plan: Asthma component- no PFTs on record - Continue albuterol and Trelegy Ellipta or equivalent (8) HLD (hyperlipidemia): Plan: Continue Atorvastatin Plan: plan of care to be d/w Dr. Everett. Further orders as warranted. Interestingly enough, was notified by case management that patient reached out to her insurance company to appeal her discharge. She has not been discharged and there has been no discussion of discharge as she still cannot bear weight. I am uncertain what to make of this. At any rate, I was asked to consult PT/OT regarding discharge needs. I will hold off on this as patient still unable to bear weight. Would be an adequate assessment at this time. Admission and Anticipated Discharge Date Admission Date: August 22, 2021 Subjective Patient seen on daily rounds today. Reports no change in the pain in her foot. Still unable to WB. Still c/o night sweats but no fevers. Review of Systems Review of Systems: All systems reviewed and are unremarkable except as noted in HPI and below Denies fevers, chills, headache, nasal congestion, sore throat, cough, chest pain, shortness of breath, palpitations, orthopnea, PND, abdominal pain, nausea, vomiting, diarrhea, constipation, dysuria, hematuria, frequency, back pain, easy bruising or bleeding Physical Exam Physical Exam: General: Resting comfortably in her hospital bed. She does not appear ill or toxic. NAD. HEENT: Head is AT/NC. Buccal mucosa is moist and pink Neck: No JVD. Negative hepatojugular reflex Cardiac: RRR without M/G/R Lungs: CTA without W/R/R Abdomen: Normoactive X4. Soft and nontender in all quadrants. Extremities: Although patient reports worsening edema and increasing pain, the toe has no residual edema or erythema. She does have more dependent edema on the top of her foot and laterally but this is also improved compared to yesterda y. The petechial lesions on the medial surface of the toe have nearly faded/resolved. Neuro: A&O X4. Cranial nerves II through XII are grossly intact. No focal neuro deficits Skin: Multiple lesions scattered on her bilateral legs and to the buttock. These are various sizes but macular and erythematous. These seem to be improving in terms of fading in color. no new lesions. Psych: Appropriate affect. Pleasant and cooperative Results & Data Results & Data ([facility]) Vital Signs (Past 12 Hours) Vital Signs Temp Pulse Pulse Resp BP BP Pulse Ox 08/26/21 07:55 36.6 C 98 H 20 134/80 97 08/25/21 23:50 36.5 C 83 18 101/55 L 96 08/25/21 21:48 90 20 95 Laboratory Results 08/26/21 05:33 08/26/21 05:33 PG Care Time/CCT Total # of Minutes Spent Total Time Spent with Patient: Total time spent is greater than 50% in coordination of care (as documented) at patient's floor/unit and/or counseling patient: Coding Level of Care Code 76669 Subseq Hosp Care Lvl 2 Diagnoses Polyarticular joint involvement R29.898 Rash and nonspecific skin eruption R21 Hypokalemia E87.6 GERD (gastroesophageal reflux disease) K21.9 Alcohol abuse F10.10 Bipolar 1 disorder F31.9 COPD (chronic obstructive pulmonary disease) J44.9 COPD type: unspecified COPD HLD (hyperlipidemia) E78.5 Hyperlipidemia type: unspecified (1) HLD (hyperlipidemia) Hyperlipidemia type: unspecified Qualified Code(s): E78.5 - Hyperlipidemia, unspecified (2) COPD (chronic obstructive pulmonary disease) COPD type: unspecified COPD Qualified Code(s): J44.9 - Chronic obstructive pulmonary disease, unspecified
[2021-08-26] MEDS: cefTRIAXone SODIUM 2,000 MG in DEXTROSE 5% 50 ML IV SCH (12:57)
[2021-08-26] MEDS: ALPRAZolam 0.5 MG TABLET PO PRN ×2 (13:01→21:10)
[2021-08-26] MEDS: MONTELUKAST SODIUM 10 MG TABLET PO SCH (21:08)
[2021-08-26] MEDS: QUEtiapine FUMARATE 200 MG TAB PO SCH (21:08)
[2021-08-26] MEDS: TOPIRAMATE 50 MG TAB PO SCH (21:08)
[2021-08-26] MEDS: MIRTAZAPINE TAB 15 MG TAB PO SCH (21:08)
[2021-08-26] MEDS: DOXYCYCLINE HYCLATE 100 MG CAP PO SCH (21:09)
[2021-08-26] MEDS: ZOLPIDEM TARTRATE 10 MG TAB PO PRN (21:09)
[2021-08-27 01:32] LABS: 18KDIGG Band NON-REACTIVE; 23KDIGG Band NON-REACTIVE; 23KDIGM Band NON-REACTIVE; 28KDIGG Band NON-REACTIVE; 30KDIGG Band NON-REACTIVE; 39KDIGG Band NON-REACTIVE; 39KDIGM Band NON-REACTIVE; 41KDIGG Band NON-REACTIVE; 41KDIGM Band NON-REACTIVE; 45KDIGG Band NON-REACTIVE; 58KDIGG Band NON-REACTIVE; 66KDIGG Band NON-REACTIVE; 93KDIGG Band NON-REACTIVE; Lyme Antibodies, WB IgG NEGATIVE (NEGATIVE); Lyme Antibodies, WB IgM NEGATIVE (NEGATIVE)
[2021-08-27] MEDS: ALPRAZolam 0.5 MG TABLET PO PRN ×3 (05:48→20:24)
[2021-08-27] MEDS: traMADol HCL 50 MG TABLET PO PRN ×3 (05:48→20:23)
[2021-08-27] MEDS: ATORVASTATIN 40 MG TAB PO SCH (09:07)
[2021-08-27] MEDS: CITALOPRAM 40 MG TAB PO SCH (09:07)
[2021-08-27] MEDS: CITALOPRAM 20 MG TAB PO SCH (09:07)
[2021-08-27] MEDS: DOXYCYCLINE HYCLATE 100 MG CAP PO SCH (09:08)
[2021-08-27] MEDS: FLUTICASONE FUROATE 100MCG 14 PUFFS/INHALER INH SCH (09:08)
[2021-08-27] MEDS: UMECLIDINIUM/VILANTEROL 62.5/25MCG 7 PUFFS/INHALER INH SCH (09:09)
[2021-08-27] MEDS: LOSARTAN POTASSIUM 25 MG TAB PO SCH (09:09)
[2021-08-27] MEDS: PANTOprazole 40 MG TAB PO SCH (09:10)
[2021-08-27] MEDS: TOPIRAMATE 100 MG TAB PO SCH (09:10)
[2021-08-27] MEDS: ENOXAPARIN INJ 40 MG/0.4 ML SYR SQ SCH (09:11)
[2021-08-27] MEDS: methylPREDNISolone 60 MG in SYRINGE 0 ML IV SCH (09:11)
[2021-08-27] MEDS: THIAMINE HCL 100 MG in SYRINGE 9 ML IV SCH (09:12)
[2021-08-27] MEDS: DICLOFENAC SOD 1% GEL 100 GM TUBE EXT SCH ×3 (13:12→20:16)
--- NOTE | 2021-08-27 13:22 | Hospitalist Progress Note ---
Date of Service August 27, 2021 Assessment & Plan (1) Polyarticular joint involvement: Plan: Patient with what appears to be alteration in joint pains - 08/21/21- started with pain/erythema and edema of the left knee and left ankle (self limiting and now resolved) - presented on 08/22 with severe pain to right foot and ankle-- now migrating to the lateral surface - exact etiology unclear - Rheumatology consulted appreciate assistance- further labs drawn (cryoglobuli ns, C3, C4, Ch50, RF, CCP, serum immunoglobulins, ANCA, ANNABELLA and dsDNA--> all pending) - ESR: 56, CRP: 3.39, uric acid 4.3 (although uric acid would be normal and an acute gout flare as the uric acid crystals would be elevated within the joint space, this does not seem consistent with gout as no improvement with prednisone) - skin bx obtained- leukocytoclastic vasculitis - MRI foot and ankle showing SQ edema but not other pathology - Lyme IgM back equivocal. was empirically tx with Rocephin (initially to cover for disseminated gonococcal disease) but transitioned to doxycycline once gonorrhea negative --Western blot has come back negative for Lyme IgM/IgG. Stop doxycycline - has been on prednisone but with persistent pain and inability to WB-- dose increased. Did reach back out to Rheumatology regarding this. Dr. Stockton recommends Solumedrol IV and with transition to PO, would convert to methylprednisolone 32mg x3 days and decreasing by 4mg Q3days until seen in FU. She is willing to see patient in followup next Wednesday @9:20 or 2:00 - Lack of response for which colchicine given. - Case D/W x2 with Ortho. ? discoid Lupus. No added Orthopedic recommendations - Slow but subtle improvement in joint pain. Rash improving - continue steroids at present dose with down-titration as outlined above and FU with Rheumatology - add Topical Voltaren gel and orthopedic boot along with crutches/walker to help with ambulation -will need to follow up wi Rheumatology as exact etiology remains unclear - plan for hopeful D/C tomorrow (2) Rash and nonspecific skin eruption: Plan: Unsure of etiology with this at this time - punch biopsy obtained. Consistent with leukocytoclastic vasculitis - Appreciate Rheumatology assistance - phone consult done with dermatology (pictures sent via [employer] with patient's consent). No added recommendations as this time - Hep C negative - patient is not sexually active but G&C urine obtained and empirically on Rocephin upfront--gonorrhea: Negative. Abx stopped - not highly suspicious of HSP- UA negative. no renal involvement. At any rate, Tx for HSP is steroids (for which she is already on) - ANNABELLA pending - rash improving (3) Hemorrhoids: Plan: - 08/27 developed BRBPR (h/o this in the past) - UTD with c.scope (done <10 years ago and WNL per patient) - exam showing internal and external hemorrhoids- likely a results of previous 5 pregnancies (4 vaginal deliveries) and recent struggle to have a BM - in addition, bleeding exacerbated by lovenox (hold subsequent doses of this) - H/H has remained stable - Rx: anusol Suppositories - will need to FU with GI as OP (4) Hypokalemia: Plan: - replaced/resolved (5) GERD (gastroesophageal reflux disease): Plan: Continue PPI (6) Alcohol abuse: Plan: CIWAS with Benzo for Score >6 - continue thiamine - drinks usually on weekends and last drink was 2.5 weeks ago. Not highly suspicious for Acute ETOH Withdrawal (7) Bipolar 1 disorder: Plan: Continue Seroquel, topiramate, (8) COPD (chronic obstructive pulmonary disease): Plan: Asthma component- no PFTs on record - Continue albuterol and Trelegy Ellipta or equivalent (9) HLD (hyperlipidemia): Plan: Continue Atorvastatin Plan: plan of care to be d/w Dr. Everett. Further orders as warranted. Admission and Anticipated Discharge Date Admission Date: August 22, 2021 Subjective Patient seen on daily rounds today. Overall reports the pain in her right foot is persistent but somewhat improved. Still having difficulty weightbearing and ambulating. Rash continues to improve. Denies fevers, chills, chest pain, shortness of breath, abdominal pain, nausea or vomiting. Called back to reassess the patient later in the afternoon as she had experienced an episode of BRBPR. The notes no known history of hemorrhoids but has had episodes of bright red bleeding in the past. Occasionally will pass clots. No rectal pain, burning or pruritus. Has been straining recently to have bowel movements Review of Systems Review of Systems: All systems reviewed and are unremarkable except as noted in HPI and below Denies fevers, chills, headache, nasal congestion, sore throat, cough, chest pain, shortness of breath, palpitations, orthopnea, PND, abdominal pain, nausea, vomiting, diarrhea, dysuria, hematuria, frequency, back pain, joint pain or swelling, easy bruising Physical Exam Physical Exam: General: Resting comfortably in her hospital bed. She does not appear ill or toxic. NAD. HEENT: Head is AT/NC. Buccal mucosa is moist and pink Neck: No JVD. Negative hepatojugular reflex Cardiac: RRR without M/G/R Lungs: CTA without W/R/R Abdomen: Normoactive X4. Soft and nontender in all quadrants. Rectal exam: External hemorrhoids circumferentially around the anus. Hemorrhoids are not thrombosed. Also has an internal hemorrhoid at 6:00 that when she strains, oozes blood. No tenderness. Extremities: Although patient reports worsening edema and increasing pain, the toe has no residual edema or erythema. She does have more dependent edema on the top of her foot and laterally but this is also improved compared to yesterday. The petechial lesions on the medial surface of the toe have nearly faded/resolved. Neuro: A&O X4. Cranial nerves II through XII are grossly intact. No focal neuro deficits Skin: Multiple lesions scattered on her bilateral legs and to the buttock. These are various sizes but macular and erythematous. These seem to be improving in terms of fading in color. no new lesions. Psych: Appropriate affect. Pleasant and cooperative Results & Data Results & Data ([facility]) Vital Signs (Past 12 Hours) Vital Signs Temp Pulse Pulse Resp BP BP Pulse Ox 08/27/21 09:06 113/75 08/27/21 07:59 36.5 C 77 16 101/70 97 08/27/21 03:07 79 13 95 Laboratory Results 08/26/21 05:33 08/26/21 05:33 PG Care Time/CCT Total # of Minutes Spent Total Time Spent with Patient: Total time spent is greater than 50% in coordination of care (as documented) at patient's floor/unit and/or counseling patient: Coding Level of Care Code 95013 Subseq Hosp Care Lvl 3 Diagnoses Polyarticular joint involvement R29.898 Rash and nonspecific skin eruption R21 Hypokalemia E87.6 GERD (gastroesophageal reflux disease) K21.9 Alcohol abuse F10.10 Bipolar 1 disorder F31.9 COPD (chronic obstructive pulmonary disease) J44.9 COPD type: unspecified COPD HLD (hyperlipidemia) E78.5 Hyperlipidemia type: unspecified Hemorrhoids K64.9 (1) COPD (chronic obstructive pulmonary disease) COPD type: unspecified COPD Qualified Code(s): J44.9 - Chronic obstructive pulmonary disease, unspecified (2) HLD (hyperlipidemia) Hyperlipidemia type: unspecified Qualified Code(s): E78.5 - Hyperlipidemia, unspecified
[2021-08-27] MEDS: HYDROCORTISONE ACETATE 25 MG SUPP PR SCH ×2 (14:43→20:16)
[2021-08-27] MEDS: TOPIRAMATE 50 MG TAB PO SCH (20:16)
[2021-08-27] MEDS: DOCUSATE SODIUM 100 MG CAP PO SCH (20:16)
[2021-08-27] MEDS: MONTELUKAST SODIUM 10 MG TABLET PO SCH (20:16)
[2021-08-27] MEDS: MIRTAZAPINE TAB 15 MG TAB PO SCH (20:16)
[2021-08-27] MEDS: QUEtiapine FUMARATE 200 MG TAB PO SCH (20:40)
[2021-08-28] MEDS: ALPRAZolam 0.5 MG TABLET PO PRN ×2 (03:11→14:20)
[2021-08-28] MEDS: CITALOPRAM 20 MG TAB PO SCH (09:07)
[2021-08-28] MEDS: DICLOFENAC SOD 1% GEL 100 GM TUBE EXT SCH ×3 (09:07→18:15)
[2021-08-28] MEDS: ATORVASTATIN 40 MG TAB PO SCH (09:07)
[2021-08-28] MEDS: DOCUSATE SODIUM 100 MG CAP PO SCH (09:07)
[2021-08-28] MEDS: CITALOPRAM 40 MG TAB PO SCH (09:07)
[2021-08-28] MEDS: UMECLIDINIUM/VILANTEROL 62.5/25MCG 7 PUFFS/INHALER INH SCH (09:07)
[2021-08-28] MEDS: FLUTICASONE FUROATE 100MCG 14 PUFFS/INHALER INH SCH (09:08)
[2021-08-28] MEDS: methylPREDNISolone 60 MG in SYRINGE 0 ML IV SCH (09:08)
[2021-08-28] MEDS: HYDROCORTISONE ACETATE 25 MG SUPP PR SCH (09:09)
[2021-08-28] MEDS: THIAMINE HCL 100 MG in SYRINGE 9 ML IV SCH (09:09)
[2021-08-28] MEDS: LOSARTAN POTASSIUM 25 MG TAB PO SCH (09:09)
[2021-08-28] MEDS: traMADol HCL 50 MG TABLET PO PRN ×2 (09:09→15:12)
[2021-08-28] MEDS: TOPIRAMATE 100 MG TAB PO SCH (09:09)
[2021-08-28] MEDS: PANTOprazole 40 MG TAB PO SCH (09:09)
[2021-08-28 09:50] LABS: Basophils # (auto) 0.03 K/uL (0-0.2); Basophils % (auto) 0.3 %; Eosinophils % (auto) 0.8 %; Hemoglobin 12.8 g/dL (12.0-16.0); Immature Granulocytes % (auto) 0.8 %; Lymphocytes % (auto) 32.9 %; Mean Corpuscular Hemoglobin 29.3 pg (25-34); Mean Corpuscular Volume 91.5 fL (80-100); Mean Platelet Volume 9.5 fL (7.4-10.4); Monocytes # (auto) 0.58 K/uL (0.11-0.59); Monocytes % (auto) 4.9 %; Neutrophils # (auto) 7.13 K/uL (1.4-6.5); Neutrophils % (auto) 60.3 %; Platelet Count 399 K/uL (130-400); RDW Coefficient of Variation 14.4 % (11.5-14.5); RDW Standard Deviation 48.6 fL (36.4-46.3); Red Blood Count 4.37 M/uL (4.2-5.4); White Blood Count 11.84 K/uL (4.8-10.8)
[2021-08-28 10:11] LABS: BUN Creatinine Ratio 17.8 (10-20); Calcium 8.5 mg/dl (8.5-10.1); Creatinine Clr Calc Pharmacy 83.8 ml/min; Est GFR (Non-African American) 72.5 ml/min; Potassium 3.2 mmol/L (3.5-5.1)
[2021-08-28] MEDS ORDERED: NEOMYCIN/POLYMYX/BACITR OINT 15 GM TUBE EXT SCH (11:00)
--- NOTE | 2021-08-28 15:24 | Discharge Summary ---
Date of Service August 28, 2021 Admission HPI Per Admitting Provider 56 YOF with past medical history: COPD, HTN, HLD, Bipolar I, Lt knee pain, Asthma, Insomnia, GERD, Bee sting allergy (carries epi-pen), ETOH abuse. Patient comes to the [facility] today following evaluation at [facility]SH yesterday for left knee pain and swelling- she reports being given dose of antibiotic and discharged. She did not machine pecan picker this prescription or take any further doses. Today she comes to the [facility] for complaints of pain to her right foot and new onset rash. This occurred at ~0300 this morning where she felt like her right foot was on fire- she was unable to bear weight on this. She then noticed a rash that occurs on both of her legs and ends around her umbilicus, her buttocks, sparing the rest of the trunk, arms, face. In the EMD she had routine labs performed to include ESr, CRP, PCT and D-dimer. Her D-dimer was elevated to 6350- she then received CT scan of the chest and bilateral lower Doppler scans that were both negative for VTE/PE. She was given 1 dose of Rocephin 2GM for concern of cellulitis of the right foot and 60mg IV Methylpred. Hospitalist service was consulted for evaluation: The patient right foot is warm with good pulses, but has erythema along the first toe through the metatarsal. There is some surrounding edema, she has pain through the majority of her plantar section of her foot as well as the superior part of her foot. She has decreased ROM with her toes as well as pain with flexion and extension along both superior and plantar surfaces. This is localized to this area only. She has round, macular rash, non painful, non-blanching, reddish in color without purpura, ecchymosis appearing to inside of her right foot, it is not circumferential and not on the soles of foot or palms of hands. This has not been associated with any fevers, further ulcerations in mouth or other areas of skin, she has not had any pulmonary complaints, and her CTA of her chest is unremarkable. Patient COVID test is: NEGATIVE Principal Diagnosis 1. 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 Right foot painsecondary to #1 3. Rashleukocytoclastic vasculitis. Likely related to underlying rheumatological issue. Exact etiology unclear 4. Bleeding hemorrhoids 5. Hypokalemiareplaced and resolved Discharge Exam General: Resting comfortably in her hospital bed. She does not appear ill or toxic. NAD. HEENT: Head is AT/NC. Buccal mucosa is moist and pink Neck: No JVD. Negative hepatojugular reflex Cardiac: RRR without M/G/R Lungs: CTA without W/R/R Abdomen: Normoactive X4. Soft and nontender in all quadrants. Rectal exam: rectal exam done 08/27: External hemorrhoids circumferentially around the anus. Hemorrhoids are not thrombosed. Also has an internal hemorrhoid at 6:00 that when she strains, oozes blood. No tenderness. Extremities: Still with subtle edema on top of the foot but otherwise, significant improvement in edema. No longer with edema of the toe. The medial petechiae has resolved. Still with mild edema on top of the foot but otherwise, significant overall improvement Neuro: A&O X4. Cranial nerves II through XII are grossly intact. No focal neuro deficits Skin: Multiple lesions scattered on her bilateral legs and to the buttock. These are various sizes but macular and erythematous. No new lesions. Lesions have nearly faded. Nonpalpable. Nonblanchable. Psych: Appropriate affect. Pleasant and cooperative Discharge Data Allergies Allergy/AdvReac Type Severity Reaction Status Date / Time aspirin Allergy Unknown UNKNOWN Unverified 08/22/21 12:23 bee venom protein (honey bee) Allergy Unknown UNKNOWN Unverified 08/22/21 12:23 Cipro Allergy Unknown UNKNOWN Unverified 03/24/17 21:04 ciprofloxacin [Cipro] Allergy Unknown UNKNOWN Unverified 08/22/21 12:23 propoxyphene Allergy Unknown UNKNOWN Unverified 08/22/21 12:23 Consultations 08/22/21 14:36 ED Decision to Admit Stat 08/22/21 15:54 Consult Rheumatology Routine Assessment & Plan (1) Rash and nonspecific skin eruption: Appears consistent with an LCV rash which can be from drug reaction vs infection (2) Polyarticular joint involvement: concerning for either infectious (reactive)vs crystalline arthropathy vs systemic. Uric acid can be low in an acute flare 1. Agree with checking hepatitis C status -- returned negative 2. Please consider checking the following labs: cryoglobulins, C3, C4, Ch50, RF, CCP, serum immunoglobulins, ANCA, ANNABELLA and dsDNA. Please obtain urinalysis 3. Treat with steroids as you are with plan to taper (40mg IV tomorrow, then 40 mg daily for 3 days then decrease by 10 mg every 3 days 4. Can consult dermatology to biopsy rash Ordered Studies 08/22/21 10:24 US venous doppler LE BI Stat IMPRESSION: No DVT within the right or left lower extremity. 08/22/21 12:29 CT angio chest PE protocol Stat IMPRESSION: 1. Cardiomegaly without acute intrathoracic abnormality. 2. No pulmonary emboli. 3. Bronchial wall thickening redemonstrated which may represent bronchitis versus reactive airway disease. 4. Hepatic steatosis. 08/22/21 14:51 MR ankle RT wo con Routine MR foot RT w/o con Routine IMPRESSION: 1. Moderate subcutaneous edema, most pronounced dorsally. Findings may be secondary to cellulitis, venous stasis or lymphedema. No abscess. 2. No acute fracture or bony erosion. 3. No acute ligamentous or tendinous injury identified. Hospital Course (1) Polyarticular joint involvement: Patient with what appears to be alteration in joint pains - 08/21/21- started with pain/erythema and edema of the left knee and left ankle (self limiting and now resolved) - presented on 08/22 with severe pain to right foot and ankle-- now migrating to the lateral surface - exact etiology unclear - Rheumatology consulted appreciate assistance- further labs drawn (cryoglobulins, C3, C4, Ch50, RF, CCP, serum immunoglobulins, ANCA, ANNABELLA and dsDNA--> all pending) - ESR: 56, CRP: 3.39, uric acid 4.3 (although uric acid would be normal and an acute gout flare as the uric acid crystals would be elevated within the joint space, this does not seem consistent with gout as no improvement with prednisone) - skin bx obtained- leukocytoclastic vasculitis - MRI foot and ankle showing SQ edema but not other acute pathology - Lyme IgM back equivocal. was empirically tx with Rocephin (initially to cover for disseminated gonococcal disease) but transitioned to doxycycline once gonorrhea negative --Western blot has come back negative for Lyme IgM/IgG. Doxycycline stopped - had been on prednisone but with persistent pain and inability to WB-- dose increased. Did reach back out to Rheumatology regarding this. Dr. Stockton recommends Solumedrol IV and with transition to PO, will convert to methylprednisolone 32mg x3 days and decreasing by 4mg Q3days until seen in FU. She is willing to see patient in followup next Wednesday @9:20 or 2:00 - Lack of response for which colchicine given. - Case D/W x2 with Ortho. ? discoid Lupus. No added Orthopedic recommendations - Slow but subtle improvement in joint pain. Rash improving - Still awaiting PT eval and treat; however, I personally walked patient. She was able to ambulate independently with her wheeled walker. She does have pain in the foot but she is able to bear weight and ambulate - continue steroids at present dose with down-titration as outlined above and FU with Rheumatology -Continue Voltaren gel topically and Ultram as needed for pain -will need to follow up with Rheumatology as exact etiology remains unclear (2) Rash and nonspecific skin eruption: Unsure of etiology with this at this time - punch biopsy obtained. Consistent with leukocytoclastic vasculitis --Site of punch biopsy is well approximated. There is a scab. 2 sutures removed today. Patient tolerated the procedure. Little bit of bleeding but no dehiscence. --Encouraged to continue triple antibiotic ointment to this area. Cover with gauze. Do not pick at the scab. Let open to air at night. Can keep clean with soap and water. Pat dry. - Appreciate Rheumatology assistance - phone consult done with dermatology (pictures sent via [employer] with patient's consent). No added recommendations as this time - Hep C negative - patient is not sexually active but G&C urine obtained and empirically on Rocephin upfront--gonorrhea: Negative. Abx stopped - not highly suspicious of HSP- UA negative. no renal involvement. At any rate, Tx for HSP is steroids (for which she is already on) - ANNABELLA pending - rash improving (3) Hemorrhoids: - 08/27 developed BRBPR (h/o this in the past) - UTD with c.scope (done <10 years ago and WNL per patient) - exam showing internal and external hemorrhoids- likely a results of previous 5 pregnancies (4 vaginal deliveries) and recent struggle to have a BM - in addition, bleeding exacerbated by lovenox (hold subsequent doses of this) - H/H has remained stable - Rx: anusol Suppositories - Bleeding has since stopped. Behavioral modifications discussed (which include avoiding straining to have a BM, sitz bath's, Tucks wipes/which diana) - consider GI FU as OP (4) Hypokalemia: - replaced/resolved (5) GERD (gastroesophageal reflux disease): Continue PPI (6) Alcohol abuse: CIWAS with Benzo for Score >6 - continue thiamine - drinks usually on weekends and last drink was 2.5 weeks ago. Not highly suspicious for Acute ETOH Withdrawal (7) Bipolar 1 disorder: Continue Seroquel, topiramate, (8) COPD (chronic obstructive pulmonary disease): Asthma component- no PFTs on record - Continue albuterol and Trelegy Ellipta or equivalent (9) HLD (hyperlipidemia): Continue Atorvastatin plan of care to be d/w Dr. Everett. Further orders as warranted. Total Time Total Time Spent Total Time Spent (In Minutes): 45 minutes including time spent with patient, ambulating patient, discussion with case management to get wheeled walker set up, preparation of documentation, discussion with attending provider, removal of sutures. Discharge Plan Discharge Items Patient Disposition: Home - Self-Care Reason For Visit: LEGS SWOLLEN, ELBOW SWOLLEN Discharge Diagnosis: 1. Migratory polyarthritisexact etiology unclear 2. Lymphocytic classic vasculitis 3. Ambulatory dysfunction given right foot pain 4. Bleeding hemorrhoids 5. Hypokalemiareplaced and resolved Activity: Resume your previous activity Activity Comment: Weightbearing as tolerated Non-emergency contact: Primary Care Provider and Specialist Call non-emergency contact if: you have any medication questions Follow-up/Referrals: Georgette Stockton MD, PhD [Physician] - 09/11/21 8:45 am (This appointment will be with Dr. Stockton's DANA, Shiloh Cramer.) Marilu Kunz PA-C [Primary Care Provider] - 09/01/21 9:30 am Diet: Regular Addtl Attending Provider Instructions: You presented to the emergency department with migratory joint issues (started in the left knee and left elbow but migrated into the right footincluding the toe, ankle, and top of the foot). In addition, you had a rash of unknown etiology You had an extensive work-up. It was initially thought that this was all secondary to Lyme disease as you are IgM came back equivocal (not positive but not negative). You were empirically treated with antibiotics but your Western blot (confirmatory test) has since come back negative as discussed. Antibiotics stopped In addition, you were treated with high doses of steroids. Ultimately, your pain has improved but not resolved. The exact etiology remains unclear. It definitely seems consistent with something rheumatological. We have ruled out multiple disease processes but further work-up and evaluation is recommended. Your case was discussed by multiple specialists (including orthopedic surgery) and it does not seem that this is something orthopedic related but more rheumatological. In addition, you had a normal MRI and a negative venous ultrasound showing no blood clot. You will be discharged on a continued tapering course of prednisone. Start tomorrow taking 4 tablets by mouth daily. Decrease by 1/2 tablet every 3 days: --4 tablets by mouth daily X 3 days --3.5 tablets by mouth daily X 3 days --3 tablets by mouth daily X 3 days --2.5 tablets by mouth daily X 3 days --2 tablets by mouth daily X 3 days --1.5 tablet by mouth daily X 3 days --1 tablet by mouth daily X 3 days --0.5 (one-half) tablet by mouth daily X 3 days follow-up with rheumatology as scheduled. An appointment was scheduled for next Wednesday but given your inability to make this appointment, it was rescheduled for the following Wednesday. In addition, you may continue to utilize the Voltaren gel topically and oral Ultram as needed for pain Use the boot as needed and weight-bear as tolerated. Ambulate using the walker as needed The spot on your leg that was taken for biopsy, wash with soap and water. Pat dry. Do not pick the scab. Apply triple antibiotic ointment daily and cover with gauze during the day. Let open to air at night. While in the hospital, you had a flareup of your hemorrhoids for which Anusol suppositories were prescribed. Use these twice daily for total of 7 days (started 08/27). Follow-up with PCP within 7 to 10 days Pending Studies at Discharge: Yes Studies:: ANNABELLA, cryoglobulins, C3, C4, CH 50, rheumatoid factor, CCP, serum immunoglobulins, ANCA, dsDNA Stand-Alone Forms: [facility] [employer]weet, Smoking Cessation Medications and NM Order Prescriptions: New tramadol 50 mg Tablet 50 mg PO Q6H PRN (Reason: pain) Qty: 30 RF: 0 hydrocortisone acetate [Anucort-HC] 25 mg Suppository 25 mg HI BID Qty: 12 RF: 0 diclofenac sodium [Voltaren Arthritis Pain] 1 % Gel 2 g EXT QID Qty: 100 RF: 0 methylprednisolone 8 mg tablet 8 mg PO DIRECTED Qty: 60 RF: 0 Continued losartan 25 mg Tablet 25 mg PO DAILY RF: 0 pantoprazole [Protonix] 20 mg Tablet,Delayed Release (Dr/Ec) 20 mg PO DAILY RF: 0 atorvastatin 40 mg Tablet 40 mg PO DAILY RF: 0 albuterol sulfate 90 mcg/actuation Hfa Aerosol Inhaler 2 puff INHALATION QID PRN (Reason: Shortness Of Breath Or Wheezing) RF: 0 epinephrine 0.3 mg/0.3 mL Auto-Injector 0.3 mg IM Q4H PRN (Reason: Allergic Reaction) RF: 0 montelukast [Singulair] 10 mg Tablet 10 mg PO PM RF: 0 mirtazapine 30 mg Tablet 30 mg PO HS RF: 0 citalopram 10 mg Tablet 10 mg PO QAM RF: 0 alprazolam 1 mg Tablet 1 mg PO QID PRN (Reason: Anxiety) RF: 0 topiramate 100 mg Tablet 100 mg PO QAM RF: 0 zolpidem 10 mg Tablet 10 mg PO HS PRN (Reason: Insomnia) RF: 0 quetiapine [Seroquel] 400 mg Tablet 400 mg PO QPM RF: 0 citalopram 40 mg Tablet 40 mg PO QAM RF: 0 ergocalciferol (vitamin D2) 1,250 mcg (50,000 unit) capsule 50,000 unit PO WK RF: 0 folic acid 800 mcg tablet 800 mg PO DIRECTED RF: 0 thiamine mononitrate (vit B1) 100 mg Tablet 100 mg PO BID RF: 0 Nucala 100 mg/mL Auto-Injector 0 mg SUBCUT MONTHLY RF: 0 Trelegy Ellipta 200-62.5-25 mcg blister with device 1 inh INHALATION DAILY RF: 0 topiramate 100 mg tablet 150 mg PO QPM RF: 0 Discharge Orders: Discharge Order (Routine); Ordered 08/28/21 Ordered By: Mary Michel Admission Data Admit Date/Time: 08/22/21 15:54 Attending Provider: Malcom Everett Admit Provider: Yulia Ray Primary Care Provider: Marilu Kunz Other Providers: Georgette Stockton I. ; Yulia Ray Other Interventions: Discharge Summary Assessment (RN) Last Done: 08/28/21 16:24 Supervising Physician Co-Signing Physician Notes Patient seen and examined at bedside. During face to face encounter, discussed with patient, hospital stay, discharge planning and performed a physical exam. I discussed discharge plan with Mary Michel. I reviewed above note and agree with it. Patient was admitted for polyarticular joint pain. Exact etiology unknown. Continue steroids Coding Level of Care Code D/C DAY MANAGEMENT >30 MINS Diagnoses Polyarticular joint involvement R29.898 Rash and nonspecific skin eruption R21 Hemorrhoids K64.9 Hypokalemia E87.6 GERD (gastroesophageal reflux disease) K21.9 Alcohol abuse F10.10 Bipolar 1 disorder F31.9 COPD (chronic obstructive pulmonary disease) J44.9 COPD type: unspecified COPD HLD (hyperlipidemia) E78.5 Hyperlipidemia type: unspecified
[2021-08-31 04:48] LABS: ANCA Screen Negative (Negative); Anti Nuclear Antibody Screen NEGATIVE (NEGATIVE); Anti-dsDNA Recombinant 1 IU/mL; Complement C3 165 mg/dL (83-193); Complement Total(CH50) >60 U/mL (31-60); Cyclic Citrullinated Pep IgG <16 UNITS; Immunoglobulin IgE 15 kU/L (<OR=114); Rheumatoid Factor <14 IU/mL (<14)
== END 2021-08-28 19:56 | disposition home or self-care (01) | DRG 554 ==
LOC: ED 09:50 → 3N 15:54 → SUATTDRO 15:54 → 3N 18:03
DX: M13.89 Other specified arthritis, multiple sites; J44.9 Chronic obstructive pulmonary disease, unspecified; K21.9 Gastro-esophageal reflux disease without esophagitis; E78.5 Hyperlipidemia, unspecified; F31.9 Bipolar disorder, unspecified; Z88.1 Allergy status to other antibiotic agents; K64.9 Unspecified hemorrhoids; Z88.6 Allergy status to analgesic agent; F10.10 Alcohol abuse, uncomplicated; L95.8 Other vasculitis limited to the skin; E87.6 Hypokalemia; I10 Essential (primary) hypertension; Z87.891 Personal history of nicotine dependence